=== PATIENT | male | born 1930 | race Caucasian/White ===

== ENCOUNTER → 2016-09-24 | Outpatient (CLI) | payer MEDICARE ==
[2016-09-24 12:54] LABS: Appearance,Urine Clear (Clear); Bilirubin,Urine Negative (Negative); Glucose,Urine (UA) Negative (Negative); Ketones,Urine Negative (Negative); Leukocyte Esterase,Urine Negative (Negative); Nitrite,Urine Negative (Negative); Protein,Urine Negative (Negative); Specific Gravity,Urine 1.006 (1.001-1.035); UA Billing (MACRO vs. MICRO) CHEM; Urobilinogen,Urine <2.0 mg/dL (<2.0)
[2016-09-24 12:59] LABS: Anisocytosis Slight; CH 30.7; CHCM 33.4; HCT 27.8 % (39.0-53.0); HDW 2.72; HGB 9.7 gm/dL (13.0-17.5); MCH 32.3 pg (25.0-35.0); MCV 92.3 fL (80.0-100.0); Mean Platelet Volume 8.4; RBC 3.02 m/uL (4.30-5.90); RDW 16.5 % (11.5-15.5); WBC 6.6 k/uL (3.8-10.6)
[2016-09-24 13:15] LABS: Partial Thromboplastin Time 23.5 sec (22.0-30.0); Prothrombin Time 10.2 sec (9.0-12.0)
[2016-09-24 13:20] LABS: Calcium 9.1 mg/dL (8.4-10.2); Total Bilirubin 0.3 mg/dL (0.2-1.3); Total Protein 6.2 g/dL (6.3-8.2)
== END | disposition home or self-care (01) ==
LOC: LABPAT 11:52
PROVIDERS: ATTEND Orthopaedic Surgery
DX: Z01.812 Encounter for preprocedural laboratory examination (principal)
CPT/HCPCS: 80053; 81003; 85027; 85610; 85730; 87070

== ENCOUNTER 2016-10-11 08:00 | Inpatient (IN) | payer MEDICARE ==
[2016-10-05 12:06] VITALS: BMI 34.7
[~2016-10-11 08:00] MED LIST: ACETAMINOPHEN TAB 500 MG TAB PO ONE; DEXAMETHASONE SOD PHOSPHATE 10 MG/ML 1 ML VIAL IV ONE; HYDROmorphone 1 MG/ML 1 ML SYRINGE IVP PRN; MELOXICAM 7.5 MG TAB PO ONE; MIDAZOLAM 2 MG/2 ML VIAL IV PRN; ONDANSETRON 4 MG/2 ML VIAL IVP ONE; SCOPOLAMINE 1.5MG/72HR PATCH TRANSDERM ONE; TRANEXAMIC ACID 1,000 MG in SODIUM CHLORIDE 0.9% 100 ML IVPB ONE; ceFAZolin 2 GM in SODIUM CHLORIDE 0.9% 100 ML IVPB ONE
[2016-10-11] MEDS: LACTATED RINGERS 1,000 ML IV SCH (09:12)
[2016-10-11] MEDS ORDERED: LIDOCAINE 1% 20 ML VIAL (10MG/ML) FOR IV START INTRADERMA ONE (09:12)
[2016-10-11 09:19] LABS: Glucose,Whole Blood 143 mg/dL (75-99)
[2016-10-11] MEDS: fentaNYL (PF) 50 MCG/ML 2 ML AMP IV ONE ×2 (09:24→09:37)
[2016-10-11] MEDS ORDERED: HYDROmorphone 1 MG/ML 1 ML SYRINGE IVP PRN ×3 (09:38)
[2016-10-11] MEDS ORDERED: hydrOXYzine PAMOATE 25 MG CAP PO PRN (09:38)
[2016-10-11] MEDS ORDERED: HYDROcodone/APAP 7.5-325MG 1 EACH TAB PO PRN (09:38)
[2016-10-11] MEDS ORDERED: MAGNESIUM HYDROXIDE 2,400 MG/10 ML CUP PO PRN (09:38)
[2016-10-11] MEDS ORDERED: ONDANSETRON 4 MG/2 ML VIAL IVP PRN (09:38)
[2016-10-11] MEDS ORDERED: DIAZEPAM 5 MG TAB PO PRN ×2 (09:38)
[2016-10-11] MEDS ORDERED: NALOXONE 0.4 MG/ML 1 ML VIAL IV PRN (09:38)
[2016-10-11] MEDS ORDERED: MIDAZOLAM 2 MG/2 ML VIAL ONE (09:59)
[2016-10-11] MEDS ORDERED: HEPARIN SODIUM,PORCINE 10,000 UNIT/ML 1 ML VIAL ONE (09:59)
[2016-10-11] MEDS ORDERED: fentaNYL (PF) 50 MCG/ML 2 ML AMP ONE (09:59)
[2016-10-11] MEDS ORDERED: TRANEXAMIC ACID 1,000 MG/10 ML VIAL ONE (09:59)
[2016-10-11] MEDS ORDERED: SODIUM CHLORIDE 0.9% IRRIG 1,000 ML BTL IRRIGATION ONE (09:59)
[2016-10-11] MEDS ORDERED: ePHEDrine 50 MG/ML 1 ML AMP ONE (09:59)
[2016-10-11] MEDS ORDERED: SODIUM CHLORIDE 0.9% 100 ML BAG ONE (09:59)
[2016-10-11] MEDS ORDERED: ceFAZolin 3,000 MG in SODIUM CHLORIDE 0.9% IRRIGATIO 3,000 ML IRRIGATION ONE (10:28)
[2016-10-11] MEDS: ROPIVACAINE 246.25 MG, EPINEPHrine 0.5 MG, KETOROLAC 30 MG, cloNIDine HCL/PF 80 MCG, WA... MISCELLANE ONE ×10 (10:29→11:34)
[2016-10-11] MEDS ORDERED: LACTATED RINGERS 1,000 ML IV ONE (11:15)
--- NOTE | 2016-10-11 11:55 | P.OP ---
Date of Procedure: 10/11/16 Preoperative Diagnosis: Severe osteoarthritis right hip Postoperative Diagnosis: Severe osteoarthritis right hip Procedure(s) Performed: Right total hip arthroplasty with a direct anterior approach Implants: Garcia and nephew Polarstem size 3 standard Garcia & Nephew R3, 3 hole acetabular shell, 52 mm Garcia [employer] Nephew reflection 6.5 mm cancellus screw, 25 mm Garcia [employer] Nephew R3, XLPE 20 acetabular liner Garcia & Nephew Oxinium femoral head 36 m, +8 All components were press-fit. The articulation is ceramic on polyethylene. Anesthesia: spinal Surgeon: Negro Eldridge Surplus Property Disposal Agent #1: Marilin Walton Estimated Blood Loss (ml): 250 (63cc returned with cell saver) Pathology: other (Femoral head) Condition: stable Disposition: PACU Indications for Procedure: After failure of conservative treatment we discussed the surgical and nonsurgical treatment options at length. Patient wishes to proceed with a total hip arthroplasty with a direct anterior approach. Complications specific to this procedure were discussed at length, including but not limited to infection, leg length discrepancy, dislocation, and nerve injury. Patient is aware of all these complications and informed consent was obtained Operative Findings: The operative findings are consistent with severe osteoarthritis of the right hip Description of Procedure: Patient was seen and evaluated in the preoperative area, consent was reviewed, and the surgical site was marked with a skin marker. Patient was then brought to the operating room and given prophylactic antibiotics intravenously. 1 g of Tranexamic acid was also given. A spinal anesthetic was administered by the anesthesia department. The patient was then placed on the [place] table with the bony prominences well-padded. The hip area was then prepped and draped in usual sterile fashion. A universal timeout was then performed, which confirmed the patient's name, surgical site, ALLERGIES, and procedure being performed. Next the incision site was located at 1 cm distal and 1 cm lateral to the anterior superior iliac spine. The skin and subcutaneous tissues were sharply incised. Incision was carefully dissected down to the fascia overlying the tensor fascia lucy muscle. This fascia was then incised in line with the incision. Next, using blunt finger dissection, the tensor fascia lucy muscle was dissected off its investing fascia. The muscle was then carefully retracted laterally with a cobra retractor over the lateral neck of the femur. Next, the circumflex vessels were identified and cauterized using the AquaMantis device. The anterior hip capsule was then exposed. The capsule was then opened and an inverted T fashion. Cobra retractors were then placed intracapsularly. The proximal femur was then visualized. The femoral neck was then osteotomized appropriate level above the lesser trochanter. Small amount of traction was placed with the [place] table. A small wedge of bone was then removed from the remaining femoral head. Next, using a corkscrew femoral head was easily removed from the acetabulum. On gross visual inspection, the femoral head had complete loss of articular cartilage in multiple periarticular osteophytes. Attention was then turned to the acetabulum. the acetabulum was exposed and any remaining labrum was excised. Sequential reaming of the acetabulum was performed using fluoroscopic guidance. When the appropriate size was reached, a trial was then placed. The position and fit of the trial was checked with fluoroscopy. The trial was then removed. Then, using fluoroscopic guidance, the final implant was impacted at 20 of anteversion and 40 of abduction, and fully seated in the acetabulum. A screw was then placed in the acetabulum. Again fluoroscopy was used to check position of the screw. Next, the liner was then impacted, with a 20 elevated liner located in the anterior superior quadrant. Component locking was confirmed. Attention was then directed to the femur. With the aid of the [place] table, the femur was externally rotated to approximately 130, extended, and abducted under the opposite leg. A side hook was then placed under the proximal femur, and the side hook elevator was used to elevate the proximal femur. Retractors were then placed. A capsular release was performed, as well as a release of the conjoined tendon, which afforded excellent visualization of the proximal femur. Next, a box osteotome was used to lateralize the proximal femur. A teacher of the handicapped was then used to locate the femoral canal. Sequential broaching was then performed with appropriate size which afforded excellent fixation in the proximal femur. A trial was then placed with appropriate head and neck, and the hip was gently reduced with the aid of the [place] table. Fluoroscopy was then used to check position of the components, as well as to ensure equal leg lengths. The hip was then gently dislocated and the trials were then removed. Final implants were then impacted and the hip was again reduced. Final fluoroscopic x-rays confirmed that the components were in anatomic position, as well as equal leg lengths. The hip was also taken through range of motion, and found to be stable. The hip was then copiously irrigated with antibiotic solution with pulsatile lavage. The hip was then irrigated with Irrisept solution. The soft tissues were then injected with a ropivacaine solution, which consisted of 246.25 mg of ropivacaine, 0.5 mg of epinephrine, 30 mg of Toradol, 80 g of clonidine, and 48.45 mL of sterile water, for a total of 100 mL of fluid injected. A second dose of 1 g of Tranexamic acid was also given. the fascia was then closed with 2-0 strata fix suture. The subcutaneous tissue was closed with 3-0 Vicryl. The subcuticular tissue was closed with 3-0 strata fix suture. The skin was then closed with Dermabond tape. The patient was then transferred to the recovery room in stable condition. The political science research assistant SCARLETT Johnston was required due to the complexity of surgery, and the need for skilled surgical instruments inspector for positioning, draping, exposure, retraction, and closure of the wound.
[2016-10-11 12:24] LABS: Glucose,Whole Blood 194 mg/dL (75-99)
--- NOTE | 2016-10-11 12:47 | XR ---
Limited right hip HISTORY: Anterior hip replacement 2 intraoperative C-arm images document the procedure
--- NOTE | 2016-10-11 12:47 | FL ---
Fluoroscopy HISTORY: Hip replacement 1 minutes fluoroscopy time supplied to the referring clinician. 2 intraoperative C-arm images docum ent the procedure. See dictated report from orthopedic surgery.
--- NOTE | 2016-10-11 13:08 | XR ---
Right hip HISTORY: Status post right hip arthroplasty Single frontal view of the right hip No comparisons Postop change noted at the lumbosacral junction. Patient is status post right hip arthroplasty. Lucen cy present in the soft tissues compatible with postop state. Alignment is maintained. Small ossific d ensities present about the right hip. IMPRESSION: Orthopedic follow-up.
[2016-10-11] MEDS: ceFAZolin 2 GM in SODIUM CHLORIDE 0.9% 100 ML IVPB SCH (15:38)
[2016-10-11 16:12] LABS: Glucose,Whole Blood 298 mg/dL (75-99)
[2016-10-11] MEDS ORDERED: INSULIN LISPRO (humaLOG) 300 UNIT/3 ML VIAL SQ ONE (16:13)
[2016-10-11] MEDS: INSULIN LISPRO (humaLOG) 300 UNIT/3 ML VIAL SQ SCH ×2 (18:07→20:18)
[2016-10-11] MEDS: GABAPENTIN 300 MG CAP PO SCH (18:30)
[2016-10-11] MEDS: ATORVASTATIN 20 MG TAB PO SCH (18:31)
[2016-10-11] MEDS: DONEPEZIL 10 MG TAB PO SCH (18:31)
[2016-10-11] MEDS: TAMSULOSIN 0.4 MG CAP.ER.24H PO SCH (18:31)
[2016-10-11] MEDS: ALLOPURINOL 300 MG TAB PO SCH (18:31)
[2016-10-11] MEDS: TERAZOSIN 5 MG CAP PO SCH (18:31)
--- NOTE | 2016-10-11 18:44 | XR ---
EXAMINATION TYPE: XR chest 1V portable DATE OF EXAM: 10/11/2016 COMPARISON: NONE HISTORY: Rehabilitation placement TECHNIQUE: Single frontal view of the chest is obtained. FINDINGS: There is no heart failure nor confluent pneumonic infiltrate. There is poor respiration. T here are no hilar masses. IMPRESSION: Poor inspiration similar to old exam. No acute lung disease.
[2016-10-11] MEDS: SODIUM CHLORIDE 0.9% 1,000 ML IV SCH (19:44)
[2016-10-11 20:06] LABS: Glucose,Whole Blood 391 mg/dL (75-99)
[2016-10-11] MEDS: SENNOSIDES-DOCUSATE SODIUM 1 EACH TAB PO SCH (20:17)
[2016-10-11] MEDS: metFORMIN 500 MG TAB PO SCH (20:17)
[2016-10-11] MEDS: ASPIRIN 325 MG TAB PO SCH (20:17)
[2016-10-12] MEDS: ceFAZolin 2 GM in SODIUM CHLORIDE 0.9% 100 ML IVPB SCH (00:08)
[2016-10-12] MEDS: SODIUM CHLORIDE 0.9% 1,000 ML IV SCH (05:37)
[2016-10-12 07:05] LABS: Glucose,Whole Blood 196 mg/dL (75-99)
[2016-10-12 07:44] LABS: Calcium 8.5 mg/dL (8.4-10.2)
[2016-10-12 07:51] LABS: Basophils % (A) 0 %; CH 31.3; CHCM 33.3; Eosinophils % (A) 0 %; HCT 24.1 % (39.0-53.0); HDW 2.75; Luc # (Auto) 0.11; Luc % (Auto) 1; Lymphocytes # (A) 0.9 k/uL (1.0-4.8); Lymphocytes % (A) 8 %; MCH 31.1 pg (25.0-35.0); MCV 94.2 fL (80.0-100.0); Mean Platelet Volume 7.9; Monocytes # (A) 0.7 k/uL (0-1.0); Monocytes % (A) 6 %; Neutrophils # (A) 10.1 k/uL (1.3-7.7); Neutrophils % (A) 85 %; RBC 2.56 m/uL (4.30-5.90); RDW 15.9 % (11.5-15.5); WBC 11.8 k/uL (3.8-10.6); WBC (Perox) 12.56
[2016-10-12] MEDS: ISOSORBIDE MONONITRATE ER 60 MG TAB.ER.24H PO SCH (08:54)
[2016-10-12] MEDS: PANTOPRAZOLE 40 MG TABLET PO SCH (08:54)
[2016-10-12] MEDS: ASPIRIN 325 MG TAB PO SCH ×2 (08:54→21:40)
[2016-10-12] MEDS: metFORMIN 500 MG TAB PO SCH (08:54)
[2016-10-12] MEDS: GABAPENTIN 300 MG CAP PO SCH ×2 (08:54→17:33)
[2016-10-12] MEDS: INSULIN LISPRO (humaLOG) 300 UNIT/3 ML VIAL SQ SCH ×4 (08:55→21:40)
[2016-10-12] MEDS ORDERED: MELOXICAM 7.5 MG TAB PO SCH (09:00)
--- NOTE | 2016-10-12 09:52 | CONS ---
REASON FOR CONSULTATION: Renal failure. HISTORY OF PRESENT ILLNESS: This patient is an 86-year-old white male with history of chronic kidney disease, hypertension, diabetes, gastroesophageal reflux disease. Patient was admitted to the hospital for elective right hip arthroplasty which was done on 10/11/2016. Serum creatinine was at 1.7 mg/dl on 10/12/2016. Prior creatinine was 1.7 on 09/24/2016 as well. Patient's baseline appears to be around 1.5-1.7. Etiology of the CKD is nephrosclerosis. Patient does follow up as an outpatient. He was last seen about a month ago at the [place] office. I did note Mobic on his med list which was discontinued. The patient is currently voiding in a urinal and he states he feels okay with no complaints of nausea, vomiting, chest pains or shortness of breath. He is normally maintained on Lasix at home and states that his legs have been more swollen while his diuretics were held. Currently the patient is maintained on IV fluids at 60 mL an hour. PAST MEDICAL HISTORY: CKD stage 3B, hypertension, osteoarthritis, diabetes, gastroesophageal reflux disease, dyslipidemia. PAST SURGICAL HISTORY: Carpal tunnel surgery, back surgery, cardiac catheterization. SOCIAL HISTORY: Negative for smoking, drug abuse or alcohol abuse. MEDICATIONS: Currently include Glucophage, multivitamins, Narcan, Zofran, Imdur , insulin, Protonix, Flomax, Hytrin, Dilaudid, Neurontin, Zyloprim, aspirin, Lipitor, Valium, Aricept. On examination the patient is current comfortable. Awake, alert and oriented x3. Not in any acute distress. Blood pressure is 140/64, heart rate 67 per minute, patient is afebrile. HEART: S1/S2. LUNGS: Bilateral breath sounds are heard. ABDOMEN: Soft, obese, nontender. LOWER EXTREMITIES: Show edema 1+ bilaterally with chronic skin changes. BEHAVIOR INTERVENTIONIST: Grossly intact. LABS: Show sodium 137, potassium 4.0. Hemoglobin 8.0 gm/dl. Serum creatinine 1.7, BUN 56. ASSESSMENT: 1. Chronic kidney disease, NKF stage 3, secondary to nephrosclerosis. Renal function currently fairly stable. 2. Mild volume overload. Will discontinue the IV fluids. Patient is maintained on oral Lasix which we can continue for now. 3. Anemia, postoperatively with previous anemia of chronic disease. Check iron studies and maintain patient on Aranesp. 4. Hypertension, currently stable. 5. Status post right hip arthroplasty. Will discontinue the NSAIDs. We can use Leopold for pain control and IV Dilaudid also ordered which should be okay. PLAN: Discontinue IV fluids, discontinue Mobic, start Aranesp, check iron studies and repeat labs in the a.m. Thank you for this consultation. Will continue to follow the patient with you during his hospitalization. ABDIRIZAK
[2016-10-12 10:15] LABS: % Iron Saturation 12.2 % (20-50)
--- NOTE | 2016-10-12 10:46 | CONS ---
REASON FOR CONSULTATION: diabetes mellitus. Requested by orthopedic surgery. HISTORY OF PRESENT ILLNESS: This 86-year-old gentleman with the past medical history of CAD, history of diabetes, history of GERD, hypertension, hyperlipidemia; was admitted after total right hip arthroplasty. There is no history of any fever or rigors. No history of headache, loss of consciousness or seizures. The patient has been taking insulin previously but insulin has been cut down recently and blood sugars have been 150 in the morning after eating and at night they are around 190. Currently the blood sugars are 143, 194 and 298. PAST MEDICAL HISTORY: Diabetes mellitus, history of CAD, history of GERD, hypertension, hyperlipidemia. MEDICATIONS PRIOR TO ADMISSION: Home medications are: 1. Metformin 500 mg p.o. b.i.d. 2. Hytrin 5 mg. 3. Flomax 0.4. 4. Zocor 40 mg. 5. Protonix 40 mg p.o. 7. Mobic 15 mg. 8. Synthroid 75 mcg. 9. Imdur 120 mg p.o. a day. 10. [place] one tablet q6h p.r.n. 11. Neurontin 300 mg. 13. Lasix 80 q a.m. 14. Folic acid 1 mg. 15. Flonase. 16. Iron 325 mg daily. 17. Procrit 2000 q. monthly. 18. Aricept 10 mg with supper. 19. Aspirin 81 mg with supper. 20. Zyloprim 300 mg with supper. 21. Tylenol #3 one tab q6h p.r.n. ALLERGIES: BACLOFEN, CODEINE, MORPHINE, BACTRIM FAMILY HISTORY: History of cancer. SOCIAL HISTORY: History of occasional alcohol intake. No history of smoking. REVIEW OF SYSTEMS: ENT: No diminished hearing or vision. CARDIOVASCULAR: No angina or palpitation. RESPIRATORY: No cough.. GI: No nausea, no vomiting. : No dysuria. NERVOUS SYSTEM: No numbness or weakness. IMMUNOLOGY/ALLERGY: No asthma, hayfever. MUSCULOSKELETAL: As mentioned earlier. HEMATOLOGY: No history of anemia. ENDOCRINE: Diabetes and hypothyroidism. CONSTITUTIONAL: noted. PSYCHIATRIC: As mentioned earlier. PHYSICAL EXAMINATION: Alert and oriented x3. Pulse is 75, blood pressure 130/ 83, respiratory rate 18, temperature 97.2, pulse ox 98% on 2 liters. HEENT: Conjunctivae normal. Oral mucosa moist. NECK: No jugular venous distention. No thyroid enlargement, no lymph node enlargement. CARDIOVASCULAR: S1/.S2. RESPIRATIONS: Diminished breath sounds at the bases. No rhonchi, no crackles. ABDOMEN: Soft, nontender. No mass palpable. LEGS: Status post right hip arthroplasty. NERVOUS SYSTEM: Higher functions as mentioned earlier. Moves all four limbs. No focal weakness. LYMPHATICS. No lymph node palpable in neck or axillae. SKIN: No rash. LABS: Accu-Cheks 143, 194, 298. Other labs are done previously. Prior to admission hemoglobin is 9.7. Coags are normal. Chemistry showed creatinine 1.74. TSH is 8.460. Free T4 is 0.81. Intact PTH was 61.9. ASSESSMENT: 1. Status post right total hip arthroplasty. 2. Chronic kidney disease, stage 3. 3. Mildly increased intact PTH. 4. Diabetes mellitus type 2. 5. Anemia, normocytic anemia of chronic disease possible. 6. History of coronary artery disease. 7. History of congestive heart failure. 8. Hypertension. 9. Hyperlipidemia. 10. History of hypothyroidism. 11. History of right coronary artery stent. 12. Anxiety and depression. RECOMMENDATION AND DISCUSSION: This 86-year-old gentleman presented with multiple complex medical issues. Will monitor the patient closely, continue with current medication, continue symptomatic treatment. Recommend resuming the home medications and also recommend Accu-Cheks a.c. and h.s. Also, 10 units of insulin can be given. Recommend hemoglobin A1c. Will continue to monitor. The prognosis is guarded because of multiple complex medical issues. Further recommendations to follow. See orders for further details. I would also recommend baseline labs to ensure the normalcy of the creatinine. Otherwise, continue to monitor. Recommend resuming the antiplatelets when okay with orthopedic surgery. Otherwise, as far as the diabetes is concerned, we will control with some extra doses of insulin and hopefully will be able to control with medications. Recommend close follow up with the primary physician in the outpatient setting. ABDIRIZAK
[2016-10-12] MEDS ORDERED: DARBEPOETIN ALFA 25 MCG/0.42 ML SYRINGE SQ SCH (11:00)
[2016-10-12] MEDS: FUROSEMIDE 80 MG TAB PO PRN (11:34)
[2016-10-12 11:43] LABS: Hemoglobin A1C 7.6 % (4.2-6.1)
[2016-10-12 11:44] LABS: Glucose,Whole Blood 250 mg/dL (75-99)
[2016-10-12] MEDS: FLUTICASONE 50MCG/SPRAY NASAL 16GM EA NOSTRIL SCH (11:46)
[2016-10-12] MEDS: FOLIC ACID 1 MG TAB PO SCH (11:51)
[2016-10-12] MEDS: MULTIVITAMINS, THERA 1 EACH TAB PO SCH (11:51)
--- NOTE | 2016-10-12 12:08 | P.PN ---
Subjective Principal diagnosis: Status post right total hip arthroplasty This is a pleasant 86-year-old male who is status post right total hip arthroplasty. This is postoperative day #1. Patient was seen and examined at bedside with Dr. Negro Eldridge today. Patient states he has some dizziness with standing but the patient has been sitting up in chair today and feeling well. Patient states he is to work with physical therapy more today. Patient states his pain has been under control. Patient otherwise has no new complaints today. Objective - Vital Signs Vital signs: Vital Signs Temp 97.6 F 10/12/16 07:00 Pulse 98 10/12/16 07:00 Resp 15 10/12/16 07:00 BP 140/64 10/12/16 07:00 Pulse Ox 96 10/12/16 09:05 Intake & Output 10/11/16 10/12/16 10/12/16 18:59 06:59 18:59 Intake Total 2191 760 Output Total 675 400 400 Balance 1516 360 -400 Weight 88.904 kg Intake: IV 1711 660 Sodium Chloride 0.9% 1, 60 660 000 ml @ 60 mls/hr IV . [id number] ERNST Rx#:[id number] Intake, IV Titration 100 Amount ceFAZolin 2 gm In Sodium 100 Chloride 0.9% 100 ml @ 100 mls/hr IVPB Q8HR ERNST Rx#:[id number] Oral 480 Output: Urine 425 400 400 Estimated Blood Loss 250 Other: Voiding Method Urinal - Exam Vital signs are stable. Patient is in no acute distress and is alert and oriented 3. Calf is soft and nontender. Incision is clean, dry, and intact. Neurovascular status intact. Patient has full foot and ankle motion. - Labs CBC & Chem 7: 10/12/16 07:02 10/12/16 07:02 Labs: Abnormal Lab Results - Last 24 Hours (Table) 10/11/16 10/11/16 10/11/16 Range/Units 12:22 16:09 20:05 WBC (3.8-10.6) k/uL RBC (4.30-5.90) m/uL Hgb (13.0-17.5) gm/dL Hct (39.0-53.0) % RDW (11.5-15.5) % Neutrophils # (1.3-7.7) k/uL Lymphocytes # (1.0-4.8) k/uL BUN (9-20) mg/dL Creatinine (0.66-1.25) mg/dL Glucose (74-99) mg/dL POC Glucose (mg/dL) 194 H 298 H 391 H (75-99) mg/dL Iron (49-181) ug/dL TIBC (261-462) ug/dL % Saturation (20-50) % 10/12/16 10/12/16 10/12/16 Range/Units 07:01 07:01 07:02 WBC 11.8 H (3.8-10.6) k/uL RBC 2.56 L (4.30-5.90) m/uL Hgb 8.0 L D (13.0-17.5) gm/dL Hct 24.1 L (39.0-53.0) % RDW 15.9 H (11.5-15.5) % Neutrophils # 10.1 H (1.3-7.7) k/uL Lymphocytes # 0.9 L (1.0-4.8) k/uL BUN (9-20) mg/dL Creatinine (0.66-1.25) mg/dL Glucose (74-99) mg/dL POC Glucose (mg/dL) 196 H (75-99) mg/dL Iron 23 L (49-181) ug/dL TIBC 188 L (261-462) ug/dL % Saturation 12.2 L (20-50) % 10/12/16 10/12/16 Range/Units 07:02 11:38 WBC (3.8-10.6) k/uL RBC (4.30-5.90) m/uL Hgb (13.0-17.5) gm/dL Hct (39.0-53.0) % RDW (11.5-15.5) % Neutrophils # (1.3-7.7) k/uL Lymphocytes # (1.0-4.8) k/uL BUN 56 H (9-20) mg/dL Creatinine 1.74 H (0.66-1.25) mg/dL Glucose 164 H (74-99) mg/dL POC Glucose (mg/dL) 250 H (75-99) mg/dL Iron (49-181) ug/dL TIBC (261-462) ug/dL % Saturation (20-50) % Assessment and Plan (1) Primary osteoarthritis of right hip Status: Acute (2) S/P total hip arthroplasty Status: Acute Plan: Continue routine postop care. Continue antocoagulation. Weightbearing as tolerated with a walker Daily dressing changes, keep incision clean and dry Anticipate discharge to rehab on
[2016-10-12 16:51] LABS: Glucose,Whole Blood 208 mg/dL (75-99)
[2016-10-12] MEDS: ALLOPURINOL 300 MG TAB PO SCH (17:33)
[2016-10-12] MEDS: TERAZOSIN 5 MG CAP PO SCH (17:33)
[2016-10-12] MEDS: TAMSULOSIN 0.4 MG CAP.ER.24H PO SCH (17:33)
[2016-10-12] MEDS: LEVOTHYROXINE 75 MCG TAB PO SCH (17:33)
[2016-10-12] MEDS: DONEPEZIL 10 MG TAB PO SCH (17:33)
[2016-10-12] MEDS: ATORVASTATIN 20 MG TAB PO SCH (17:33)
[2016-10-12 20:00] LABS: Glucose,Whole Blood 231 mg/dL (75-99)
[2016-10-12] MEDS ORDERED: Acetaminophen-Codeine 300-30mg TAB PO PRN (20:35)
[2016-10-12] MEDS: Acetaminophen-Codeine 300-30mg TAB PO PRN (21:39)
[2016-10-12] MEDS: SENNOSIDES-DOCUSATE SODIUM 1 EACH TAB PO SCH (21:39)
[2016-10-12] MEDS: CALCIUM CARBONATE 500 MG CHEWABLE PO PRN (23:34)
[2016-10-12] MEDS: INSULIN GLARGINE 100 UNIT/ML 10 ML VIAL SQ SCH (23:51)
[2016-10-13] MEDS: Acetaminophen-Codeine 300-30mg TAB PO PRN (02:54)
[2016-10-13 06:57] LABS: Glucose,Whole Blood 110 mg/dL (75-99)
[2016-10-13 07:49] LABS: Calcium 8.5 mg/dL (8.4-10.2)
[2016-10-13] MEDS: HYDROcodone/APAP 7.5-325MG 1 EACH TAB PO PRN ×2 (08:20→15:12)
[2016-10-13] MEDS: GABAPENTIN 300 MG CAP PO SCH ×2 (08:20→17:31)
[2016-10-13] MEDS: INSULIN LISPRO (humaLOG) 300 UNIT/3 ML VIAL SQ SCH ×4 (08:21→21:17)
[2016-10-13] MEDS: ASPIRIN 325 MG TAB PO SCH ×2 (08:21→21:30)
[2016-10-13] MEDS: FLUTICASONE 50MCG/SPRAY NASAL 16GM EA NOSTRIL SCH (08:24)
[2016-10-13] MEDS: PANTOPRAZOLE 40 MG TABLET PO SCH (09:23)
[2016-10-13] MEDS: ISOSORBIDE MONONITRATE ER 60 MG TAB.ER.24H PO SCH (09:23)
[2016-10-13] MEDS: FUROSEMIDE 80 MG TAB PO PRN (09:24)
--- NOTE | 2016-10-13 10:18 | P.PN ---
Subjective Principal diagnosis: Status post right total hip arthroplasty This is a pleasant 86-year-old male who is status post right total hip arthroplasty. This is postoperative day #2. Patient was seen and examined at bedside with Dr. Negro Eldridge today. Patient states the pain in the hip has been under control. Patient still complains of some right knee pain. Patient states he has been up and walking. Patient otherwise has no new complaints today. Objective - Vital Signs Vital signs: Vital Signs Temp 99 F 10/13/16 07:00 Pulse 68 10/13/16 07:00 Resp 15 10/13/16 07:00 BP 136/66 10/13/16 07:00 Pulse Ox 98 10/13/16 07:00 Intake & Output 10/12/16 10/13/16 10/13/16 18:59 06:59 18:59 Intake Total 120 Output Total 700 800 200 Balance -700 -800 -80 Intake: Oral 120 Output: Urine 700 800 200 Other: Voiding Method Urinal Urinal Toilet Urinal - Exam Vital signs are stable. Patient is in no acute distress and is alert and oriented 3. Calf is soft and nontender. Dressing over incision is intact. Neurovascular status intact. Patient has full foot and ankle motion. - Labs CBC & Chem 7: 10/12/16 07:02 10/13/16 07:00 Labs: Abnormal Lab Results - Last 24 Hours (Table) 10/12/16 10/12/16 10/12/16 Range/Units 07:01 07:02 11:38 BUN (9-20) mg/dL Creatinine (0.66-1.25) mg/dL POC Glucose (mg/dL) 250 H (75-99) mg/dL Hemoglobin A1c 7.6 H (4.2-6.1) % Iron 23 L (49-181) ug/dL TIBC 188 L (261-462) ug/dL % Saturation 12.2 L (20-50) % 10/12/16 10/12/16 10/13/16 Range/Units 16:42 19:57 06:54 BUN (9-20) mg/dL Creatinine (0.66-1.25) mg/dL POC Glucose (mg/dL) 208 H 231 H 110 H (75-99) mg/dL Hemoglobin A1c (4.2-6.1) % Iron (49-181) ug/dL TIBC (261-462) ug/dL % Saturation (20-50) % 10/13/16 Range/Units 07:00 BUN 65 H (9-20) mg/dL Creatinine 2.01 H (0.66-1.25) mg/dL POC Glucose (mg/dL) (75-99) mg/dL Hemoglobin A1c (4.2-6.1) % Iron (49-181) ug/dL TIBC (261-462) ug/dL % Saturation (20-50) % Assessment and Plan (1) Primary osteoarthritis of right hip Status: Acute (2) S/P total hip arthroplasty Status: Acute Plan: Continue routine postop care. Continue antocoagulation. Weightbearing as tolerated with a walker Daily dressing changes, keep incision clean and dry Discussed with patient that if he is still have knee pain at 2 week follow up appointment, patient may have a cortisone injection at that time. Anticipate discharge to rehab on
[2016-10-13 11:14] LABS: Glucose,Whole Blood 255 mg/dL (75-99)
--- NOTE | 2016-10-13 11:32 | PN ---
DATE OF SERVICE: 10/12/2016 This is an 86-year-old gentleman who was admitted after right total hip arthroplasty, has improved significantly. No chest pain or palpitation, no fever. On exam, alert and oriented x3. The pulse is 62, blood pressure is 130/52, respirations 16, temperature is 98.2, pulse ox 96% on room air. HEENT: Conjunctivae normal. NECK: No jugular venous distension. RESPIRATORY: Breath sounds diminished at the bases, some scattered rhonchi, no crackles. ABDOMEN: Soft, nontender, no mass palpable. LEGS: Status post surgery. NERVOUS SYSTEM: No focal deficits. LABS: Hemoglobin is 18, creatinine is 1.74. ASSESSMENT: 1. Status post right total knee arthroplasty. 2. Chronic kidney disease stage III. 3. Mildly increased intact PTH. 4. Diabetes mellitus type 2. 5. Normocytic anemia of chronic disease. 6. History of coronary artery disease. 7. History of congestive heart failure. 8. Hypertension. 9. Hyperlipidemia. 10. Hypothyroidism. 11. History of coronary artery disease, stent. 12. Anxiety, depression. RECOMMENDATION: Recommend to continue with the current medication, continue with the symptomatic treatment. Otherwise, will monitor the patient closely. Continue with the hydration, monitor blood sugars closely. Otherwise, recommend to hold the metformin and also initiate small dose of Lantus and continue to monitor. Will initiate incentive spirometry. Further recommendations to follow. MTDD
[2016-10-13] MEDS: FOLIC ACID 1 MG TAB PO SCH (13:04)
[2016-10-13] MEDS: MULTIVITAMINS, THERA 1 EACH TAB PO SCH (13:05)
[2016-10-13] MEDS: CALCIUM CARBONATE 500 MG CHEWABLE PO PRN (16:15)
[2016-10-13 17:28] LABS: Glucose,Whole Blood 201 mg/dL (75-99)
[2016-10-13] MEDS: TERAZOSIN 5 MG CAP PO SCH (17:30)
[2016-10-13] MEDS: ALLOPURINOL 300 MG TAB PO SCH (17:30)
[2016-10-13] MEDS: LEVOTHYROXINE 75 MCG TAB PO SCH (17:31)
[2016-10-13] MEDS: DONEPEZIL 10 MG TAB PO SCH (17:31)
[2016-10-13] MEDS: TAMSULOSIN 0.4 MG CAP.ER.24H PO SCH (17:31)
[2016-10-13] MEDS: ATORVASTATIN 20 MG TAB PO SCH (17:44)
[2016-10-13] MEDS: LACTATED RINGERS 1,000 ML IV SCH ×2 (18:58→18:59)
[2016-10-13 20:33] LABS: Glucose,Whole Blood 216 mg/dL (75-99)
[2016-10-13] MEDS: INSULIN GLARGINE 100 UNIT/ML 10 ML VIAL SQ SCH (21:16)
[2016-10-13] MEDS: SENNOSIDES-DOCUSATE SODIUM 1 EACH TAB PO SCH (21:16)
[2016-10-14] MEDS: Acetaminophen-Codeine 300-30mg TAB PO PRN ×2 (00:22→18:45)
[2016-10-14] MEDS: LACTATED RINGERS 1,000 ML IV SCH (05:24)
[2016-10-14 07:05] LABS: Glucose,Whole Blood 59 mg/dL (75-99)
[2016-10-14 07:20] LABS: Glucose,Whole Blood 86 mg/dL (75-99)
[2016-10-14] MEDS: INSULIN LISPRO (humaLOG) 300 UNIT/3 ML VIAL SQ SCH ×5 (07:38→21:44)
[2016-10-14 07:54] LABS: Basophils % (A) 0 %; CH 31.1; CHCM 32.8; Eosinophils # (A) 0.3 k/uL (0-0.7); Eosinophils % (A) 4 %; HCT 23.5 % (39.0-53.0); HDW 2.58; HGB 7.6 gm/dL (13.0-17.5); Luc # (Auto) 0.13; Luc % (Auto) 2; Lymphocytes # (A) 1.5 k/uL (1.0-4.8); Lymphocytes % (A) 19 %; MCH 30.8 pg (25.0-35.0); MCHC 32.5 g/dL (31.0-37.0); Mean Platelet Volume 8.1; Monocytes # (A) 0.5 k/uL (0-1.0); Monocytes % (A) 6 %; Neutrophils # (A) 5.3 k/uL (1.3-7.7); Neutrophils % (A) 69 %; RBC 2.48 m/uL (4.30-5.90); RDW 15.9 % (11.5-15.5); WBC 7.7 k/uL (3.8-10.6); WBC (Perox) 8.18
--- NOTE | 2016-10-14 08:08 | PN ---
DATE OF SERVICE: 10/13/2017 This 86-year-old gentleman admitted after right total hip arthroplasty also had chronic kidney disease stage III. No chest pain or palpitation. No fever. No shortness of breath. On exam, alert and oriented x3. Pulse is 68. Blood pressure is 136/66, respirations 15, temperature 98 degrees, pulse ox 98% on room air. HEENT: Conjunctivae normal. NECK: No jugular venous distention. CARDIOVASCULAR: S1 and S2 muffled. RESPIRATORY: Breath sounds diminished at the bases. No rhonchi, no crackles. ABDOMEN: Soft, LEGS: Status post surgery. NERVOUS SYSTEM: No focal deficits. Labs are creatinine 2.01. ASSESSMENT: 1. Status post right total hip arthroplasty. 2. Chronic kidney disease stage III. 3. Mild increase intact PTH 4. Diabetes mellitus type 2. 5. Normocytic anemia, chronic disease. 6. History of coronary artery disease. 7. History of congestive heart failure. RECOMMENDATIONS AND DISCUSSION: Recommend to continue current medications. Continue symptomatic treatment. Otherwise closely monitor creatinine, DVT prophylaxis. Further recommendations to follow. MTDD
--- NOTE | 2016-10-14 08:43 | P.DS ---
Providers Date of admission: 10/11/16 08:00 Expected date of discharge: 10/14/16 Attending physician: Negro Eldridge Consults: 10/11/16 09:38 Consult Physician Routine Consulting Provider: Aster Velasco Consult Reason/Comments: medical management Do you want consulting provider notified?: Yes Primary care physician: Mor Lara - Discharge Diagnosis(es) (1) Primary osteoarthritis of right hip Current Visit: Yes Status: Acute (2) S/P total hip arthroplasty Current Visit: Yes Status: Acute Hospital Course: This is a 86-year-old male with known history of degenerative arthritis of the right hip. The patient presents for evaluation. After discussion and consideration patient elects to proceed with total hip arthroplasty. The patient is seen preoperatively by Dr. Eldridge and cleared for surgery. Patient is admitted to [facility] on 10/11/2016 for total hip arthroplasty. The procedures performed without complication or sequelae. The patient is doing well postoperatively. Labs and vital signs are stable on day of discharge. Patient's hemoglobin was 7.6 on day of discharge. Patient will receive one unit of blood today. On day of discharge patient's hip incision is healing well. There is minimal erythema. There is no drainage noted at this time. There is minimal soft tissue swelling to the hip and thigh. Patient has full foot and ankle motion without difficulty or pain. Neurovascular status to the right lower extremity is intact. Patient is discharged to rehab in good condition. Please see med rec for accurate list of home medications. Plan - Discharge Summary New Discharge Prescriptions: New Aspirin 325 mg PO BID #60 tab Sennosides-Docusate Sodium [Senokot-S] 1 tab PO BID #60 tablet Acetaminophen-Codeine 300-30mg [Tylenol #3] 1 - 2 tab PO Q4-6H PRN #90 tablet PRN Reason: Pain No Action Pantoprazole Sodium 40 mg PO DAILY Gabapentin [Neurontin] 300 mg PO QAM Gabapentin 600 mg PO W/SUPPER Terazosin [Hytrin] 5 mg PO W/SUPPER Aspirin 81 mg PO W/SUPPER Tamsulosin [Flomax] 0.4 mg PO W/SUPPER Simvastatin [Zocor] 40 mg PO W/SUPPER Levothyroxine Sodium [Synthroid] 75 mcg PO DAILY@1600 Furosemide [Lasix] 80 - 160 mg PO QAM PRN PRN Reason: Edema Allopurinol [Zyloprim] 300 mg PO W/SUPPER Donepezil [Aricept] 10 mg PO W/SUPPER Ferrous Sulfate [Iron (65 MG Elemental)] 325 mg PO DAILY Isosorbide Mononitrate [Imdur] 120 mg PO DAILY Multivit-Min/FA/Lycopen/Lutein [Centrum Silver Tablet] 1 tab PO DAILY Epoetin Garrett [Procrit] 2,000 unit INJ QMONTH PRN PRN Reason: anemia Acetaminophen-Codeine 300-30mg [Tylenol #3] 1 tab PO Q6H PRN PRN Reason: Pain Fluticasone Nasal [place] [Flonase Nasal [place]] 1 spray EA NOSTRIL DAILY Meloxicam [Mobic] 15 mg PO DAILY metFORMIN HCL [Glucophage] 500 mg PO BID Folic Acid(Dose Unknown) 1 tab PO DAILY Hydrocodone/Acetaminophen [[place] 5-325] 1 tab PO Q6HR PRN PRN Reason: Pain Discharge Medication List Aspirin 81 mg PO W/SUPPER 08/31/13 [History] Gabapentin 600 mg PO W/SUPPER 08/31/13 [History] Gabapentin [Neurontin] 300 mg PO QAM 08/31/13 [History] Pantoprazole Sodium 40 mg PO DAILY 08/31/13 [History] Simvastatin [Zocor] 40 mg PO W/SUPPER 08/31/13 [History] Tamsulosin [Flomax] 0.4 mg PO W/SUPPER 08/31/13 [History] Terazosin [Hytrin] 5 mg PO W/SUPPER 08/31/13 [History] Furosemide [Lasix] 80 - 160 mg PO QAM PRN 12/17/13 [History] Levothyroxine Sodium [Synthroid] 75 mcg PO DAILY@1600 12/17/13 [History] Allopurinol [Zyloprim] 300 mg PO W/SUPPER 03/10/14 [History] Donepezil [Aricept] 10 mg PO W/SUPPER 11/13/15 [History] Epoetin Garrett [Procrit] 2,000 unit INJ QMONTH PRN 11/13/15 [History] Ferrous Sulfate [Iron (65 MG Elemental)] 325 mg PO DAILY 11/13/15 [History] Isosorbide Mononitrate [Imdur] 120 mg PO DAILY 11/13/15 [History] Multivit-Min/FA/Lycopen/Lutein [Centrum Silver Tablet] 1 tab PO DAILY 11/13/15 [ History] Acetaminophen-Codeine 300-30mg [Tylenol #3] 1 tab PO Q6H PRN 10/05/16 [History] Fluticasone Nasal [place] [Flonase Nasal [place]] 1 spray EA NOSTRIL DAILY 10/05/16 [History] Folic Acid(Dose Unknown) 1 tab PO DAILY 10/05/16 [History] Meloxicam [Mobic] 15 mg PO DAILY 10/05/16 [History] metFORMIN HCL [Glucophage] 500 mg PO BID 10/05/16 [History] Hydrocodone/Acetaminophen [[place] 5-325] 1 tab PO Q6HR PRN 10/11/16 [History] Acetaminophen-Codeine 300-30mg [Tylenol #3] 1 - 2 tab PO Q4-6H PRN #90 tablet [Rx] Aspirin 325 mg PO BID #60 tab 10/14/16 [Rx] Sennosides-Docusate Sodium [Senokot-S] 1 tab PO BID #60 tablet 10/14/16 [Rx] Follow up Appointment(s)/Referral(s): Negro Eldridge DO [Doctor of Osteopathic Medicine] - 2 Weeks Activity/Diet/Wound Care/Special Instructions: Weightbearing as tolerated with walker May shower after 2 days if no drainage from the incision Follow-up with [facility] in 2 weeks with any questions or concerns, [phone] Discharge Disposition: TRANSFER TO SNF/F
[2016-10-14] MEDS: ASPIRIN 325 MG TAB PO SCH ×2 (09:09→21:43)
[2016-10-14] MEDS: GABAPENTIN 300 MG CAP PO SCH ×2 (09:10→17:29)
[2016-10-14] MEDS: FOLIC ACID 1 MG TAB PO SCH (09:10)
[2016-10-14] MEDS: FLUTICASONE 50MCG/SPRAY NASAL 16GM EA NOSTRIL SCH (09:10)
[2016-10-14] MEDS: MULTIVITAMINS, THERA 1 EACH TAB PO SCH (09:10)
[2016-10-14] MEDS: PANTOPRAZOLE 40 MG TABLET PO SCH (09:10)
[2016-10-14] MEDS: ISOSORBIDE MONONITRATE ER 60 MG TAB.ER.24H PO SCH (09:10)
[2016-10-14] MEDS: HYDROcodone/APAP 7.5-325MG 1 EACH TAB PO PRN (09:13)
[2016-10-14 09:34] LABS: Calcium 8.5 mg/dL (8.4-10.2); Potassium 3.6 mmol/L (3.5-5.1)
[2016-10-14 10:37] LABS: Appearance,Urine Clear (Clear); Bilirubin,Urine Negative (Negative); Glucose,Urine (UA) Negative (Negative); Ketones,Urine Negative (Negative); Leukocyte Esterase,Urine Negative (Negative); Nitrite,Urine Negative (Negative); PH, Urine 5.5 (5.0-8.0); Protein,Urine Trace (Negative); UA Billing (MACRO vs. MICRO) CHEM; Urobilinogen,Urine <2.0 mg/dL (<2.0)
[2016-10-14 11:39] LABS: Glucose,Whole Blood 215 mg/dL (75-99)
--- NOTE | 2016-10-14 12:03 | PN ---
The patient is seen for followup for chronic kidney disease. He is status post right hip arthroplasty. Patient did receive a couple of doses of nonsteroidal anti-inflammatory agents. His serum creatinine was at 1.7. It went up to 2.0 and now it is back at 1.8. His baseline creatinine has been lately around 1.5 to 1.7 mg/dL. Patient's hemoglobin was noted to be low at 7.6 and he is being transfused 1 unit of packed RBCs. On examination today, the patient is comfortable. Blood pressure 153/65, heart rate 99 per minute. He is afebrile. EXAMINATION OF THE HEART: S1 and S2. EXAMINATION OF THE LUNGS: Decreased breath sounds at the bases. Abdomen is soft, nontender. Examination of the lower extremities shows edema, trace bilaterally. HEAD OF INSIGHT exam is grossly intact. Labs show a hemoglobin of 7.6 from today. Serum creatinine 1.8. BUN 70. Sodium 139, potassium 3.6. ASSESSMENT: 1. 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 2. Anemia, postoperatively being transfused 1 unit packed RBCs. Patient does have underlying anemia of chronic disease and is maintained on Aranesp. 3. Mild volume overload. Continue with current dose of oral Lasix. 4. Status post right hip arthroplasty. PLAN: Okay for discharge from nephrology standpoint. Repeat CBC and BMP as outpatient in about one week's time and we will follow up on the need for Procrit as outpatient. [facility]
[2016-10-14] MEDS: FUROSEMIDE 80 MG TAB PO PRN (13:30)
[2016-10-14 17:02] LABS: Glucose,Whole Blood 132 mg/dL (75-99)
[2016-10-14] MEDS: TAMSULOSIN 0.4 MG CAP.ER.24H PO SCH (17:28)
[2016-10-14] MEDS: TERAZOSIN 5 MG CAP PO SCH (17:28)
[2016-10-14] MEDS: ALLOPURINOL 300 MG TAB PO SCH (17:28)
[2016-10-14] MEDS: LEVOTHYROXINE 75 MCG TAB PO SCH (17:48)
[2016-10-14] MEDS: ATORVASTATIN 20 MG TAB PO SCH (17:48)
[2016-10-14] MEDS: DONEPEZIL 10 MG TAB PO SCH (18:39)
[2016-10-14 20:57] LABS: Glucose,Whole Blood 234 mg/dL (75-99)
[2016-10-14] MEDS: SENNOSIDES-DOCUSATE SODIUM 1 EACH TAB PO SCH (21:43)
[2016-10-15 00:50] LABS: Glucose,Whole Blood 210 mg/dL (75-99)
[2016-10-15] MEDS: Acetaminophen-Codeine 300-30mg TAB PO PRN ×2 (04:07→08:59)
[2016-10-15 07:05] LABS: Glucose,Whole Blood 181 mg/dL (75-99)
[2016-10-15 07:58] LABS: Basophils % (A) 0 %; CH 31.4; CHCM 33.9; Eosinophils # (A) 0.4 k/uL (0-0.7); Eosinophils % (A) 6 %; HCT 25.2 % (39.0-53.0); HGB 8.5 gm/dL (13.0-17.5); Luc # (Auto) 0.12; Luc % (Auto) 2; Lymphocytes # (A) 0.9 k/uL (1.0-4.8); Lymphocytes % (A) 13 %; MCH 31.3 pg (25.0-35.0); MCHC 33.6 g/dL (31.0-37.0); MCV 93.1 fL (80.0-100.0); Mean Platelet Volume 8.6; Monocytes # (A) 0.4 k/uL (0-1.0); Monocytes % (A) 5 %; Neutrophils # (A) 5.4 k/uL (1.3-7.7); Neutrophils % (A) 75 %; WBC 7.3 k/uL (3.8-10.6); WBC (Perox) 7.96
[2016-10-15 08:05] LABS: Calcium 8.2 mg/dL (8.4-10.2); Potassium 3.8 mmol/L (3.5-5.1)
--- NOTE | 2016-10-15 08:37 | P.PN ---
Progress Note - Text This is an 86-year-old male status post total hip arthroplasty. His discharge was held yesterday due to postoperative anemia. His hemoglobin is 8.5 today. He is stable from an orthopedic standpoint for transfer to inpatient rehab. Patient may be discharged today. Please see previous discharge summary and med rec.
[2016-10-15] MEDS: GABAPENTIN 300 MG CAP PO SCH (08:56)
[2016-10-15] MEDS: ASPIRIN 325 MG TAB PO SCH (08:56)
[2016-10-15] MEDS: PANTOPRAZOLE 40 MG TABLET PO SCH (08:56)
[2016-10-15] MEDS: FLUTICASONE 50MCG/SPRAY NASAL 16GM EA NOSTRIL SCH (08:56)
[2016-10-15] MEDS: ISOSORBIDE MONONITRATE ER 60 MG TAB.ER.24H PO SCH (08:57)
[2016-10-15] MEDS: FUROSEMIDE 80 MG TAB PO PRN (08:57)
[2016-10-15] MEDS: INSULIN LISPRO (humaLOG) 300 UNIT/3 ML VIAL SQ SCH ×4 (09:00→13:15)
[2016-10-15] MEDS: LACTATED RINGERS 1,000 ML IV SCH (09:03)
--- NOTE | 2016-10-15 09:32 | PN ---
DATE OF SERVICE: 10/14/2016 This 86-year-old gentleman was admitted after right total hip joint arthroplasty , also has chronic kidney disease stage III. The patient is being closely monitored. The patient also had hypoglycemia today and multiple consultants are following the patient closely. The hemoglobin is also found to be 7.6 today. The glucose was 45. The patient also had elevated creatinine. The patient is apparently taking metformin at home. Patient also had some hypoglycemia at home. PAST MEDICAL HISTORY: Reviewed. REVIEW OF SYSTEMS: CARDIOVASCULAR: No angina. RESPIRATORY: As mentioned earlier. GI: As mentioned. : No dysuria. NERVOUS SYSTEM: No numbness or weakness. CURRENT MEDICATIONS: 1. Tylenol #3 2. [place] 7.5 3. Zyloprim 300 mg 4. Lipitor. 5. TUMs. 7. Valium 8. Aricept 9. Lasix. 10. Dilaudid. 11. Vistaril 12. Humalog 13. Imdur 14. Lactated Ringers 15. Synthroid 16. Milk of Magnesium 17. Narcan 18. Zofran 19. Flomax 20. Hytrin Doses reviewed. PHYSICAL EXAMINATION: The patient is alert and oriented x3. Pulse is 69, blood pressure 140/66, respirations 16, temperature 98.1, pulse ox 97% on room air. HEENT: Conjunctivae normal. NECK: No jugular venous distention. CARDIOVASCULAR: S1, S2. RESPIRATORY: Breath sounds diminished at the bases. A few scattered rhonchi and crackles. ABDOMEN: Soft, nontender, no mass palpable. LEGS: No edema, no swelling. NERVOUS SYSTEM: No focal deficits. LABS: WBC 7.7, hemoglobin 7.6, INR 1.8. ASSESSMENT: 1. Status post right hip joint arthroplasty 2. Anemia. 3. Chronic kidney disease, stage III. 4. Mild increase in intact PTH. 5. Hypoglycemia. 6. Diabetes mellitus type 2 uncontrolled. 7. Normocytic anemia of chronic disease. 8. History of coronary artery disease. 9. History of chronic heart failure. RECOMMENDATIONS AND DISCUSSION: In this 86-year-old who presented with multiple complex medical issues, will monitor at the patient closely. Continue the current medications, continue symptomatic treatment. At this time I recommend to stop the insulin and monitor sugars closely. NovoLog scale, 2 units with meals, which is to be held with Accu-Cheks less than 150 plus the scale. Metformin may also be stopped. Repeat labs in the morning. Closely monitor. Further recommendations to follow. One unit of transfusion has been given. See orders for details. Discussed with the patient and discussed with staff. See orders for further details. MTDD
[2016-10-15 09:34] VITALS: BP 132/54; PULSE 84; RESP 14; TEMP 98.9
[2016-10-15 11:50] LABS: Glucose,Whole Blood 172 mg/dL (75-99)
[2016-10-15] MEDS: MULTIVITAMINS, THERA 1 EACH TAB PO SCH (13:15)
[2016-10-15] MEDS: FOLIC ACID 1 MG TAB PO SCH (13:15)
--- NOTE | 2016-10-15 13:23 | PN ---
The patient is seen for follow-up for chronic kidney disease. He did have mild acute kidney injury with improvement in his renal function. Creatinine did not go up which was most likely related to the anemia. Hemoglobin dropped to 7.6. The patient was transfused yesterday. Hemoglobin is at 8.5 now. Serum creatinine down to 1.68. The patient is currently maintained on Lasix which we will continue. He does have underlying CKD stage IIIB secondary to nephrosclerosis. On examination, blood pressure is 132/54. Heart rate is 68 per minute. He is afebrile. Examination of the heart, S1, S2. Examination of the lungs bilateral breath sounds are heard. Abdomen is soft, nontender. Examination of the lower extremities shows edema 1+ bilaterally. Labs shows sodium 137, potassium 3.8, serum creatinine 1.68. Hemoglobin 8.5. ASSESSMENT: 1. Acute kidney injury, mainly prerenal associated with anemia, currently improved. 2. Chronic kidney disease, NKF Stage IIIB secondary to nephrosclerosis. The patient will follow-up as an outpatient at the [place] office. 3. Status post right hip arthroplasty. 4. Anemia, postoperatively, status post one unit packed RBC transfusion. Continue Aranesp. The patient is maintained on Procrit as an outpatient which we will continue. PLAN: The patient is stable for discharge from nephrology standpoint. He will follow-up as an outpatient for CKD at the [place] office. ABDIRIZAK
--- NOTE | 2016-10-15 21:49 | P.PN ---
Subjective This 86-year-old gentleman was admitted after right hip arthroplasty being closely monitored. The patient and chronic kidney disease stage III. No chest pain palpitation or shortness of breath. Objective - Vital Signs Vital signs: Vital Signs Temp 98.9 F 10/15/16 07:00 Pulse 84 10/15/16 08:00 Resp 14 10/15/16 07:00 BP 132/54 10/15/16 07:00 Pulse Ox 97 10/15/16 07:00 Intake & Output 10/15/16 10/15/16 10/16/16 06:59 18:59 06:59 Intake Total 780 120 Output Total 250 500 Balance 530 -380 Intake: Oral 780 120 Output: Urine 500 Urine/Stool Mix 250 Other: # Voids 350 4 - Exam On exam, alert and oriented x3. HEENT: Conjunctivae normal. eyes normal. NECK: No JVD. No thyroid enlargement. No LNs CARDIOVASCULAR: S1, S2 muffled. No murmur RESPIRATION: Breath sounds diminished in the bases. No rhonchi or crackles. No bronchial breathing. ABDOMEN: Soft, nontender . No guarding. no masses palpable. No ascites, No hepatosplenomegaly.Bowel sounds heard. LEGS: Status post surgery NERVOUS SYSTEM: Cranial N 2-12 grossly normal. Moves all 4 limbs. No focal deficits. No sensory deficit. No signs of cerebellar dysfucntion. Skin: no ulcer no rash Joints: No active swelling. No inflammation. Lymphatic system. No LN neck axilla or groin. - Labs CBC & Chem 7: 10/15/16 07:26 10/15/16 07:26 Labs: Abnormal Lab Results - Last 24 Hours (Table) 10/15/16 10/15/16 10/15/16 Range/Units 00:48 07:02 07:26 RBC 2.70 L (4.30-5.90) m/uL Hgb 8.5 L (13.0-17.5) gm/dL Hct 25.2 L (39.0-53.0) % RDW 16.0 H (11.5-15.5) % Lymphocytes # 0.9 L (1.0-4.8) k/uL BUN (9-20) mg/dL Creatinine (0.66-1.25) mg/dL Glucose (74-99) mg/dL POC Glucose (mg/dL) 210 H 181 H (75-99) mg/dL Calcium (8.4-10.2) mg/dL 10/15/16 10/15/16 Range/Units 07:26 11:48 RBC (4.30-5.90) m/uL Hgb (13.0-17.5) gm/dL Hct (39.0-53.0) % RDW (11.5-15.5) % Lymphocytes # (1.0-4.8) k/uL BUN 60 H (9-20) mg/dL Creatinine 1.68 H (0.66-1.25) mg/dL Glucose 153 H (74-99) mg/dL POC Glucose (mg/dL) 172 H (75-99) mg/dL Calcium 8.2 L (8.4-10.2) mg/dL Assessment and Plan Plan: Assessment 1. Status post right total joint arthroplasty 2. Anemia 3. Chronic kidney disease stage III 4. Diabetes type 2 uncontrolled and hypoglycemia Plan In this 86-year-old gentleman who was admitted after surgery I would recommend to continue the current medications. Recommend to hold metformin at this time. Monitor Accu-Cheks closely. Follow-up with the primary physician. Monitor creatinine. Rest of the recommendations per orthopedic surgery.
== END 2016-10-15 16:09 | DRG 470 ==
LOC: 2ORMAIN 08:00 → 3SUR 12:14
PROVIDERS: ADMIT Orthopaedic Surgery; ATTEND Orthopaedic Surgery
PROC: 0SR904A Replacement of Right Hip Joint with Ceramic on Polyethylene Synthetic Substitute, Uncemented, Open Approach (ICD-10-PCS; principal; 2016-10-11 09:30)
DX: M16.11 Unilateral primary osteoarthritis, right hip (principal); E11.22 Type 2 diabetes mellitus with diabetic chronic kidney disease; N17.9 Acute kidney failure, unspecified; N18.4 Chronic kidney disease, stage 4 (severe); I13.0 Hypertensive heart and chronic kidney disease with heart failure and stage 1 through stage 4 chronic kidney disease, or unspecified chronic kidney disease; E11.649 Type 2 diabetes mellitus with hypoglycemia without coma; I50.9 Heart failure, unspecified; D63.8 Anemia in other chronic diseases classified elsewhere; E03.9 Hypothyroidism, unspecified; E78.5 Hyperlipidemia, unspecified; F32.9 Major depressive disorder, single episode, unspecified; F41.9 Anxiety disorder, unspecified; I25.10 Atherosclerotic heart disease of native coronary artery without angina pectoris; K21.9 Gastro-esophageal reflux disease without esophagitis; Z79.82 Long term (current) use of aspirin; Z88.2 Allergy status to sulfonamides; Z79.84 Long term (current) use of oral hypoglycemic drugs; Z88.5 Allergy status to narcotic agent; Z95.5 Presence of coronary angioplasty implant and graft; Z79.899 Other long term (current) drug therapy
CPT/HCPCS: 71010; 73501; 80048; 81003; 83036; 83540; 83550; 85025; 86850; 86900; 86901; 86920; 88300; 94760

== ENCOUNTER → 2016-12-22 | Outpatient (CLI) | payer MEDICARE ==
--- NOTE | 2016-12-22 12:36 | FL ---
EXAMINATION: Cervical and Thoracic Esophagram DATE OF EXAM: 12/22/2016 CLINICAL INDICATION: 86-year-old male with dysphagia, patient complains of long-standing reflux, wors ening over the last 6 weeks. COMPARISON: None Total Fluoroscopy Time: 1.6 minutes. Total images: 28 FINDINGS: Swallowing shows some superficial penetration. No aspiration. Otherwise, hypopharyngeal anatomy is pr eserved. The cervical and thoracic portions have a normal course and caliber. Very mild tertiary peristaltic c ontractions are noted. No persistent filling defect or fixed narrowing is encountered in the esophagus. There is a small hiatal hernia. Valsalva maneuver elicits severe gastroesophageal reflux to the level of the thoracic inlet. Patient complains of feeling the barium in the back of his throat. Incidentally, there is diffuse gastric fold thickening with suggestion of multiple hyperplastic polyp s in the stomach. IMPRESSION: 1. Small hiatal hernia but with severe gastroesophageal reflux at least to the thoracic inlet. Patien t reports feeling the barium in the back of his throat when the reflux is visualized. 2. 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
== END | disposition home or self-care (01) ==
LOC: RADFLWHC 10:28
PROVIDERS: ATTEND Surgery Plastic and Reconstructive Surgery
DX: K44.9 Diaphragmatic hernia without obstruction or gangrene (principal); K21.9 Gastro-esophageal reflux disease without esophagitis
CPT/HCPCS: 74220

== ENCOUNTER 2017-01-19 06:56 | Day surgery (SDC) | payer MEDICARE ==
[2017-01-18 09:16] VITALS: BMI 34.5
[~2017-01-19 06:56] MED LIST changes: -ACETAMINOPHEN TAB 500 MG TAB PO ONE; -DEXAMETHASONE SOD PHOSPHATE 10 MG/ML 1 ML VIAL IV ONE; -HYDROmorphone 1 MG/ML 1 ML SYRINGE IVP PRN; +LACTATED RINGERS 1,000 ML IV SCH; -MELOXICAM 7.5 MG TAB PO ONE; -MIDAZOLAM 2 MG/2 ML VIAL IV PRN; -ONDANSETRON 4 MG/2 ML VIAL IVP ONE; -SCOPOLAMINE 1.5MG/72HR PATCH TRANSDERM ONE; -TRANEXAMIC ACID 1,000 MG in SODIUM CHLORIDE 0.9% 100 ML IVPB ONE; -ceFAZolin 2 GM in SODIUM CHLORIDE 0.9% 100 ML IVPB ONE
[2017-01-19 07:14] VITALS: RESP 18; TEMP 96.1
[2017-01-19] MEDS ORDERED: LACTATED RINGERS 1,000 ML IV ONE (07:19)
[2017-01-19 07:23] LABS: Glucose,Whole Blood 132 mg/dL (75-99)
[2017-01-19] MEDS ORDERED: PROPOFOL 10 MG/ML 20 ML VIAL IV ONE (07:38)
[2017-01-19] MEDS ORDERED: LIDOCAINE 1% INJ 10MG/ML (20 ML MDV) ONE (07:38)
--- NOTE | 2017-01-19 07:42 | P.GSHP ---
History of Present Illness H&P Date: 01/19/17 CHIEF COMPLAINT: GERD HISTORY OF PRESENT ILLNESS: The patient is a 86-year-old male who presents reports gastroesophageal reflux disease. Upper endoscopy was offered for further evaluation and management. PAST MEDICAL HISTORY: Please see list. PAST SURGICAL HISTORY: Please see list. MEDICATIONS: Please see list. ALLERGIES: Please see list. SOCIAL HISTORY: No illicit drug use FAMILY HISTORY: No reports of Crohn disease or ulcerative colitis. REVIEW OF ORGAN SYSTEMS: CONSTITUTIONAL: No reports of fevers or chills. GI: Denies any blood in stools or constipation. PHYSICAL EXAM: VITAL SIGNS: Stable GENERAL: Well-developed and pleasant in no acute distress. HEENT: No scleral icterus. Extraocular movements grossly intact. Moist buccal mucosa. NECK: Supple without lymphadenopathy. CHEST: Unlabored respirations. Equal bilateral excursions. CARDIOVASCULAR: Regular rate and rhythm. Distal 2+ pulses. ABDOMEN: Soft, nondistended. MUSCULOSKELETAL: No clubbing, cyanosis, or edema. ASSESSMENT: 1. Gastroesophageal reflux disease PLAN: 1. Recommend proceeding with an upper endoscopy Past Medical History Past Medical History: Coronary Artery Disease (CAD), Heart Failure, Diabetes Mellitus, GERD/Reflux, Hearing Disorder / Deafness, Hyperlipidemia, Hypertension , Musculoskeletal Disorder, Osteoarthritis (OA), Prostate Disorder, Renal Disease, Thyroid Disorder Additional Past Medical History / Comment(s): ANEMIA, SWELLING IN LOWER EXTREMITIES, ENLARGED PROSTATE. HEARING AIDS PETE., GOUT History of Any Multi-Drug Resistant Organisms: None Reported Past Surgical History: Back Surgery, Heart Catheterization With Stent, Hernia Repair, Joint Replacement, Orthopedic Surgery Additional Past Surgical History / Comment(s): CARPAL TUNNEL, ROTATOR CUFF REPAIR, PETE KNEE REPLACEMENT,rt hip replacement Past Anesthesia/Blood Transfusion Reactions: No Reported Reaction Date of Last Stent Placement:: 2006 Smoking Status: Never smoker - Past Family History Sister(s) Family Medical History: Cancer Brother(s) Family Medical History: Cancer Father Family Medical History: Cancer Additional Family Medical History / Comment(s): . Mother Family Medical History: Congestive Heart Failure (CHF) Medications and Allergies Home Medications Medication Instructions Recorded Confirmed Type Aspirin 81 mg PO W/SUPPER 08/31/13 01/18/17 History Gabapentin 600 mg PO HS 08/31/13 01/18/17 History Gabapentin [Neurontin] 300 mg PO QAM 08/31/13 01/18/17 History Pantoprazole Sodium 40 mg PO DAILY 08/31/13 01/18/17 History Simvastatin [Zocor] 40 mg PO W/SUPPER 08/31/13 01/18/17 History Tamsulosin [Flomax] 0.4 mg PO W/SUPPER 08/31/13 01/18/17 History Furosemide [Lasix] 80 mg PO BID 12/17/13 01/18/17 History Levothyroxine Sodium [Synthroid] 75 mcg PO DAILY@1600 12/17/13 01/18/17 History Allopurinol [Zyloprim] 300 mg PO W/SUPPER 03/10/14 01/18/17 History Donepezil [Aricept] 10 mg PO W/SUPPER 11/13/15 01/18/17 History Epoetin [place] [Procrit] 2,000 unit INJ FR 11/13/15 01/18/17 History Ferrous Sulfate [Iron (65 MG 325 mg PO DAILY 11/13/15 01/18/17 History Elemental)] Isosorbide Mononitrate [Imdur] 120 mg PO QAM 11/13/15 01/18/17 History Multivit-Min/FA/Lycopen/Lutein 1 tab PO DAILY 11/13/15 01/18/17 History [Centrum Silver Tablet] metFORMIN HCL [Glucophage] 850 mg PO BID 10/05/16 01/18/17 History Folic Acid 1 mg PO DAILY 01/18/17 01/18/17 History Methylphenidate HCl [Ritalin] 5 mg PO TID 01/18/17 01/18/17 History Allergies Allergy/AdvReac Type Severity Reaction Status Date / Time baclofen Allergy Severe Unknown Verified 01/18/17 08:26 morphine Allergy Nausea & Verified 01/18/17 08:26 Vomiting sulfamethoxazole Allergy Rash/Hives Verified 01/18/17 08:26 [From Bactrim] trimethoprim [From Bactrim] Allergy Rash/Hives Verified 01/18/17 08:26 cow hair Allergy Unknown Uncoded 01/18/17 08:26 Surgical - Exam Vital Signs Temp Pulse Resp BP Pulse Ox 96.1 F L 77 18 142/74 98 01/19/17 07:10 01/19/17 07:10 01/19/17 07:10 01/19/17 07:10 01/19/17 07:10 Results - Labs Abnormal Lab Results - Last 24 Hours (Table) 01/19/17 Range/Units 07:18 POC Glucose (mg/dL) 132 H (75-99) mg/dL
--- NOTE | 2017-01-19 07:59 | P.PCN ---
Date of Procedure: 01/19/17 Description of Procedure: PREOPERATIVE DIAGNOSIS: Gastroesophageal reflux disease. POSTOPERATIVE DIAGNOSIS: Gastroesophageal reflux disease. Diaphragmatic hiatal hernia without obstruction, type I. Gastric polyps. Duodenitis without bleeding. Erosive esophagitis. OPERATION: Esophagogastroduodenoscopy with removal of tumor by hot snare. Esophagogastroduodenoscopy with biopsies along antrum and distal esophagus. SURGEON: Bere Xie MD ANESTHESIA: MAC. INDICATIONS: The patient is a 86-year-old male who presents with a history of reflux disease. Benefits and risks of the procedure were described. Informed consent was obtained. DESCRIPTION: The patient was brought into the endoscopy suite and laid in the left lateral decubitus position. An Olympus gastroscope was passed along the posterior oropharynx down to the distal esophagus where the squamocolumnar junction was encountered at 33 cm from the incisors. The stomach was entered and no bile reflux was found. Additional findings are listed below. Biopsies with cold forceps were obtained of the antrum. The first through third portion of the duodenum was examined and remarkable for punctate hemorrhage consistent with duodenitis. Retroflexion of the scope confirmed Hill grade 4 lower esophageal valve. The squamocolumnar junction demostrated LA grade C erosive esophagitis. The stomach was desufflated. The patient tolerated the procedure well. FINDINGS: Squamocolumnar junction 33 cm from the incisors. Diaphragmatic hiatus at 38 cm. Hiatal hernia 5 cm, sliding type. Hill grade 4 lower esophageal valve. LA grade C erosive esophagitis, cold biopsies obtained. Active duodenitis. 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 RECOMMENDATIONS: Further recommendations pending results of pathology report. Upper endoscopy as needed. Will benefit from antireflux surgical procedure. Plan - Discharge Summary New Discharge Prescriptions: No Action Pantoprazole Sodium 40 mg PO DAILY Gabapentin [Neurontin] 300 mg PO QAM Gabapentin 600 mg PO HS Aspirin 81 mg PO W/SUPPER Tamsulosin [Flomax] 0.4 mg PO W/SUPPER Simvastatin [Zocor] 40 mg PO W/SUPPER Levothyroxine Sodium [Synthroid] 75 mcg PO DAILY@1600 Furosemide [Lasix] 80 mg PO BID Allopurinol [Zyloprim] 300 mg PO W/SUPPER Donepezil [Aricept] 10 mg PO W/SUPPER Ferrous Sulfate [Iron (65 MG Elemental)] 325 mg PO DAILY Isosorbide Mononitrate [Imdur] 120 mg PO QAM Multivit-Min/FA/Lycopen/Lutein [[place] Silver Tablet] 1 tab PO DAILY Epoetin Garrett [Procrit] 2,000 unit INJ FR metFORMIN HCL [Glucophage] 850 mg PO BID Methylphenidate HCl [Ritalin] 5 mg PO TID Folic Acid 1 mg PO DAILY Discharge Medication List Aspirin 81 mg PO W/SUPPER 08/31/13 [History] Gabapentin 600 mg PO HS 08/31/13 [History] Gabapentin [Neurontin] 300 mg PO QAM 08/31/13 [History] Pantoprazole Sodium 40 mg PO DAILY 08/31/13 [History] Simvastatin [Zocor] 40 mg PO W/SUPPER 08/31/13 [History] Tamsulosin [Flomax] 0.4 mg PO W/SUPPER 08/31/13 [History] Furosemide [Lasix] 80 mg PO BID 12/17/13 [History] Levothyroxine Sodium [Synthroid] 75 mcg PO DAILY@1600 12/17/13 [History] Allopurinol [Zyloprim] 300 mg PO W/SUPPER 03/10/14 [History] Donepezil [Aricept] 10 mg PO W/SUPPER 11/13/15 [History] Epoetin [place] [Procrit] 2,000 unit INJ FR 11/13/15 [History] Ferrous Sulfate [Iron (65 MG Elemental)] 325 mg PO DAILY 11/13/15 [History] Isosorbide Mononitrate [Imdur] 120 mg PO QAM 11/13/15 [History] Multivit-Min/FA/Lycopen/Lutein [[place] Silver Tablet] 1 tab PO DAILY 11/13/15 [ History] metFORMIN HCL [Glucophage] 850 mg PO BID 10/05/16 [History] Folic Acid 1 mg PO DAILY 01/18/17 [History] Methylphenidate HCl [Ritalin] 5 mg PO TID 01/18/17 [History]
[2017-01-19 08:33] VITALS: BP 151/72; PULSE 61
== END 2017-01-19 09:01 | disposition home or self-care (01) ==
LOC: ORWHC2ENDO 06:56
PROVIDERS: ATTEND Surgery Plastic and Reconstructive Surgery
DX: K31.7 Polyp of stomach and duodenum (principal); K21.0 Gastro-esophageal reflux disease with esophagitis; K29.50 Unspecified chronic gastritis without bleeding; K44.9 Diaphragmatic hernia without obstruction or gangrene; K29.80 Duodenitis without bleeding; I25.10 Atherosclerotic heart disease of native coronary artery without angina pectoris; E11.9 Type 2 diabetes mellitus without complications; E78.5 Hyperlipidemia, unspecified; I10 Essential (primary) hypertension; E07.9 Disorder of thyroid, unspecified; M10.9 Gout, unspecified; N40.0 Benign prostatic hyperplasia without lower urinary tract symptoms; D64.9 Anemia, unspecified; Z95.5 Presence of coronary angioplasty implant and graft; Z79.84 Long term (current) use of oral hypoglycemic drugs; Z79.82 Long term (current) use of aspirin; Z79.899 Other long term (current) drug therapy; Z88.5 Allergy status to narcotic agent; Z88.2 Allergy status to sulfonamides; Z88.8 Allergy status to other drugs, medicaments and biological substances
CPT/HCPCS: 43239; 43251; 88305; 88342; J2001; J2704

== ENCOUNTER 2017-05-30 06:31 | Day surgery (SDC) | payer MEDICARE ==
[2017-05-23 12:46] VITALS: BMI 32.9
--- NOTE | 2017-05-29 12:31 | P.GSHP ---
History of Present Illness H&P Date: 05/30/17 CHIEF COMPLAINT: Cholecystitis HISTORY OF PRESENT ILLNESS: The patient is a 86-year-old male who presents with history of epigastric including right upper quadrant abdominal pain. He underwent diagnostic studies for the gallbladder. Separately his clinical picture was consistent with cholecystitis. Now he presents for surgical intervention. PAST MEDICAL HISTORY: Please see list PAST SURGICAL HISTORY: Please see list MEDICATIONS: Please see list ALLERGIES: Denies. SOCIAL HISTORY: No illicit drug use or recent tobacco use FAMILY HISTORY: Pertinent for gallbladder disease REVIEW OF ORGAN SYSTEMS: CONSTITUTIONAL: No reports of fevers or chills. HEENT: Denies any troubles with the vision or hearing. ENDOCRINE: No reports of hypothyroidism. No diabetes. RESPIRATORY: No recent pneumonias. CARDIOVASCULAR: Denies chest pain or palpitations GI: No blood in stools or constipation. MUSCULOSKELETAL: Has occasional joint pain including back pain. NEURO: No seizure disorders or headaches. No recent stroke. PSYCH: No depression or suicidal ideation. HEMATOLOGIC: No personal or family history of DVTs or pulmonary emboli. PHYSICAL EXAM: VITAL SIGNS: Afebrile vital signs stable GENERAL: Well-developed pleasant male in no acute distress. HEENT: No scleral icterus. Extraocular movements grossly intact. Moist buccal mucosa. NECK: Supple without lymphadenopathy. CHEST: Unlabored respirations. Equal bilateral excursions. CARDIOVASCULAR: Irregular rate and rhythm. Distal 2+ pulses. ABDOMEN: Soft, nondistended. Tender along the epigastrium and right upper quadrant. MUSCULOSKELETAL: No clubbing, cyanosis, or edema. NEURO : No focal or lateralizing signs. Cranial nerves II-12 within normal limits. PSYCH: Alert and oriented to person, place and time. ASSESSMENT: 1. Epigastric and right upper quadrant abdominal pain 2. Chronic cholecystitis PLAN: 1. Will need a robotic cholecystectomy possible open. Benefits and risks were described. 2. Heparin for DVT prophylaxis 5000 units. 3. Antibiotic prophylaxis. Past Medical History Past Medical History: Coronary Artery Disease (CAD), Heart Failure, Diabetes Mellitus, GERD/Reflux, Hearing Disorder / Deafness, Hyperlipidemia, Hypertension , Musculoskeletal Disorder, Osteoarthritis (OA), Prostate Disorder, Renal Disease, Thyroid Disorder Additional Past Medical History / Comment(s): ANEMIA; SHORTNESS OF BREATH W/ ACTIVITY. SWELLING IN LOWER EXTREMITIES, VARICOSE VEINS. ENLARGED PROSTATE. GOUT. MULT LGE MOLES, TOM BACK. History of Any Multi-Drug Resistant Organisms: None Reported Past Surgical History: Back Surgery, Heart Catheterization With Stent, Hernia Repair, Joint Replacement, Orthopedic Surgery Additional Past Surgical History / Comment(s): CARPAL TUNNEL, ROTATOR CUFF REPAIR, PETE KNEE REPLACEMENT, has Rods/ CAGE in his back. Right Hip replacement. LAP REDUCTION/REPAIR HIATAL HERNIA 02/25/17. Past Anesthesia/Blood Transfusion Reactions: No Reported Reaction Date of Last Stent Placement:: 2006 Smoking Status: Never smoker - Past Family History Sister(s) Family Medical History: Cancer Brother(s) Family Medical History: Cancer Father Family Medical History: Cancer Additional Family Medical History / Comment(s): . Mother Family Medical History: Congestive Heart Failure (CHF) Medications and Allergies Home Medications Medication Instructions Recorded Confirmed Type Aspirin 81 mg PO W/SUPPER 08/31/13 05/23/17 History Gabapentin 600 mg PO HS 08/31/13 05/23/17 History Gabapentin [Neurontin] 300 mg PO QAM 08/31/13 05/23/17 History Simvastatin [Zocor] 40 mg PO W/SUPPER 08/31/13 05/23/17 History Tamsulosin [Flomax] 0.4 mg PO DAILY 08/31/13 05/23/17 History Furosemide [Lasix] 160 mg PO DAILY 12/17/13 05/23/17 History Levothyroxine Sodium [Synthroid] 75 mcg PO DAILY@1200 12/17/13 05/23/17 History Allopurinol [Zyloprim] 300 mg PO W/SUPPER 03/10/14 05/23/17 History Donepezil [Aricept] 10 mg PO W/SUPPER 11/13/15 05/23/17 History Epoetin Garrett [Procrit] 2,000 unit INJ FR 11/13/15 05/23/17 History Ferrous Sulfate [Iron (65 MG 325 mg PO DAILY 11/13/15 05/23/17 History Elemental)] Isosorbide Mononitrate [Imdur] 120 mg PO QAM 11/13/15 05/23/17 History Multivit-Min/FA/Lycopen/Lutein 1 tab PO DAILY 11/13/15 05/23/17 History [Centrum Silver Tablet] metFORMIN HCL [Glucophage] 850 mg PO BID 10/05/16 05/23/17 History Folic Acid 1 mg PO DAILY 01/18/17 05/23/17 History Acetaminophen [Tylenol Extra 500 mg PO Q4-6H PRN 05/23/17 05/23/17 History Strength] Mag/Aluminum/Sod Bicarb/Alginc 1 each PO BID PRN 05/23/17 05/23/17 History [Gaviscon 80-14.2 mg Tab Chew] Magnesium Oxide [Mag-Ox] 400 mg PO BID 05/23/17 05/23/17 History Terazosin [Hytrin] 5 mg PO PC-SUPPER 05/23/17 05/23/17 History Allergies Allergy/AdvReac Type Severity Reaction Status Date / Time baclofen Allergy Severe Unknown Verified 05/23/17 11:53 morphine Allergy Nausea & Verified 05/23/17 11:53 Vomiting sulfamethoxazole Allergy Rash/Hives Verified 05/23/17 11:53 [From Bactrim] trimethoprim [From Bactrim] Allergy Rash/Hives Verified 05/23/17 11:53 cow hair Allergy Anaphylaxis Uncoded 05/23/17 11:53
[~2017-05-30 06:31] MED LIST changes: +ACETAMINOPHEN IV (For NPO) 1,000 MG in EMPTY BAG 1 BAG IVPB ONE; +DEXAMETHASONE SOD PHOSPHATE 10 MG/ML 1 ML VIAL IV ONE; +HEPARIN SODIUM,PORCINE 5,000 UNIT/ML 1 ML VIAL SQ ONE; +INDOCYANINE GREEN 25 MG VIAL IV STA; -LACTATED RINGERS 1,000 ML IV SCH; +MIDAZOLAM 2 MG/2 ML VIAL IV PRN; +ONDANSETRON 4 MG/2 ML VIAL IVP ONE; +ceFAZolin IN SWFI 2 GM/20 ML SYRINGE IVP ONE; +fentaNYL (PF) 50 MCG/ML 2 ML AMP IV PRN
--- NOTE | 2017-05-30 07:23 | P.HPADDEND ---
H&P Addendum H&P Addendum Date: 05/30/17 No new concerns. Patient reports right upper quadrant epigastric discomfort. Will proceed with cholecystectomy.
[2017-05-30] MEDS ORDERED: LIDOCAINE 1% 20 ML VIAL (10MG/ML) FOR IV START INTRADERMA ONE (07:24)
[2017-05-30] MEDS: LACTATED RINGERS 1,000 ML IV SCH ×2 (07:25→07:53)
[2017-05-30 07:36] LABS: Glucose,Whole Blood 131 mg/dL (75-99)
[2017-05-30 07:44] LABS: Anisocytosis Slight; Basophils % (A) 0 %; Eosinophils # (A) 0.3 k/uL (0-0.7); Eosinophils % (A) 5 %; HCT 34.1 % (39.0-53.0); HGB 10.9 gm/dL (13.0-17.5); Lymphocytes # (A) 1.2 k/uL (1.0-4.8); Lymphocytes % (A) 21 %; MCH 29.2 pg (25.0-35.0); MCHC 31.9 g/dL (31.0-37.0); MCV 91.6 fL (80.0-100.0); Mean Platelet Volume 8.7; Monocytes # (A) 0.4 k/uL (0-1.0); Monocytes % (A) 7 %; Neutrophils # (A) 3.9 k/uL (1.3-7.7); Neutrophils % (A) 66 %; Platelet Count 209 k/uL (150-450); RBC 3.72 m/uL (4.30-5.90); RDW 17.5 % (11.5-15.5); WBC 5.9 k/uL (3.8-10.6)
[2017-05-30 07:53] LABS: Albumin 3.7 g/dL (3.5-5.0); Calcium 9.2 mg/dL (8.4-10.2); Potassium 4.2 mmol/L (3.5-5.1); Total Bilirubin 0.6 mg/dL (0.2-1.3); Total Protein 6.2 g/dL (6.3-8.2)
[2017-05-30] MEDS ORDERED: LIDOCAINE 1% INJ 10MG/ML (20 ML MDV) ONE (07:53)
[2017-05-30] MEDS ORDERED: NEOSTIGMINE 1 MG/ML 10 ML VIAL ONE (07:53)
[2017-05-30] MEDS ORDERED: ACETAMINOPHEN IV (For NPO) 1,000 MG/100 ML VIAL ONE (07:53)
[2017-05-30] MEDS ORDERED: SUCCINYLCHOLINE CHLORIDE 100 MG/5 ML SYR IV ONE (07:53)
[2017-05-30] MEDS ORDERED: INDOCYANINE GREEN 25 MG VIAL IV ONE (07:53)
[2017-05-30] MEDS ORDERED: GLYCOPYRROLATE 0.2 MG/ML 2 ML VIAL ONE (07:53)
[2017-05-30] MEDS ORDERED: PROPOFOL 10 MG/ML 20 ML VIAL IV ONE (07:53)
[2017-05-30] MEDS ORDERED: ROCURONIUM BROMIDE 10 MG/ML 10 ML VIAL IV ONE (07:53)
[2017-05-30] MEDS ORDERED: BUPIVACAINE (PF) 0.25% 30 ML VIAL SQ ONE (08:15)
--- NOTE | 2017-05-30 09:13 | P.OP ---
Date of Procedure: 05/30/17 Description of Procedure: SURGEON: DUANE BOWLING MD MANAGER WEALTH MANAGEMENT: DENNIS CROWLEY PREOPERATIVE DIAGNOSES: 1. Chronic cholecystitis. 2. Family history of gallbladder disease. 3. Hypertensive cardiomyopathy 4. Chronic renal insufficiency due to hypertension, stage III 5. Right upper quadrant abdominal pain. 6. Gastroesophageal reflux disease. 7. Biliary dyskinesia POSTOPERATIVE DIAGNOSES: 1. Chronic cholecystitis. 2. Family history of gallbladder disease. 3. Hypertensive cardiomyopathy 4. Chronic renal insufficiency due to hypertension, stage III 5. Right upper quadrant abdominal pain. 6. Gastroesophageal reflux disease. 7. Biliary dyskinesia 8. Fatty liver disease OPERATION: Robotic-assisted da Devonte Xi laparoscopic cholecystectomy, multiport with FIREFLY ESTIMATED BLOOD LOSS: 5 mL. SPECIMENS REMOVED: Gallbladder. COMPLICATIONS: None. OPERATIVE FINDINGS: 1. Chronic cholecystitis 2. Fatty liver disease without hepatomegaly. 3. 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 4. Gallbladder resected at infundibulum INDICATIONS: The patient is a 86-year-old female who presents with chronic cholelcystitis and biliary dyskinesia. Surgical intervention with a laparoscopic cholecystectomy was described at length including injury to the biliary tree, bleeding, infection, need for further surgery. Informed consent was obtained. Robotic assisted laparoscopic approach was described. Benefits and risks of the procedure including but not limited to bleeding, infection, injury to the biliary tree was described. Informed consent was obtained. DESCRIPTION OF PROCEDURE: Patient was brought to the operating room, placed in supine position. After general induction, the abdomen had been prepped and draped in standard sterile fashion. The robotic da Devonte XI system was primed. After a timeout protocol was performed, the patient had been prepped and draped in standard sterile fashion. The patient was injected with indocyanine green. The robot was docked along the left lateral abdomen. The patient was repositioned in reverse Trendelenburg position. Please note prior to docking of the robot; however, a 5 mm 0 degrees laparoscopic trocar entry was performed along the left upper quadrant. Next, two 8 mm robotic ports were placed along the right upper abdomen. The camera 8-mm port was maintained along the epigastrium. Another 8 mm port was placed along the left upper abdominal wall after exchanging the 5 mm port. Please note that the ports were placed at least 10 to 15 cm away from the target anatomy of the gallbladder. Using a grasper for arm 3, a grasper for arm 2, including hook cautery for arm 1 , the robotic system was docked and primed as described. Instruments were interchanged by the mortgage assistant including hook cautery, Bovie cautery scissors and clip appliers. I had sat at the console. Adhesions were identified along the infundibulum of the gallbladder and addressed using hook cautery. The gallbladder fundus was retracted over the dome of the liver. Initial attention was brought to the infundibulum which was gently retracted in the inferior lateral approach. Anomaly along right hepatic duct with spiral cystic duct was found. Using a grasper, the cystic duct including the cystic artery was carefully skeletonized. FIREFLY was used to identify the cystic artery and cystic structures. Using a clip salesperson hosiery 2 large PLASTIC clips were placed proximally, and 1 clip was placed distally along the cystic duct and then cauterized with the cautery. Gallbladder resected at cystic duct/infundibulum. Again care was taken to avoid any injury to the biliary tree as the common bile duct was clearly visualized during this portion of dissection. Next, the cystic artery was cauterized. Electro-Bovie cautery was used to remove the gallbladder from the hepatic fossa. Hemostasis was checked and found to be adequate. The robot was undocked. I re-scrubbed into the case. Using a 10 mm Endo Catch bag via the left upper quadrant incision, the specimen was removed from the abdominal cavity. All pneumoperitoneum instruments were evacuated from the abdominal cavity. The incisions were reapproximated using 4-0 Monocryl in an interrupted subcuticular fashion. Fascial defect was less than 8 mm in size. Please note along the trocar sites, local anesthetic was placed as a field block prior to insertion of all instruments. Dermabond was applied to the skin. At the end of the procedure needle, sponge, and instrument count had been verified correct by the rn surgical. The patient was transferred to postanesthesia care unit in stable condition. Intraoperative films were shared with the patient's family who were very pleased with the level of care. Console time 26 minutes Plan - Discharge Summary New Discharge Prescriptions: No Action Gabapentin [Neurontin] 300 mg PO QAM Gabapentin 600 mg PO HS Aspirin 81 mg PO W/SUPPER Tamsulosin [Flomax] 0.4 mg PO DAILY Simvastatin [Zocor] 40 mg PO W/SUPPER Levothyroxine Sodium [Synthroid] 75 mcg PO DAILY@1200 Furosemide [Lasix] 160 mg PO DAILY Allopurinol [Zyloprim] 300 mg PO W/SUPPER Donepezil [Aricept] 10 mg PO W/SUPPER Ferrous Sulfate [Iron (65 MG Elemental)] 325 mg PO DAILY Isosorbide Mononitrate [Imdur] 120 mg PO QAM Multivit-Min/FA/Lycopen/Lutein [Centrum Silver Tablet] 1 tab PO DAILY Epoetin Garrett [Procrit] 2,000 unit INJ FR metFORMIN HCL [Glucophage] 850 mg PO BID Folic Acid 1 mg PO DAILY Acetaminophen [Tylenol Extra Strength] 500 mg PO Q4-6H PRN PRN Reason: Pain Terazosin [Hytrin] 5 mg PO PC-SUPPER Magnesium Oxide [Mag-Ox] 400 mg PO BID Mag/Aluminum/Sod Bicarb/Alginc [Gaviscon 80-14.2 mg Tab Chew] 1 each PO BID PRN PRN Reason: GERD Discharge Medication List Aspirin 81 mg PO W/SUPPER 08/31/13 [History] Gabapentin 600 mg PO HS 08/31/13 [History] Gabapentin [Neurontin] 300 mg PO QAM 08/31/13 [History] Simvastatin [Zocor] 40 mg PO W/SUPPER 08/31/13 [History] Tamsulosin [Flomax] 0.4 mg PO DAILY 08/31/13 [History] Furosemide [Lasix] 160 mg PO DAILY 12/17/13 [History] Levothyroxine Sodium [Synthroid] 75 mcg PO DAILY@1200 12/17/13 [History] Allopurinol [Zyloprim] 300 mg PO W/SUPPER 03/10/14 [History] Donepezil [Aricept] 10 mg PO W/SUPPER 11/13/15 [History] Epoetin Garrett [Procrit] 2,000 unit INJ FR 11/13/15 [History] Ferrous Sulfate [Iron (65 MG Elemental)] 325 mg PO DAILY 11/13/15 [History] Isosorbide Mononitrate [Imdur] 120 mg PO QAM 11/13/15 [History] Multivit-Min/FA/Lycopen/Lutein [Centrum Silver Tablet] 1 tab PO DAILY 11/13/15 [ History] metFORMIN HCL [Glucophage] 850 mg PO BID 10/05/16 [History] Folic Acid 1 mg PO DAILY 01/18/17 [History] Acetaminophen [Tylenol Extra Strength] 500 mg PO Q4-6H PRN 05/23/17 [History] Mag/Aluminum/Sod Bicarb/Alginc [Gaviscon 80-14.2 mg Tab Chew] 1 each PO BID PRN 05/23/17 [History] Magnesium Oxide [Mag-Ox] 400 mg PO BID 05/23/17 [History] Terazosin [Hytrin] 5 mg PO PC-SUPPER 05/23/17 [History]
[2017-05-30 09:22] VITALS: TEMP 97
[2017-05-30 09:46] VITALS: RESP 18
[2017-05-30 12:11] VITALS: BP 149/73; PULSE 68
== END 2017-05-30 12:36 | disposition home or self-care (01) ==
LOC: OR 06:31
PROVIDERS: ATTEND Surgery Plastic and Reconstructive Surgery
DX: K81.1 Chronic cholecystitis (principal); Z83.79 Family history of other diseases of the digestive system; E11.22 Type 2 diabetes mellitus with diabetic chronic kidney disease; I13.0 Hypertensive heart and chronic kidney disease with heart failure and stage 1 through stage 4 chronic kidney disease, or unspecified chronic kidney disease; N18.3 Chronic kidney disease, stage 3 (moderate); I50.9 Heart failure, unspecified; I42.9 Cardiomyopathy, unspecified; K82.8 Other specified diseases of gallbladder; K76.0 Fatty (change of) liver, not elsewhere classified; Q44.5 Other congenital malformations of bile ducts; K66.0 Peritoneal adhesions (postprocedural) (postinfection); I25.10 Atherosclerotic heart disease of native coronary artery without angina pectoris; K21.9 Gastro-esophageal reflux disease without esophagitis; H91.90 Unspecified hearing loss, unspecified ear; E78.5 Hyperlipidemia, unspecified; M19.90 Unspecified osteoarthritis, unspecified site; E07.9 Disorder of thyroid, unspecified; D64.9 Anemia, unspecified; N40.0 Benign prostatic hyperplasia without lower urinary tract symptoms; M10.9 Gout, unspecified; Z95.5 Presence of coronary angioplasty implant and graft; Z79.84 Long term (current) use of oral hypoglycemic drugs; Z79.82 Long term (current) use of aspirin; Z79.890 Hormone replacement therapy; Z79.899 Other long term (current) drug therapy; Z88.1 Allergy status to other antibiotic agents; Z88.5 Allergy status to narcotic agent; Z88.2 Allergy status to sulfonamides; Z88.8 Allergy status to other drugs, medicaments and biological substances
CPT/HCPCS: 88304; 80053; 85025; 47562; J1644; J1100; J2710; J2405; J2001; J0131; J0330; J2704; J0690

== ENCOUNTER 2018-04-30 16:07 | Inpatient (IN) | payer MEDICARE ==
[2018-04-30] MEDS ORDERED: SODIUM CHLORIDE 0.9% 500 ML 500 ML IV STA (16:31)
[2018-04-30] MEDS ORDERED: HEPARIN SODIUM,PORCINE 5,000 UNIT/ML 1 ML VIAL IV ONE (16:32)
[2018-04-30] MEDS ORDERED: HEPARIN SODIUM,PORCINE 5,000 UNIT/ML 1 ML VIAL IV PRN (16:32)
--- NOTE | 2018-04-30 16:35 | ED ---
General Adult HPI - General Chief complaint: Shortness of Breath Stated complaint: RU Time Seen by Provider: 04/30/18 16:19 Source: patient Mode of arrival: wheelchair Limitations: no limitations - History of Present Illness Initial comments: Dictation was produced using [employer] dictation software. please excuse any grammatical, word or spelling errors. Chief Complaint: 87-year-old male past medical history coronary artery disease, diabetes, congestive heart failure presents with dyspnea. History of Present Illness: Patient is 87-year-old male presents with chief complaint of dyspnea. Patient states that symptoms have slowly progressed to her they are. He states his symptoms THAT began approximately 3-4 days ago. Patient has history of congestive heart failure, coronary artery disease. Patient also has feels some mild chest tightness that is constant. Denies any exacerbating or remitting factors. No radiation of pain. Patient denies any numbness and paresthesias to the arms or legs. He is accompanied by his daughter who has been monitoring his heart rate she states that he go fast and slow in repetitive episodic fashion. Patient does not have any history of H fibrillation he does not take any anticoagulating medications. Denies any lower extremity pain. The ROS documented in this emergency department record has been reviewed and confirmed by me. Those systems with pertinent positive or negative responses have been documented in the HPI. All other systems are other negative and/or noncontributory. PHYSICAL EXAM: General Impression: Alert and oriented x3, not in acute distress HEENT: Normocephalic atraumatic, extra-ocular movements intact, pupils equal and reactive to light bilaterally, mucous membranes moist. Cardiovascular: Heart regular rate and rhythm, S1&S2 audible, no murmurs, rubs or gallops Chest: Mild wheezing Abdomen: Bowel sounds present, abdomen soft, non-tender, non-distended, no organomegaly Musculoskeletal: Pulses present and equal in all extremities, 2+ pitting edema bilaterally Motor: Power 5/5 bilaterally, no focal deficits noted Neurological: CN II-XII grossly intact, no focal motor or sensory deficits noted Skin: Intact with no visualized rashes Psych: Normal affect and mood ED course: 87-year-old male with chief complaint of dyspnea and chest pressure vital signs upon arrival shows heart rate of 129, worse vital signs within acceptable limits. EKG shows atrial fibrillation with rapid right bundle branch block Laboratory evaluation obtained. CBC unremarkable. Hemoglobin stable. Coag panel unremarkable. Metabolic panel shows elevation in renal markers. He has a troponin elevation of 0.112. BNP of 8000. Urinalysis unremarkable. Patient' s clinical presentation is consistent with new onset atrial fibrillation. At this point there is no clear source of recent onset atrial fibrillation however dehydration is likely the patient given gentle hydration. She given aspirin for elevated troponin which is likely secondary to troponin leak. Patient be admitted he started on heparin. Patient is currently rate controlled no indication for aggressive rate control management at this time. He is given 1 dose of po beta blockers. EKG interpretation: Ventricular rate 117, atrial fibrillation with RVR, QRS 132 , QTc 535. No [place] prolongation, no QTC prolongation, no ST or T-wave changes noted. - Related Data Home Medications Medication Instructions Recorded Confirmed Aspirin 81 mg PO DAILY@1200 08/31/13 04/30/18 Gabapentin [Neurontin] 300 mg PO QA 08/31/13 04/30/18 Simvastatin [Zocor] 40 mg PO HS 08/31/13 04/30/18 Tamsulosin [Flomax] 0.4 mg PO DAILY@1200 08/31/13 04/30/18 Furosemide [Lasix] 40 mg PO BID 12/17/13 04/30/18 Levothyroxine Sodium [Synthroid] 75 mcg PO DAILY@1200 12/17/13 04/30/18 Allopurinol [Zyloprim] 300 mg PO HS 03/10/14 04/30/18 Donepezil [Aricept] 10 mg PO HS 11/13/15 04/30/18 Ferrous Sulfate [Iron (65 MG 325 mg PO BID 11/13/15 04/30/18 Elemental)] Isosorbide Mononitrate [Imdur] 120 mg PO QA 11/13/15 04/30/18 Multivit-Min/FA/Lycopen/Lutein 1 tab PO DAILY@1200 11/13/15 04/30/18 [Centrum Silver Tablet] Folic Acid 1 mg PO HS 01/18/17 04/30/18 Magnesium Oxide [Mag-Ox] 400 mg PO BID 05/23/17 04/30/18 Terazosin [Hytrin] 5 mg PO HS 05/23/17 04/30/18 Epoetin [place] [Procrit] 10,000 unit INJ Q7D PRN 04/30/18 04/30/18 Fluticasone Nasal [place] [Flonase 2 spray EA NOSTRIL DAILY PRN 04/30/18 04/30/18 Nasal [place]] Gabapentin [Neurontin] 600 mg PO HS 04/30/18 04/30/18 Insulin Aspart Protam & Aspart See Protocol SQ AC-BID 04/30/18 04/30/18 [NovoLOG MIX 70-30 Flexpen] Omeprazole [PriLOSEC] 10 mg PO DAILY@1200 04/30/18 04/30/18 Ondansetron [Zofran] 4 mg PO Q8HR PRN 04/30/18 04/30/18 metFORMIN HCL 1,000 mg PO BID 04/30/18 04/30/18 Allergies Allergy/AdvReac Type Severity Reaction Status Date / Time baclofen Allergy Severe Unknown Verified 04/30/18 17:16 morphine Allergy Nausea & Verified 04/30/18 17:16 Vomiting sulfamethoxazole Allergy Rash/Hives Verified 04/30/18 17:16 [From Bactrim] trimethoprim [From Bactrim] Allergy Rash/Hives Verified 04/30/18 17:16 cow hair Allergy Anaphylaxis Uncoded 04/30/18 16:15 Review of Systems ROS Statement: Those systems with pertinent positive or pertinent negative responses have been documented in the HPI. ROS Other: All systems not noted in ROS Statement are negative. Past Medical History Past Medical History: Coronary Artery Disease (CAD), Heart Failure, Diabetes Mellitus, GERD/Reflux, Hearing Disorder / Deafness, Hyperlipidemia, Hypertension , Musculoskeletal Disorder, Osteoarthritis (OA), Prostate Disorder, Renal Disease, Thyroid Disorder Additional Past Medical History / Comment(s): ANEMIA; SHORTNESS OF BREATH W/ ACTIVITY. SWELLING IN LOWER EXTREMITIES, VARICOSE VEINS. ENLARGED PROSTATE. GOUT. MULT LGE MOLES, TOM BACK. History of Any Multi-Drug Resistant Organisms: None Reported Past Surgical History: Back Surgery, Heart Catheterization With Stent, Hernia Repair, Joint Replacement, Orthopedic Surgery Additional Past Surgical History / Comment(s): CARPAL TUNNEL, ROTATOR CUFF REPAIR, PETE KNEE REPLACEMENT, has Rods/ CAGE in his back. Right Hip replacement. LAP REDUCTION/REPAIR HIATAL HERNIA 02/25/17. Past Anesthesia/Blood Transfusion Reactions: No Reported Reaction Date of Last Stent Placement:: 2006 Past Psychological History: Anxiety, Depression Smoking Status: Never smoker - Past Family History Sister(s) Family Medical History: Cancer Brother(s) Family Medical History: Cancer Father Family Medical History: Cancer Additional Family Medical History / Comment(s): . Mother Family Medical History: Congestive Heart Failure (CHF) General Exam Limitations: no limitations Course Vital Signs 04/30/18 04/30/18 04/30/18 16:12 16:27 16:32 Temperature 98.2 F Pulse Rate 129 H 118 H Respiratory 22 141 H Rate Blood Pressure 135/88 O2 Sat by Pulse 98 Oximetry 04/30/18 04/30/18 04/30/18 17:00 17:30 18:00 Temperature Pulse Rate 124 H 124 H 99 Respiratory Rate Blood Pressure 110/88 111/96 125/79 O2 Sat by Pulse 99 100 Oximetry 04/30/18 04/30/18 18:26 18:27 Temperature Pulse Rate 99 Respiratory 18 18 Rate Blood Pressure 125/79 O2 Sat by Pulse 100 Oximetry Medical Decision Making - Lab Data Result diagrams: 04/30/18 17:01 04/30/18 17:01 Lab Results 04/30/18 04/30/18 04/30/18 Range/Units 17:01 17:01 17:01 WBC 7.5 (3.8-10.6) k/uL RBC 3.17 L (4.30-5.90) m/uL Hgb 9.8 L (13.0-17.5) gm/dL Hct 30.2 L (39.0-53.0) % MCV 95.2 (80.0-100.0) fL MCH 30.7 (25.0-35.0) pg MCHC 32.3 (31.0-37.0) g/dL RDW 18.4 H (11.5-15.5) % Plt Count 213 (150-450) k/uL Neutrophils % 77 % Lymphocytes % 14 % Monocytes % 5 % Eosinophils % 2 % Basophils % 0 % Neutrophils # 5.8 (1.3-7.7) k/uL Lymphocytes # 1.1 (1.0-4.8) k/uL Monocytes # 0.4 (0-1.0) k/uL Eosinophils # 0.2 (0-0.7) k/uL Basophils # 0.0 (0-0.2) k/uL Anisocytosis Slight Macrocytosis Slight PT (9.0-12.0) sec INR (<1.2) APTT (22.0-30.0) sec Sodium 137 (137-145) mmol/L Potassium 4.7 (3.5-5.1) mmol/L Chloride 104 (98-107) mmol/L Carbon Dioxide 25 (22-30) mmol/L Anion Gap 8 mmol/L BUN 50 H (9-20) mg/dL Creatinine 1.70 H (0.66-1.25) mg/dL Est GFR (CKD-EPI)AfAm 41 (>60 ml/min/1.73 sqM) Est GFR (CKD-EPI)NonAf 35 (>60 ml/min/1.73 sqM) Glucose 188 H (74-99) mg/dL POC Glucose (mg/dL) (75-99) mg/dL POC Glu Computer Technologist ID Calcium 9.1 (8.4-10.2) mg/dL Magnesium 2.2 (1.6-2.3) mg/dL Total Bilirubin 0.5 (0.2-1.3) mg/dL AST 29 (17-59) U/L ALT 33 (21-72) U/L Alkaline Phosphatase 83 (38-126) U/L Total Creatine Kinase 42 L (55-170) U/L CK-MB (CK-2) 1.8 (0.0-2.4) ng/mL CK-MB (CK-2) Rel Index 4.3 Troponin I 0.112 H* (0.000-0.034) ng/mL NT-Pro-B Natriuret Pep pg/mL Total Protein 5.5 L (6.3-8.2) g/dL Albumin 3.1 L (3.5-5.0) g/dL TSH 1.600 (0.465-4.680) mIU/L Urine Color Urine Appearance (Clear) Urine pH (5.0-8.0) Ur Specific [place] (1.001-1.035) Urine Protein (Negative) Urine Glucose (UA) (Negative) Urine Ketones (Negative) Urine Blood (Negative) Urine Nitrite (Negative) Urine Bilirubin (Negative) Urine Urobilinogen (<2.0) mg/dL Ur Leukocyte Esterase (Negative) 04/30/18 04/30/18 04/30/18 Range/Units 17:01 17:01 17:47 WBC (3.8-10.6) k/uL RBC (4.30-5.90) m/uL Hgb (13.0-17.5) gm/dL Hct (39.0-53.0) % MCV (80.0-100.0) fL MCH (25.0-35.0) pg MCHC (31.0-37.0) g/dL RDW (11.5-15.5) % Plt Count (150-450) k/uL Neutrophils % % Lymphocytes % % Monocytes % % Eosinophils % % Basophils % % Neutrophils # (1.3-7.7) k/uL Lymphocytes # (1.0-4.8) k/uL Monocytes # (0-1.0) k/uL Eosinophils # (0-0.7) k/uL Basophils # (0-0.2) k/uL Anisocytosis Macrocytosis PT 10.3 (9.0-12.0) sec INR 1.0 (<1.2) APTT 23.2 (22.0-30.0) sec Sodium (137-145) mmol/L Potassium (3.5-5.1) mmol/L Chloride (98-107) mmol/L Carbon Dioxide (22-30) mmol/L Anion Gap mmol/L BUN (9-20) mg/dL Creatinine (0.66-1.25) mg/dL Est GFR (CKD-EPI)AfAm (>60 ml/min/1.73 sqM) Est GFR (CKD-EPI)NonAf (>60 ml/min/1.73 sqM) Glucose (74-99) mg/dL POC Glucose (mg/dL) 193 H (75-99) mg/dL POC Glu Computer Technologist ID Kegler, Carmelina Calcium (8.4-10.2) mg/dL Magnesium (1.6-2.3) mg/dL Total Bilirubin (0.2-1.3) mg/dL AST (17-59) U/L ALT (21-72) U/L Alkaline Phosphatase (38-126) U/L Total Creatine Kinase (55-170) U/L CK-MB (CK-2) (0.0-2.4) ng/mL CK-MB (CK-2) Rel Index Troponin I (0.000-0.034) ng/mL NT-Pro-B Natriuret Pep 8160 pg/mL Total Protein (6.3-8.2) g/dL Albumin (3.5-5.0) g/dL TSH (0.465-4.680) mIU/L Urine Color Urine Appearance (Clear) Urine pH (5.0-8.0) Ur Specific [place] (1.001-1.035) Urine Protein (Negative) Urine Glucose (UA) (Negative) Urine Ketones (Negative) Urine Blood (Negative) Urine Nitrite (Negative) Urine Bilirubin (Negative) Urine Urobilinogen (<2.0) mg/dL Ur Leukocyte Esterase (Negative) 04/30/18 Range/Units 19:03 WBC (3.8-10.6) k/uL RBC (4.30-5.90) m/uL Hgb (13.0-17.5) gm/dL Hct (39.0-53.0) % MCV (80.0-100.0) fL MCH (25.0-35.0) pg MCHC (31.0-37.0) g/dL RDW (11.5-15.5) % Plt Count (150-450) k/uL Neutrophils % % Lymphocytes % % Monocytes % % Eosinophils % % Basophils % % Neutrophils # (1.3-7.7) k/uL Lymphocytes # (1.0-4.8) k/uL Monocytes # (0-1.0) k/uL Eosinophils # (0-0.7) k/uL Basophils # (0-0.2) k/uL Anisocytosis Macrocytosis PT (9.0-12.0) sec INR (<1.2) APTT (22.0-30.0) sec Sodium (137-145) mmol/L Potassium (3.5-5.1) mmol/L Chloride (98-107) mmol/L Carbon Dioxide (22-30) mmol/L Anion Gap mmol/L BUN (9-20) mg/dL Creatinine (0.66-1.25) mg/dL Est GFR (CKD-EPI)AfAm (>60 ml/min/1.73 sqM) Est GFR (CKD-EPI)NonAf (>60 ml/min/1.73 sqM) Glucose (74-99) mg/dL POC Glucose (mg/dL) (75-99) mg/dL POC Glu Computer Technologist ID Calcium (8.4-10.2) mg/dL Magnesium (1.6-2.3) mg/dL Total Bilirubin (0.2-1.3) mg/dL AST (17-59) U/L ALT (21-72) U/L Alkaline Phosphatase (38-126) U/L Total Creatine Kinase (55-170) U/L CK-MB (CK-2) (0.0-2.4) ng/mL CK-MB (CK-2) Rel Index Troponin I (0.000-0.034) ng/mL NT-Pro-B Natriuret Pep pg/mL Total Protein (6.3-8.2) g/dL Albumin (3.5-5.0) g/dL TSH (0.465-4.680) mIU/L Urine Color Yellow Urine Appearance Clear (Clear) Urine pH 6.5 (5.0-8.0) Ur Specific [place] 1.010 (1.001-1.035) Urine Protein Trace H (Negative) Urine Glucose (UA) Negative (Negative) Urine Ketones Negative (Negative) Urine Blood Negative (Negative) Urine Nitrite Negative (Negative) Urine Bilirubin Negative (Negative) Urine Urobilinogen <2.0 (<2.0) mg/dL Ur Leukocyte Esterase Negative (Negative) Disposition Clinical Impression: New onset atrial fibrillation, Congestive heart failure Disposition: ADMITTED IP TO THIS [facility] Condition: Fair Referrals: Mor Lara MD [Primary Care Provider] - 1-2 days Decision Time: 19:53
[2018-04-30] MEDS ORDERED: HEPARIN SOD,PORK IN 0.45% NACL 25,000 UNIT in 0.45% NACL 1 250ML.BAG IV SCH (16:45)
[2018-04-30 17:21] LABS: Anisocytosis Slight; Basophils % (A) 0 %; Eosinophils # (A) 0.2 k/uL (0-0.7); Eosinophils % (A) 2 %; HCT 30.2 % (39.0-53.0); HGB 9.8 gm/dL (13.0-17.5); Lymphocytes # (A) 1.1 k/uL (1.0-4.8); Lymphocytes % (A) 14 %; MCH 30.7 pg (25.0-35.0); MCHC 32.3 g/dL (31.0-37.0); MCV 95.2 fL (80.0-100.0); Macrocytosis Slight; Mean Platelet Volume 8.7; Monocytes # (A) 0.4 k/uL (0-1.0); Monocytes % (A) 5 %; Neutrophils # (A) 5.8 k/uL (1.3-7.7); Neutrophils % (A) 77 %; Platelet Count 213 k/uL (150-450); RBC 3.17 m/uL (4.30-5.90); RDW 18.4 % (11.5-15.5); WBC 7.5 k/uL (3.8-10.6)
[2018-04-30 17:35] LABS: Partial Thromboplastin Time 23.2 sec (22.0-30.0); Prothrombin Time 10.3 sec (9.0-12.0)
[2018-04-30 17:37] LABS: Albumin 3.1 g/dL (3.5-5.0); Calcium 9.1 mg/dL (8.4-10.2); Magnesium 2.2 mg/dL (1.6-2.3); Potassium 4.7 mmol/L (3.5-5.1); Total Bilirubin 0.5 mg/dL (0.2-1.3); Total Protein 5.5 g/dL (6.3-8.2)
[2018-04-30 17:50] LABS: Glucose,Whole Blood 193 mg/dL (75-99)
[2018-04-30 17:53] LABS: Creatine Kinase MB 1.8 ng/mL (0.0-2.4)
[2018-04-30 17:56] LABS: Troponin I 0.112 ng/mL (0.000-0.034)
[2018-04-30] MEDS ORDERED: ASPIRIN 81 MG PO STA (18:02)
[2018-04-30] MEDS: ASPIRIN 81 MG PO STA ×2 (18:19→18:25)
--- NOTE | 2018-04-30 19:07 | XR ---
EXAMINATION TYPE: XR chest 2V DATE OF EXAM: 04/30/2018 COMPARISON: 02/29/2016 HISTORY: Dysrhythmia TECHNIQUE: Frontal and lateral views of the chest are obtained. FINDINGS: There is no heart failure nor confluent pneumonic infiltrate. There is some linear density at the left lung base. There is slight elevated left diaphragm. There is coarsening of the interstit ial markings. There are chest leads. I see no definite pleural effusion. Bony thorax is intact. IMPRESSION: Mild pulmonary fibrosis. Minimal scarring and atelectasis at the left lung base increase d compared to old exam.
[2018-04-30 19:18] LABS: Appearance,Urine Clear (Clear); Bilirubin,Urine Negative (Negative); Blood,Urine Negative (Negative); Color,Urine Yellow; Glucose,Urine (UA) Negative (Negative); Ketones,Urine Negative (Negative); Leukocyte Esterase,Urine Negative (Negative); Nitrite,Urine Negative (Negative); PH, Urine 6.5 (5.0-8.0); Protein,Urine Trace (Negative); Urobilinogen,Urine <2.0 mg/dL (<2.0)
[2018-04-30] MEDS ORDERED: METOPROLOL TARTRATE 25 MG TAB PO STA (19:53)
[2018-04-30] MEDS ORDERED: NALOXONE 0.4 MG/ML 1 ML VIAL IV PRN (19:54)
[2018-04-30 21:35] LABS: Glucose,Whole Blood 235 mg/dL (75-99)
--- NOTE | 2018-04-30 21:45 | P.HPIM ---
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 who presents with dyspnea of one day duration , associated with some chest tightness ,central non radiating, also felt as dull at times as per daughter at bed side, which is mild pain and resolved now . pt gave history of common cold about 2-3 weeks ago when he was in [place]. he visited his pcp for his common cold last week who gave him nebulizor treatment and prednisone pack , and lowered his regular dose of lasix 80 mg BID to 40 mg BID because he was dehydrated as per family , his sugar was fluctuating between 100 and 500 , he has worening in his leg swelling on both sides he denies dizziness, syncope , no change in urine or bowel habits or fever. pt has chronic loose stool for one year since he had his gall bladder removed about one year ago on adission he was found to have new onset a fib with RVR, pt was started on heparin drip by ED team heart rate was 131 ,came down to 92, CBC and BMP were unremarkable , creatinine 1.7 which is close to his baseline. troponin is mildly elevated, UA is not suspicious for infection . EKG: A fib rate 117, CXR: mild pulmonary fibrosis. Review of Systems CONSTITUTIONAL: No fever, no malaise, no fatigue. HEENT: No recent visual problems or hearing problems. Denied any sore throat. CARDIOVASCULAR: No orthopnea, PND, no palpitations, no syncope. PULMONARY: No shortness of breath, no cough, no hemoptysis. GASTROINTESTINAL: No diarrhea, no nausea, no vomiting, no abdominal pain. Normoactive bowel sounds. NEUROLOGICAL: No headaches, no weakness, no numbness. HEMATOLOGICAL: Denies any bleeding or petechiae. GENITOURINARY: Denies any burning micturition, frequency, or urgency. MUSCULOSKELETAL/RHEUMATOLOGICAL: Denies any joint pain, swelling, or any muscle pain. ENDOCRINE: Denies any polyuria or polydipsia. Past Medical History Past Medical History: Coronary Artery Disease (CAD), Heart Failure, Diabetes Mellitus, GERD/Reflux, Hearing Disorder / Deafness, Hyperlipidemia, Hypertension , Musculoskeletal Disorder, Osteoarthritis (OA), Prostate Disorder, Renal Disease, Thyroid Disorder Additional Past Medical History / Comment(s): ANEMIA; SHORTNESS OF BREATH W/ ACTIVITY. SWELLING IN LOWER EXTREMITIES, VARICOSE VEINS. ENLARGED PROSTATE. GOUT. MULT LGE MOLES, TOM BACK. family states stage 3 kidney disease History of Any Multi-Drug Resistant Organisms: None Reported Past Surgical History: Back Surgery, Heart Catheterization With Stent, Hernia Repair, Joint Replacement, Orthopedic Surgery Additional Past Surgical History / Comment(s): CARPAL TUNNEL, ROTATOR CUFF REPAIR, PETE KNEE REPLACEMENT, has Rods/ CAGE in his back. Right Hip replacement. LAP REDUCTION/REPAIR HIATAL HERNIA 02/25/17. Past Anesthesia/Blood Transfusion Reactions: No Reported Reaction Date of Last Stent Placement:: 2006 Past Psychological History: Anxiety, Depression Additional Psychological History / Comment(s): MILD Smoking Status: Never smoker Past Alcohol Use History: Rare Past Drug Use History: None Reported - Past Family History Sister(s) Family Medical History: Cancer Brother(s) Family Medical History: Cancer Father Family Medical History: Cancer Additional Family Medical History / Comment(s): . Mother Family Medical History: Congestive Heart Failure (CHF) Medications and Allergies Home Medications Medication Instructions Recorded Confirmed Type Aspirin 81 mg PO DAILY@1200 08/31/13 04/30/18 History Gabapentin [Neurontin] 300 mg PO DAILY 08/31/13 04/30/18 History Simvastatin [Zocor] 40 mg PO 1200 08/31/13 04/30/18 History Tamsulosin [Flomax] 0.4 mg PO DAILY@1200 08/31/13 04/30/18 History Furosemide [Lasix] 40 mg PO BID 12/17/13 04/30/18 History Levothyroxine Sodium [Synthroid] 75 mcg PO DAILY@1200 12/17/13 04/30/18 History Allopurinol [Zyloprim] 300 mg PO HS 03/10/14 04/30/18 History Donepezil [Aricept] 10 mg PO HS 11/13/15 04/30/18 History Ferrous Sulfate [Iron (65 MG 325 mg PO BID 11/13/15 04/30/18 History Elemental)] Isosorbide Mononitrate [Imdur] 120 mg PO DAILY 11/13/15 04/30/18 History Multivit-Min/FA/Lycopen/Lutein 1 tab PO DAILY 11/13/15 04/30/18 History [Centrum Silver Tablet] Folic Acid 1 mg PO HS 01/18/17 04/30/18 History Magnesium Oxide [Mag-Ox] 400 mg PO BID 05/23/17 04/30/18 History Terazosin [Hytrin] 5 mg PO HS 05/23/17 04/30/18 History Epoetin Garrett [Procrit] 10,000 unit INJ Q7D PRN 04/30/18 04/30/18 History Fluticasone Nasal [place] [Flonase 2 spray EA NOSTRIL DAILY PRN 04/30/18 04/30/18 History Nasal [place]] Gabapentin [Neurontin] 600 mg PO HS 04/30/18 04/30/18 History Insulin Aspart Protam & Aspart See Protocol SQ AC-BID 04/30/18 04/30/18 History [NovoLOG MIX 70-30 Flexpen] Omeprazole [PriLOSEC] 10 mg PO DAILY@1200 04/30/18 04/30/18 History Ondansetron [Zofran] 4 mg PO Q8HR PRN 04/30/18 04/30/18 History metFORMIN HCL 1,000 mg PO BID 04/30/18 04/30/18 History Allergies Allergy/AdvReac Type Severity Reaction Status Date / Time baclofen Allergy Severe Unknown Verified 04/30/18 17:16 morphine Allergy Nausea & Verified 04/30/18 17:16 Vomiting sulfamethoxazole Allergy Rash/Hives Verified 04/30/18 17:16 [From Bactrim] trimethoprim [From Bactrim] Allergy Rash/Hives Verified 04/30/18 17:16 cow hair Allergy Anaphylaxis Uncoded 04/30/18 16:15 Physical Exam Vitals: Vital Signs Temp Pulse Pulse Resp BP BP Pulse Ox 04/30/18 20:09 93 20 119/108 99 04/30/18 20:06 97.6 F 131 H 18 123/79 98 04/30/18 18:27 18 04/30/18 18:26 99 18 125/79 100 04/30/18 18:00 99 125/79 100 04/30/18 17:30 124 H 111/96 99 04/30/18 17:00 124 H 110/88 04/30/18 16:32 118 H 04/30/18 16:27 141 H 04/30/18 16:12 98.2 F 129 H 22 135/88 98 Intake and Output 04/30/18 04/30/18 04/30/18 06:59 14:59 22:59 Intake Total 40 Balance 40 Intake: Intake, IV Titration 40 Amount Sodium Chloride 0.9% 1, 40 000 ml @ 20 mls/hr IV . Q24H [facility] Rx#:[id number] Other: Weight 83.007 kg GENERAL: The patient is alert and oriented x3, not in any acute distress. Well developed, well nourished. HEENT: Pupils are round and equally reacting to light. EOMI. No scleral icterus. No conjunctival pallor. Normocephalic, atraumatic. No pharyngeal erythema. No thyromegaly. CARDIOVASCULAR: S1 and S2 present. No murmurs, rubs, or gallops. PULMONARY: Chest is clear to auscultation, no wheezing or crackles. ABDOMEN: Soft, nontender, nondistended, normoactive bowel sounds. No palpable organomegaly. MUSCULOSKELETAL: No joint swelling or deformity. EXTREMITIES: No cyanosis, clubbing, or pedal edema. NEUROLOGICAL: Gross neurological examination did not reveal any focal deficits. SKIN: No rashes. Results CBC & Chem 7: 04/30/18 17:01 04/30/18 17: Labs: Abnormal Lab Results - Last 24 Hours (Table) 04/30/18 04/30/18 04/30/18 Range/Units 17:01 17:01 17:01 RBC 3.17 L (4.30-5.90) m/uL Hgb 9.8 L (13.0-17.5) gm/dL Hct 30.2 L (39.0-53.0) % RDW 18.4 H (11.5-15.5) % BUN 50 H (9-20) mg/dL Creatinine 1.70 H (0.66-1.25) mg/dL Glucose 188 H (74-99) mg/dL POC Glucose (mg/dL) (75-99) mg/dL Total Creatine Kinase 42 L (55-170) U/L Troponin I 0.112 H* (0.000-0.034) ng/mL Total Protein 5.5 L (6.3-8.2) g/dL Albumin 3.1 L (3.5-5.0) g/dL Urine Protein (Negative) 04/30/18 04/30/18 Range/Units 17:47 19:03 RBC (4.30-5.90) m/uL Hgb (13.0-17.5) gm/dL Hct (39.0-53.0) % RDW (11.5-15.5) % BUN (9-20) mg/dL Creatinine (0.66-1.25) mg/dL Glucose (74-99) mg/dL POC Glucose (mg/dL) 193 H (75-99) mg/dL Total Creatine Kinase (55-170) U/L Troponin I (0.000-0.034) ng/mL Total Protein (6.3-8.2) g/dL Albumin (3.5-5.0) g/dL Urine Protein Trace H (Negative) Thrombosis Risk Factor Assmnt - Choose All That Apply Any of the Below Risk Factors Present?: Yes Each Factor Represents 1 point: Obesity (BMI >25) Each Risk Factor Represents 3 Points: Age 75 years or older Other congenital or acquired thrombophilia - If yes, enter type in comment: No Thrombosis Risk Factor Assessment Total Risk Factor Score: 4 Thrombosis Risk Factor Assessment Level: Moderate Risk Assessment and Plan Assessment: a fib with RVR present on admission , new onset upper resp infection , recent h/o congestvie heart failure history of coronary artery disease hypertension hyperlipidemia Diabetes Mellitus , type II Chronic kidney disease , stage III hypothyroidism hearing difficulty Plan: this is a pleasant 87 yo M , who present with new onset a fib with RVR, continue with diuretic , call cardiology consult , hold metformin and start levemir , check Hb A1c, c/w heparin drip, aspirin and metoprolol . Labs and medication were reviewed.. Continue same treatment. Continue with symptomatic treatment. Resume home medication. Monitor lytes and vitals. DVT and GI prophylaxis. Further recommendations of the clinical course of the patient DVT prophylaxis: Subcutaneous heparin GI Prophylaxis: Pepcid PT/OT: Pending Prognosis is guarded
[2018-04-30] MEDS: ATORVASTATIN 40 MG TAB PO SCH (21:54)
[2018-04-30] MEDS: FERROUS SULFATE 325 MG TAB PO SCH (21:54)
[2018-04-30] MEDS: DONEPEZIL 10 MG TAB PO SCH (21:54)
[2018-04-30] MEDS: FOLIC ACID 1 MG TAB PO SCH (21:54)
[2018-04-30] MEDS: GABAPENTIN 300 MG CAP PO SCH (21:54)
[2018-04-30] MEDS: FUROSEMIDE 80 MG TAB PO SCH (21:54)
[2018-04-30] MEDS: ALLOPURINOL 100 MG TAB PO SCH (21:55)
[2018-04-30] MEDS: DOXAZOSIN 4 MG TAB PO SCH (21:55)
[2018-04-30] MEDS: SODIUM CHLORIDE 0.9% 1,000 ML IV SCH (21:58)
[2018-04-30] MEDS: INSULIN DETEMIR (LEVEMIR) 100 UNIT/ML SYR SQ SCH (22:03)
[2018-05-01] MEDS: ALPRAZolam 0.5 MG TAB PO PRN ×2 (01:03→23:34)
[2018-05-01] MEDS: INSULIN ASPART (NovoLOG) 100 UNIT/ML VIAL SQ SCH ×4 (06:44→21:22)
[2018-05-01 06:46] LABS: Glucose,Whole Blood 147 mg/dL (75-99)
[2018-05-01 06:46] LABS: Glucose,Whole Blood 146 mg/dL (75-99)
[2018-05-01 06:54] LABS: Anisocytosis Slight; Basophils % (A) 0 %; Eosinophils # (A) 0.2 k/uL (0-0.7); Eosinophils % (A) 3 %; HCT 28.7 % (39.0-53.0); HGB 9.5 gm/dL (13.0-17.5); Lymphocytes # (A) 1.1 k/uL (1.0-4.8); Lymphocytes % (A) 16 %; MCH 31.9 pg (25.0-35.0); MCV 96.6 fL (80.0-100.0); Macrocytosis Slight; Mean Platelet Volume 7.6; Monocytes # (A) 0.5 k/uL (0-1.0); Monocytes % (A) 6 %; Neutrophils # (A) 5.1 k/uL (1.3-7.7); Neutrophils % (A) 73 %; Platelet Count 203 k/uL (150-450); RBC 2.97 m/uL (4.30-5.90); RDW 19.1 % (11.5-15.5)
[2018-05-01 07:38] LABS: Calcium 8.9 mg/dL (8.4-10.2)
[2018-05-01] MEDS ORDERED: PANTOPRAZOLE 40 MG/10 ML VIAL IV SCH (09:00)
[2018-05-01] MEDS ORDERED: DILTIAZEM ORAL 30 MG TAB PO SCH (09:00)
[2018-05-01 09:51] LABS: Glucose,Whole Blood 150 mg/dL (75-99)
--- NOTE | 2018-05-01 11:07 | P.CRDCN ---
History of Present Illness Consult date: 05/01/18 Requesting physician: Quang E Sheet Consult reason: chest pain Chief complaint: Chest tightness and shortness of breath History of present illness: This is an 87-year-old gentleman who follows with Dr. Cates in the office. He has a known history of coronary artery disease with prior stent placement, hypertension, chronic persistent atrial fibrillation, diabetes, hyperlipidemia, he states he was taken off all blood pressure medications about 45 years ago, hypothyroidism, chronic kidney disease, prostate disorder, who presents to the hospital on this admission with symptoms of chest tightness and discomfort with associated shortness of breath, one day duration. Approximately 3 weeks ago he was diagnosed with influenza while he was in [place], he was treated with nebulizer and a Medrol Dosepak. They also decrease his home dose of Lasix in half from 80 twice a day to 40 twice a day. Chest x-ray on admission here showed mild pulmonary fibrosis with minimal scarring and atelectasis at the left lung base. EKG on admission here showed atrial fibrillation with a moderately rapid ventricular response, occasional PVC and nonspecific ST-T wave changes, right bundle branch block pattern. Blood pressure on arrival here 134/80 with a heart rate in the 120s, 98% on room air, temperature 98.2. Blood pressure this morning 130/80 with a heart rate in the 60s, 99% on 2 L of oxygen. White blood cell count 7.0, hemoglobin 9.5, platelet count 203. Sodium 139, potassium 4.0, BUN 50 on admission and creatinine 1.7, 52 and 1.6 this morning. Magnesium level 2.2. Troponin 0.112, BNP level 8160, TSH 1.6. At the time of my examination this morning, the patient is currently chest pain-free. Breathing overall is stable. Past Medical History Past Medical History: Coronary Artery Disease (CAD), Heart Failure, Diabetes Mellitus, GERD/Reflux, Hearing Disorder / Deafness, Hyperlipidemia, Hypertension , Musculoskeletal Disorder, Osteoarthritis (OA), Prostate Disorder, Renal Disease, Thyroid Disorder Additional Past Medical History / Comment(s): ANEMIA; SHORTNESS OF BREATH W/ ACTIVITY. SWELLING IN LOWER EXTREMITIES, VARICOSE VEINS. ENLARGED PROSTATE. GOUT. MULT LGE MOLES, TOM BACK. family states stage 3 kidney disease History of Any Multi-Drug Resistant Organisms: None Reported Past Surgical History: Back Surgery, Heart Catheterization With Stent, Hernia Repair, Joint Replacement, Orthopedic Surgery Additional Past Surgical History / Comment(s): CARPAL TUNNEL, ROTATOR CUFF REPAIR, PETE KNEE REPLACEMENT, has Rods/ CAGE in his back. Right Hip replacement. LAP REDUCTION/REPAIR HIATAL HERNIA 02/25/17. Past Anesthesia/Blood Transfusion Reactions: No Reported Reaction Date of Last Stent Placement:: 2006 Past Psychological History: Anxiety, Depression Additional Psychological History / Comment(s): MILD Smoking Status: Never smoker Past Alcohol Use History: Rare Past Drug Use History: None Reported - Past Family History Sister(s) Family Medical History: Cancer Brother(s) Family Medical History: Cancer Father Family Medical History: Cancer Additional Family Medical History / Comment(s): . Mother Family Medical History: Congestive Heart Failure (CHF) Medications and Allergies Home Medications Medication Instructions Recorded Confirmed Type Aspirin 81 mg PO DAILY@1200 08/31/13 04/30/18 History Gabapentin [Neurontin] 300 mg PO DAILY 08/31/13 04/30/18 History Simvastatin [Zocor] 40 mg PO 1200 08/31/13 04/30/18 History Tamsulosin [Flomax] 0.4 mg PO DAILY@1200 08/31/13 04/30/18 History Furosemide [Lasix] 40 mg PO BID 12/17/13 04/30/18 History Levothyroxine Sodium [Synthroid] 75 mcg PO DAILY@1200 12/17/13 04/30/18 History Allopurinol [Zyloprim] 300 mg PO HS 03/10/14 04/30/18 History Donepezil [Aricept] 10 mg PO HS 11/13/15 04/30/18 History Ferrous Sulfate [Iron (65 MG 325 mg PO BID 11/13/15 04/30/18 History Elemental)] Isosorbide Mononitrate [Imdur] 120 mg PO DAILY 11/13/15 04/30/18 History Multivit-Min/FA/Lycopen/Lutein 1 tab PO DAILY 11/13/15 04/30/18 History [Centrum Silver Tablet] Folic Acid 1 mg PO HS 01/18/17 04/30/18 History Magnesium Oxide [Mag-Ox] 400 mg PO BID 05/23/17 04/30/18 History Terazosin [Hytrin] 5 mg PO HS 05/23/17 04/30/18 History Epoetin [place] [Procrit] 10,000 unit INJ Q7D PRN 04/30/18 04/30/18 History Fluticasone Nasal [place] [Flonase 2 spray EA NOSTRIL DAILY PRN 04/30/18 04/30/18 History Nasal [place]] Gabapentin [Neurontin] 600 mg PO HS 04/30/18 04/30/18 History Insulin Aspart Protam & Aspart See Protocol SQ AC-BID 04/30/18 04/30/18 History [NovoLOG MIX 70-30 Flexpen] Omeprazole [PriLOSEC] 10 mg PO DAILY@1200 04/30/18 04/30/18 History Ondansetron [Zofran] 4 mg PO Q8HR PRN 04/30/18 04/30/18 History metFORMIN HCL 1,000 mg PO BID 04/30/18 04/30/18 History Allergies Allergy/AdvReac Type Severity Reaction Status Date / Time baclofen Allergy Severe Unknown Verified 04/30/18 17:16 morphine Allergy Nausea & Verified 04/30/18 17:16 Vomiting sulfamethoxazole Allergy Rash/Hives Verified 04/30/18 17:16 [From Bactrim] trimethoprim [From Bactrim] Allergy Rash/Hives Verified 04/30/18 17:16 cow hair Allergy Anaphylaxis Uncoded 04/30/18 16:15 Physical Exam Vitals: Vital Signs Temp Pulse Pulse Resp BP BP Pulse Ox 05/01/18 04:00 98.0 F 68 18 130/80 99 04/30/18 23:18 131 H 18 04/30/18 23:16 97.6 F 114 H 19 131/83 97 04/30/18 20:09 93 20 119/108 99 04/30/18 20:06 97.6 F 131 H 18 123/79 98 04/30/18 18:27 18 04/30/18 18:26 99 18 125/79 100 04/30/18 18:00 99 125/79 100 04/30/18 17:30 124 H 111/96 99 04/30/18 17:00 124 H 110/88 04/30/18 16:32 118 H 04/30/18 16:27 141 H 04/30/18 16:12 98.2 F 129 H 22 135/88 98 Intake and Output 04/30/18 05/01/18 05/01/18 22:59 06:59 14:59 Intake Total 40 71.214 Output Total 900 Balance 40 -828.786 Intake: Intake, IV Titration 40 71.214 Amount Heparin Sod,Pork in 0.45% 71.214 NaCl 25,000 unit In 0.45 % NaCl 1 250ml.bag @ 12 UNITS/KG/HR 9.96 mls/hr IV .Q24H ERNST Rx#: [id number] Sodium Chloride 0.9% 1, 40 000 ml @ 20 mls/hr IV . Q24H ERNST Rx#:[id number] Output: Urine 900 Other: Voiding Method Urinal # Voids 1 Weight 83.007 kg 85.9 kg PHYSICAL EXAMINATION: GENERAL: 87-year-old gentleman in no acute distress at the time of my examination HEENT: Head is atraumatic, normocephalic. Pupils equal, round. Sclera anicteric. Conjunctiva are clear. Mucous membranes of the mouth are moist. Neck is supple. There is elevated jugular venous pressure. No carotid bruit is heard. HEART EXAMINATION: Heart S1 and S2 irregularly irregular a systolic ejection murmur is heard CHEST EXAMINATION: Lungs reveal crackles bilaterally with diminished air entry to the bases. ABDOMEN: Soft, nontender. Bowel sounds are heard. No organomegaly noted. EXTREMITIES: 2+ peripheral pulses with evidence of peripheral edema and no calf tenderness noted. NEUROLOGIC patient is awake, alert and oriented 3 . . Results 05/01/18 06:30 05/01/18 06:30 Cardiac Enzymes 04/30/18 04/30/18 Range/Units 17:01 17: AST 29 (17-59) U/L CK-MB (CK-2) 1.8 (0.0-2.4) ng/mL Troponin I 0.112 H* (0.000-0.034) ng/mL Coagulation 04/30/18 05/01/18 Range/Units 17:01 00:46 PT 10.3 (9.0-12.0) sec APTT 23.2 72.7 H (22.0-30.0) sec CBC 04/30/18 05/01/18 Range/Units 17:01 06:30 WBC 7.5 7.0 (3.8-10.6) k/uL RBC 3.17 L 2.97 L (4.30-5.90) m/uL Hgb 9.8 L 9.5 L (13.0-17.5) gm/dL Hct 30.2 L 28.7 L (39.0-53.0) % Plt Count 213 203 (150-450) k/uL Comprehensive Metabolic Panel 04/30/18 05/01/18 Range/Units 17:01 06:30 Sodium 137 139 (137-145) mmol/L Potassium 4.7 4.0 (3.5-5.1) mmol/L Chloride 104 107 (98-107) mmol/L Carbon Dioxide 25 28 (22-30) mmol/L BUN 50 H 52 H (9-20) mg/dL Creatinine 1.70 H 1.62 H (0.66-1.25) mg/dL Glucose 188 H 138 H (74-99) mg/dL Calcium 9.1 8.9 (8.4-10.2) mg/dL AST 29 (17-59) U/L ALT 33 (21-72) U/L Alkaline Phosphatase 83 (38-126) U/L Total Protein 5.5 L (6.3-8.2) g/dL Albumin 3.1 L (3.5-5.0) g/dL Current Medications Generic Name Dose Route Start Last Admin Trade Name Freq PRN Reason Stop Dose Admin Allopurinol 200 mg 04/30/18 21:30 04/30/18 21:55 Zyloprim PO 200 mg HS ERNST Administration Alprazolam 0.5 mg 05/01/18 00:54 05/01/18 01:03 Xanax PO 0.5 mg BID PRN Administration Anxiety Aspirin 81 mg 05/01/18 12:00 Aspirin PO DAILY@1200 ERNST Atorvastatin Calcium 40 mg 04/30/18 21:30 04/30/18 21:54 Lipitor PO 40 mg HS ERNST Administration Diltiazem HCl 30 mg 05/01/18 09:00 Cardizem Oral PO QID ERNST Donepezil HCl 10 mg 04/30/18 21:30 04/30/18 21:54 Aricept PO 10 mg HS ERNST Administration Doxazosin Mesylate 4 mg 04/30/18 21:30 04/30/18 21:55 Cardura PO 4 mg HS ERNST Administration Ferrous Sulfate 325 mg 04/30/18 21:30 04/30/18 21:54 Feosol PO 325 mg BID ERNST Administration Folic Acid 1 mg 04/30/18 21:30 04/30/18 21:54 Folic Acid PO 1 mg HS ERNST Administration Furosemide 40 mg 04/30/18 21:30 04/30/18 21:54 Lasix PO 40 mg BID@0900,1600 ERNST Administration Gabapentin 300 mg 05/01/18 09:00 Neurontin PO DAILY ERNST Gabapentin 600 mg 04/30/18 21:30 04/30/18 21:54 Neurontin PO 600 mg HS ERNST Administration Heparin Sodium (Porcine) 0 unit 04/30/18 16:32 Heparin IV PER PROTOCOL PRN Low PTT Protocol Heparin Sodium/Sodium Chloride 250 mls @ 9.96 mls/hr 04/30/18 16:45 05/01/18 01:22 25,000 unit/ Sodium Chloride IV 12 units/kg/hr .Q24H ERNST 9.96 mls/hr Titration Protocol 12 UNITS/KG/HR Sodium Chloride 1,000 mls @ 20 mls/hr 04/30/18 20:00 04/30/18 21:58 Saline 0.9% IV 20 mls/hr .Q24H ERNST Administration Insulin Aspart 0 unit 05/01/18 07:30 05/01/18 06:44 Novolog SQ Not Given [facility] Protocol Insulin Detemir 5 unit 04/30/18 21:30 04/30/18 22:03 Levemir SQ 5 unit HS [facility] Administration Isosorbide Mononitrate 120 mg 05/01/18 09:00 Imdur PO DAILY [facility] Levothyroxine Sodium 75 mcg 05/01/18 12:00 Synthroid PO DAILY@1200 [facility] Naloxone HCl 0.2 mg 04/30/18 19:54 Narcan IV Q2M PRN Opioid Reversal Pantoprazole Sodium 40 mg 05/01/18 09:00 Protonix IV DAILY [facility] Pantoprazole Sodium 40 mg 05/01/18 12:00 Protonix PO DAILY@1200 [facility] Tamsulosin HCl 0.4 mg 05/01/18 12:00 Flomax PO DAILY@1200 [facility] Intake and Output 04/30/18 05/01/18 05/01/18 22:59 06:59 14:59 Intake Total 40 71.214 Output Total 900 Balance 40 -828.786 Intake: Intake, IV Titration 40 71.214 Amount Heparin Sod,Pork in 0.45% 71.214 NaCl 25,000 unit In 0.45 % NaCl 1 250ml.bag @ 12 UNITS/KG/HR 9.96 mls/hr IV .Q24H ERNST Rx#: [id number] Sodium Chloride 0.9% 1, 40 000 ml @ 20 mls/hr IV . Q24H ERNST Rx#:[id number] Output: Urine 900 Other: Voiding Method Urinal # Voids 1 Weight 83.007 kg 85.9 kg 05/01/18 06:30 05/01/18 06:30 EKG Interpretations (text) EKG shows atrial fibrillation with mildly rapid ventricular response, nonspecific ST-T wave changes. Assessment and Plan Plan: Assessment and plan #1 symptoms of chest tightness with associated shortness of breath, evidence of mild congestive cardiac failure, LV function unknown. Could also be secondary to atrial fibrillation with rapid ventricular response which appears to be of new onset for this patient. Mild abnormality in troponin, rule out acute coronary syndrome. #2 known history of coronary artery disease with prior stenting of the LAD and RCA in the past #3 hypertension #4 diabetes #5 hyperlipidemia #6 chronic kidney disease #7 hypothyroidism Plan We will obtain an echocardiogram with Doppler study as well as a TSH level. Decrease aspirin to 81 mg daily, continue Lipitor. Discontinue Cardizem and start the patient on a beta william. Start the patient on IV Lasix monitoring renal function closely. Monitor intake and output along with daily weights and daily lytes BUN and creatinine. We will diurese the patient today, obtain 2 subsequent troponins. Patient may need a cardiac catheterization prior to discharge, we'll continue IV heparin, and look into one of the newer anticoagulants to be initiated prior to discharge. Further recommendations to follow.
[2018-05-01] MEDS: ASPIRIN 81 MG PO SCH (11:18)
[2018-05-01] MEDS: TAMSULOSIN 0.4 MG CAP.ER.24H PO SCH (11:18)
[2018-05-01] MEDS: METOPROLOL TARTRATE 25 MG TAB PO SCH ×2 (11:18→21:23)
[2018-05-01] MEDS: PANTOPRAZOLE 40 MG TABLET PO SCH (11:18)
[2018-05-01] MEDS: ISOSORBIDE MONONITRATE ER 60 MG TAB.ER.24H PO SCH (11:18)
[2018-05-01] MEDS: LEVOTHYROXINE 75 MCG TAB PO SCH (11:18)
[2018-05-01] MEDS: GABAPENTIN 300 MG CAP PO SCH ×2 (11:19→21:21)
[2018-05-01] MEDS: FUROSEMIDE 10 MG/ML 4 ML VIAL IV SCH ×2 (11:20→21:21)
[2018-05-01] MEDS: FERROUS SULFATE 325 MG TAB PO SCH ×2 (11:20→21:22)
[2018-05-01 11:23] LABS: Glucose,Whole Blood 128 mg/dL (75-99)
[2018-05-01] MEDS: FUROSEMIDE 80 MG TAB PO SCH (11:36)
--- NOTE | 2018-05-01 12:49 | P.PN ---
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 who presents with dyspnea of one day duration , associated with some chest tightness ,central non radiating, also felt as dull at times as per daughter at bed side, which is mild pain and resolved now . pt gave history of common cold about 2-3 weeks ago when he was in [place]. he visited his pcp for his common cold last week who gave him nebulizor treatment and prednisone pack , and lowered his regular dose of lasix 80 mg BID to 40 mg BID because he was dehydrated as per family , his sugar was fluctuating between 100 and 500 , he has worening in his leg swelling on both sides he denies dizziness, syncope , no change in urine or bowel habits or fever. pt has chronic loose stool for one year since he had his gall bladder removed about one year ago on adission he was found to have new onset a fib with RVR, pt was started on heparin drip by ED team heart rate was 131 ,came down to 92, CBC and BMP were unremarkable , creatinine 1.7 which is close to his baseline. troponin is mildly elevated, UA is not suspicious for infection . EKG: A fib rate 117, CXR: mild pulmonary fibrosis. 05/01/2018 Today patient is not dyspneic with no chest pain. Cardiology has been evaluated the patient and they recommended to to switch Cardizem with beta william while getting IV Lasix. And the recommended echocardiogram and stress troponins. Vision currently is on IV heparin which is continued was possible switched to new oral anticoagulation upon discharge. Repeat troponin looks his stable at 0.112 and 0.119. She was started on metoprolol 25 mg twice a day and IV Lasix 40 mg twice a day. Patient is already on levothyroxine at 75 g per oral daily, however with check TSH level. My review of systems CONSTITUTIONAL: No fever, no malaise, no fatigue. HEENT: No recent visual problems or hearing problems. Denied any sore throat. PULMONARY: no cough, no hemoptysis. GASTROINTESTINAL: No diarrhea, no nausea, no vomiting, no abdominal pain. Normoactive bowel sounds. NEUROLOGICAL: No headaches, no weakness, no numbness. HEMATOLOGICAL: Denies any bleeding or petechiae. GENITOURINARY: Denies any burning micturition, frequency, or urgency. MUSCULOSKELETAL/RHEUMATOLOGICAL: Denies any joint pain, swelling, or any muscle pain. ENDOCRINE: Denies any polyuria or polydipsia. Medication: Allopurinol, Xanax, aspirin, Lipitor, Aricept, doxazosin, heparin drip, Neurontin, Lasix, folic acid, iron pills, insulin, Imdur, Synthroid, Lopressor, Protonix, normal saline, Flomax, Narcan. Objective - Vital Signs Vital signs: Vital Signs Temp 98.1 F 05/01/18 11:15 Pulse 79 05/01/18 11:15 Resp 16 05/01/18 11:15 BP 130/92 05/01/18 11:15 Pulse Ox 98 05/01/18 11:15 Intake & Output 04/30/18 05/01/18 05/01/18 18:59 06:59 18:59 Intake Total 111.214 Output Total 900 Balance -788.786 Weight 83.007 kg 85.9 kg Intake: Intake, IV Titration 111.214 Amount Heparin Sod,Pork in 0.45% 71.214 NaCl 25,000 unit In 0.45 % NaCl 1 250ml.bag @ 12 UNITS/KG/HR 9.96 mls/hr IV .Q24H ERNST Rx#: [id number] Sodium Chloride 0.9% 1, 40 000 ml @ 20 mls/hr IV . Q24H ERNST Rx#:[id number] Output: Urine 900 Other: Voiding Method Urinal # Voids 1 - Exam GENERAL: The patient is alert and oriented x3, not in any acute distress. Well developed, well nourished. HEENT: Pupils are round and equally reacting to light. EOMI. No scleral icterus. No conjunctival pallor. Normocephalic, atraumatic. No pharyngeal erythema. No thyromegaly. CARDIOVASCULAR: S1 and S2 present. No murmurs, rubs, or gallops. PULMONARY: Chest is clear to auscultation, no wheezing or crackles. ABDOMEN: Soft, nontender, nondistended, normoactive bowel sounds. No palpable organomegaly. MUSCULOSKELETAL: No joint swelling or deformity. EXTREMITIES: No cyanosis, clubbing, or pedal edema. NEUROLOGICAL: Gross neurological examination did not reveal any focal deficits. SKIN: No rashes. - Labs CBC & Chem 7: 05/01/18 06:30 05/01/18 06:30 Labs: Abnormal Lab Results - Last 24 Hours (Table) 04/30/18 04/30/18 04/30/18 Range/Units 17:01 17:01 17:01 RBC 3.17 L (4.30-5.90) m/uL Hgb 9.8 L (13.0-17.5) gm/dL Hct 30.2 L (39.0-53.0) % RDW 18.4 H (11.5-15.5) % APTT (22.0-30.0) sec BUN 50 H (9-20) mg/dL Creatinine 1.70 H (0.66-1.25) mg/dL Glucose 188 H (74-99) mg/dL POC Glucose (mg/dL) (75-99) mg/dL Total Creatine Kinase 42 L (55-170) U/L Troponin I 0.112 H* (0.000-0.034) ng/mL Total Protein 5.5 L (6.3-8.2) g/dL Albumin 3.1 L (3.5-5.0) g/dL Urine Protein (Negative) 04/30/18 04/30/18 04/30/18 Range/Units 17:47 19:03 21:21 RBC (4.30-5.90) m/uL Hgb (13.0-17.5) gm/dL Hct (39.0-53.0) % RDW (11.5-15.5) % APTT (22.0-30.0) sec BUN (9-20) mg/dL Creatinine (0.66-1.25) mg/dL Glucose (74-99) mg/dL POC Glucose (mg/dL) 193 H 235 H (75-99) mg/dL Total Creatine Kinase (55-170) U/L Troponin I (0.000-0.034) ng/mL Total Protein (6.3-8.2) g/dL Albumin (3.5-5.0) g/dL Urine Protein Trace H (Negative) 05/01/18 05/01/18 05/01/18 Range/Units 00:46 06:16 06:30 RBC 2.97 L (4.30-5.90) m/uL Hgb 9.5 L (13.0-17.5) gm/dL Hct 28.7 L (39.0-53.0) % RDW 19.1 H (11.5-15.5) % APTT 72.7 H (22.0-30.0) sec BUN (9-20) mg/dL Creatinine (0.66-1.25) mg/dL Glucose (74-99) mg/dL POC Glucose (mg/dL) 146 H (75-99) mg/dL Total Creatine Kinase (55-170) U/L Troponin I (0.000-0.034) ng/mL Total Protein (6.3-8.2) g/dL Albumin (3.5-5.0) g/dL Urine Protein (Negative) 05/01/18 05/01/18 05/01/18 Range/Units 06:30 06:43 09:49 RBC (4.30-5.90) m/uL Hgb (13.0-17.5) gm/dL Hct (39.0-53.0) % RDW (11.5-15.5) % APTT (22.0-30.0) sec BUN 52 H (9-20) mg/dL Creatinine 1.62 H (0.66-1.25) mg/dL Glucose 138 H (74-99) mg/dL POC Glucose (mg/dL) 147 H 150 H (75-99) mg/dL Total Creatine Kinase (55-170) U/L Troponin I (0.000-0.034) ng/mL Total Protein (6.3-8.2) g/dL Albumin (3.5-5.0) g/dL Urine Protein (Negative) 05/01/18 05/01/18 Range/Units 10:50 11:22 RBC (4.30-5.90) m/uL Hgb (13.0-17.5) gm/dL Hct (39.0-53.0) % RDW (11.5-15.5) % APTT (22.0-30.0) sec BUN (9-20) mg/dL Creatinine (0.66-1.25) mg/dL Glucose (74-99) mg/dL POC Glucose (mg/dL) 128 H (75-99) mg/dL Total Creatine Kinase (55-170) U/L Troponin I 0.119 H* (0.000-0.034) ng/mL Total Protein (6.3-8.2) g/dL Albumin (3.5-5.0) g/dL Urine Protein (Negative) Assessment and Plan Assessment: a fib with RVR present on admission , new onset Chest tightness, rule out acute coronary syndrome upper resp infection , recent h/o congestvie heart failure history of coronary artery disease hypertension hyperlipidemia Diabetes Mellitus , type II Chronic kidney disease , stage III hypothyroidism hearing difficulty Plan: this is a pleasant 87 yo M , who present with new onset a fib with RVR, continue with diuretic , call cardiology consult , hold metformin and start levemir , check Hb A1c, c/w heparin drip, aspirin and metoprolol . Labs and medication were reviewed.. Continue same treatment. Continue with symptomatic treatment. Resume home medication. Monitor lytes and vitals. DVT and GI prophylaxis. Further recommendations of the clinical course of the patient DVT prophylaxis: Subcutaneous heparin GI Prophylaxis: Pepcid PT/OT: Pending Prognosis is guarded
[2018-05-01 14:25] LABS: Hemoglobin A1C 8.4 % (4.0-6.0)
[2018-05-01 16:33] LABS: Glucose,Whole Blood 267 mg/dL (75-99)
[2018-05-01 20:53] LABS: Glucose,Whole Blood 147 mg/dL (75-99)
[2018-05-01] MEDS: INSULIN DETEMIR (LEVEMIR) 100 UNIT/ML SYR SQ SCH (21:21)
[2018-05-01] MEDS: APIXABAN 2.5 MG TABLET PO SCH (21:21)
[2018-05-01] MEDS: DOXAZOSIN 4 MG TAB PO SCH (21:22)
[2018-05-01] MEDS: ALLOPURINOL 100 MG TAB PO SCH (21:22)
[2018-05-01] MEDS: FOLIC ACID 1 MG TAB PO SCH (21:22)
[2018-05-01] MEDS: DONEPEZIL 10 MG TAB PO SCH (21:22)
[2018-05-01] MEDS: ATORVASTATIN 40 MG TAB PO SCH (21:22)
[2018-05-01] MEDS: SODIUM CHLORIDE 0.9% 1,000 ML IV SCH (21:23)
[2018-05-02 06:45] LABS: Glucose,Whole Blood 117 mg/dL (75-99)
[2018-05-02] MEDS: INSULIN ASPART (NovoLOG) 100 UNIT/ML VIAL SQ SCH ×4 (06:46→20:27)
[2018-05-02 07:31] LABS: Anisocytosis Slight; Basophils % (A) 0 %; Eosinophils # (A) 0.2 k/uL (0-0.7); Eosinophils % (A) 3 %; HGB 9.7 gm/dL (13.0-17.5); Lymphocytes # (A) 1.2 k/uL (1.0-4.8); Lymphocytes % (A) 18 %; MCH 31.7 pg (25.0-35.0); MCHC 32.4 g/dL (31.0-37.0); MCV 97.8 fL (80.0-100.0); Macrocytosis Slight; Mean Platelet Volume 7.5; Monocytes # (A) 0.4 k/uL (0-1.0); Monocytes % (A) 6 %; Neutrophils # (A) 4.9 k/uL (1.3-7.7); Neutrophils % (A) 71 %; Platelet Count 169 k/uL (150-450); RBC 3.06 m/uL (4.30-5.90); RDW 19.4 % (11.5-15.5); WBC 6.8 k/uL (3.8-10.6)
[2018-05-02 07:52] LABS: Calcium 8.8 mg/dL (8.4-10.2); Potassium 3.6 mmol/L (3.5-5.1)
[2018-05-02] MEDS: METOPROLOL TARTRATE 25 MG TAB PO SCH ×2 (09:32→20:28)
[2018-05-02] MEDS: GABAPENTIN 300 MG CAP PO SCH ×2 (09:32→20:28)
[2018-05-02] MEDS: FUROSEMIDE 10 MG/ML 4 ML VIAL IV SCH ×2 (09:33→20:28)
[2018-05-02] MEDS: FERROUS SULFATE 325 MG TAB PO SCH ×2 (09:33→20:28)
[2018-05-02] MEDS: APIXABAN 2.5 MG TABLET PO SCH ×2 (09:33→20:28)
[2018-05-02] MEDS: ISOSORBIDE MONONITRATE ER 60 MG TAB.ER.24H PO SCH (09:33)
[2018-05-02 11:43] LABS: Glucose,Whole Blood 156 mg/dL (75-99)
[2018-05-02] MEDS: TAMSULOSIN 0.4 MG CAP.ER.24H PO SCH (13:11)
[2018-05-02] MEDS: PANTOPRAZOLE 40 MG TABLET PO SCH (13:11)
[2018-05-02] MEDS: LEVOTHYROXINE 75 MCG TAB PO SCH (13:11)
[2018-05-02] MEDS: ASPIRIN 81 MG PO SCH (13:11)
--- NOTE | 2018-05-02 14:00 | P.PN ---
Subjective Progress Note Date: 05/02/18 This is an 87-year-old gentleman who follows with Dr. Cates in the office. He has a known history of coronary artery disease with prior stent placement, hypertension, chronic persistent atrial fibrillation, diabetes, hyperlipidemia, he states he was taken off all blood pressure medications about 45 years ago, hypothyroidism, chronic kidney disease, prostate disorder, who presents to the hospital on this admission with symptoms of chest tightness and discomfort with associated shortness of breath, one day duration. Approximately 3 weeks ago he was diagnosed with influenza while he was in [place], he was treated with nebulizer and a Medrol Dosepak. They also decrease his home dose of Lasix in half from 80 twice a day to 40 twice a day. Chest x-ray on admission here showed mild pulmonary fibrosis with minimal scarring and atelectasis at the left lung base. EKG on admission here showed atrial fibrillation with a moderately rapid ventricular response, occasional PVC and nonspecific ST-T wave changes, right bundle branch block pattern. Blood pressure on arrival here 134/80 with a heart rate in the 120s, 98% on room air, temperature 98.2. Blood pressure this morning 130/80 with a heart rate in the 60s, 99% on 2 L of oxygen. White blood cell count 7.0, hemoglobin 9.5, platelet count 203. Sodium 139, potassium 4.0, BUN 50 on admission and creatinine 1.7, 52 and 1.6 this morning. Magnesium level 2.2. Troponin 0.112, BNP level 8160, TSH 1.6. At the time of my examination this morning, the patient is currently chest pain-free. Breathing overall is stable. 05/02/2018 Patient seen and examined today, the time of my examination he sitting up in his chair at bedside, feels well overall. He does state that last evening he had an episode where he felt all anxious inside, he felt some mild tightness in the chest. Blood pressure and heart rate stable. This morning's blood pressure is 142/60 with a heart rate of 90, 96% on room air. White blood cell count 6.8, hemoglobin 9.7, platelet count 169. Sodium 140, potassium 3.6, BUN 45 and creatinine 1.7. Echocardiogram with Doppler study remains pending. We will continue with current dose of Lasix for 24 hours. Continue to monitor intake and output along with daily weights and daily lytes BUN and creatinine. Objective - Vital Signs Vital signs: Vital Signs Temp 98.1 F 05/02/18 08:00 Pulse 98 05/02/18 08:00 Resp 18 05/02/18 08:00 BP 143/60 05/02/18 08:00 Pulse Ox 96 05/02/18 08:00 Intake & Output 05/01/18 05/02/18 05/02/18 18:59 06:59 18:59 Intake Total 240 180 Output Total 1600 225 0 Balance -1360 -225 180 Intake: Oral 240 180 Output: Urine 1600 225 0 Other: Voiding Method Toilet Urinal - Exam PHYSICAL EXAMINATION: GENERAL: 87-year-old gentleman in no acute distress at the time of my examination HEENT: Head is atraumatic, normocephalic. Pupils equal, round. Sclera anicteric. Conjunctiva are clear. Mucous membranes of the mouth are moist. Neck is supple. There is elevated jugular venous pressure. No carotid bruit is heard. HEART EXAMINATION: Heart S1 and S2 irregularly irregular a systolic ejection murmur is heard CHEST EXAMINATION: Lungs reveal crackles bilaterally with diminished air entry to the bases. ABDOMEN: Soft, nontender. Bowel sounds are heard. No organomegaly noted. EXTREMITIES: 2+ peripheral pulses with evidence of peripheral edema and no calf tenderness noted. NEUROLOGIC patient is awake, alert and oriented 3 . - Labs CBC & Chem 7: 05/02/18 06:25 05/02/18 06:25 Labs: Abnormal Lab Results - Last 24 Hours (Table) 04/30/18 05/01/18 05/01/18 Range/Units 17:01 16:02 16:31 RBC (4.30-5.90) m/uL Hgb (13.0-17.5) gm/dL Hct (39.0-53.0) % RDW (11.5-15.5) % BUN (9-20) mg/dL Creatinine (0.66-1.25) mg/dL POC Glucose (mg/dL) 267 H (75-99) mg/dL Hemoglobin A1c 8.4 H (4.0-6.0) % Troponin I 0.102 H* (0.000-0.034) ng/mL 05/01/18 05/01/18 05/02/18 Range/Units 20:24 20:52 06:25 RBC 3.06 L (4.30-5.90) m/uL Hgb 9.7 L (13.0-17.5) gm/dL Hct 30.0 L (39.0-53.0) % RDW 19.4 H (11.5-15.5) % BUN (9-20) mg/dL Creatinine (0.66-1.25) mg/dL POC Glucose (mg/dL) 147 H (75-99) mg/dL Hemoglobin A1c (4.0-6.0) % Troponin I 0.114 H* (0.000-0.034) ng/mL 05/02/18 05/02/18 05/02/18 Range/Units 06:25 06:35 11:36 RBC (4.30-5.90) m/uL Hgb (13.0-17.5) gm/dL Hct (39.0-53.0) % RDW (11.5-15.5) % BUN 45 H (9-20) mg/dL Creatinine 1.73 H (0.66-1.25) mg/dL POC Glucose (mg/dL) 117 H 156 H (75-99) mg/dL Hemoglobin A1c (4.0-6.0) % Troponin I (0.000-0.034) ng/mL Assessment and Plan Plan: Assessment and plan #1 symptoms of chest tightness with associated shortness of breath, evidence of mild congestive cardiac failure, LV function unknown. Could also be secondary to atrial fibrillation with rapid ventricular response which appears to be of new onset for this patient. Mild abnormality in troponin, rule out acute coronary syndrome. #2 known history of coronary artery disease with prior stenting of the LAD and RCA in the past #3 hypertension #4 diabetes #5 hyperlipidemia #6 chronic kidney disease #7 hypothyroidism Plan TSH level came back to be normal. Echo remains pending. We will continue current dose of IV Lasix, monitoring intake and output along with daily weights and daily lytes BUN and creatinine. DNP note has been reviewed, I agree with a documented findings and plan of care. Patient was seen and examined.
[2018-05-02 16:51] LABS: Glucose,Whole Blood 272 mg/dL (75-99)
--- NOTE | 2018-05-02 19:20 | P.PN ---
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 Dutch Juares and follow up with his wedding day coordinator. who presents with dyspnea of one day duration , associated with some chest tightness ,central non radiating, also felt as dull at times as per daughter at bed side, which is mild pain and resolved now . pt gave history of common cold about 2-3 weeks ago when he was in [place]. he visited his pcp for his common cold last week who gave him nebulizor treatment and prednisone pack , and lowered his regular dose of lasix 80 mg BID to 40 mg BID because he was dehydrated as per family , his sugar was fluctuating between 100 and 500 , he has worening in his leg swelling on both sides he denies dizziness, syncope , no change in urine or bowel habits or fever. pt has chronic loose stool for one year since he had his gall bladder removed about one year ago on adission he was found to have new onset a fib with RVR, pt was started on heparin drip by ED team heart rate was 131 ,came down to 92, CBC and BMP were unremarkable , creatinine 1.7 which is close to his baseline. troponin is mildly elevated, UA is not suspicious for infection . EKG: A fib rate 117, CXR: mild pulmonary fibrosis. 05/01/2018 Today patient is not dyspneic with no chest pain. Cardiology has been evaluated the patient and they recommended to to switch Cardizem with beta william while getting IV Lasix. And the recommended echocardiogram and stress troponins. Vision currently is on IV heparin which is continued was possible switched to new oral anticoagulation upon discharge. Repeat troponin looks his stable at 0.112 and 0.119. She was started on metoprolol 25 mg twice a day and IV Lasix 40 mg twice a day. Patient is already on levothyroxine at 75 g per oral daily, however with check TSH level. 05/02/2018 Patient today feels a little better, although he still dyspneic. Patient has been evaluated by wedding day coordinator and patient continued to receive IV Lasix. TSH came back normal. Creatinine 1.7 My review of systems CONSTITUTIONAL: No fever, no malaise, no fatigue. HEENT: No recent visual problems or hearing problems. Denied any sore throat. PULMONARY: no cough, no hemoptysis. GASTROINTESTINAL: No diarrhea, no nausea, no vomiting, no abdominal pain. Normoactive bowel sounds. NEUROLOGICAL: No headaches, no weakness, no numbness. HEMATOLOGICAL: Denies any bleeding or petechiae. GENITOURINARY: Denies any burning micturition, frequency, or urgency. MUSCULOSKELETAL/RHEUMATOLOGICAL: Denies any joint pain, swelling, or any muscle pain. ENDOCRINE: Denies any polyuria or polydipsia. Medication: Allopurinol, Xanax, aspirin, Lipitor, Aricept, doxazosin, heparin drip, Neurontin, Lasix, folic acid, iron pills, insulin, Imdur, Synthroid, Lopressor, Protonix, normal saline, Flomax, Narcan. Objective - Vital Signs Vital signs: Vital Signs Temp 98.1 F 05/02/18 16:00 Pulse 89 05/02/18 16:00 Resp 18 05/02/18 16:00 BP 122/68 05/02/18 16:00 Pulse Ox 96 05/02/18 16:00 Intake & Output 05/02/18 05/02/18 05/03/18 06:59 18:59 06:59 Intake Total 540 Output Total 225 500 Balance -225 40 Weight 86 kg Intake: Oral 540 Output: Urine 225 500 Other: Voiding Method Toilet Urinal # Bowel Movements 2 - Exam GENERAL: The patient is alert and oriented x3, not in any acute distress. Well developed, well nourished. HEENT: Pupils are round and equally reacting to light. EOMI. No scleral icterus. No conjunctival pallor. Normocephalic, atraumatic. No pharyngeal erythema. No thyromegaly. CARDIOVASCULAR: S1 and S2 present. No murmurs, rubs, or gallops. PULMONARY: Chest is clear to auscultation, no wheezing or crackles. ABDOMEN: Soft, nontender, nondistended, normoactive bowel sounds. No palpable organomegaly. MUSCULOSKELETAL: No joint swelling or deformity. EXTREMITIES: No cyanosis, clubbing, or pedal edema. NEUROLOGICAL: Gross neurological examination did not reveal any focal deficits. SKIN: No rashes. - Labs CBC & Chem 7: 05/02/18 06:25 05/02/18 06:25 Labs: Abnormal Lab Results - Last 24 Hours (Table) 05/01/18 05/01/18 05/02/18 Range/Units 20:24 20:52 06:25 RBC 3.06 L (4.30-5.90) m/uL Hgb 9.7 L (13.0-17.5) gm/dL Hct 30.0 L (39.0-53.0) % RDW 19.4 H (11.5-15.5) % BUN (9-20) mg/dL Creatinine (0.66-1.25) mg/dL POC Glucose (mg/dL) 147 H (75-99) mg/dL Troponin I 0.114 H* (0.000-0.034) ng/mL 05/02/18 05/02/18 05/02/18 Range/Units 06:25 06:35 11:36 RBC (4.30-5.90) m/uL Hgb (13.0-17.5) gm/dL Hct (39.0-53.0) % RDW (11.5-15.5) % BUN 45 H (9-20) mg/dL Creatinine 1.73 H (0.66-1.25) mg/dL POC Glucose (mg/dL) 117 H 156 H (75-99) mg/dL Troponin I (0.000-0.034) ng/mL 05/02/18 Range/Units 16:41 RBC (4.30-5.90) m/uL Hgb (13.0-17.5) gm/dL Hct (39.0-53.0) % RDW (11.5-15.5) % BUN (9-20) mg/dL Creatinine (0.66-1.25) mg/dL POC Glucose (mg/dL) 272 H (75-99) mg/dL Troponin I (0.000-0.034) ng/mL Assessment and Plan Assessment: a fib with RVR present on admission , new onset Chest tightness, rule out acute coronary syndrome upper resp infection , recent h/o congestvie heart failure history of coronary artery disease hypertension hyperlipidemia Diabetes Mellitus , type II Chronic kidney disease , stage III hypothyroidism hearing difficulty Plan: this is a pleasant 87 yo M , who present with new onset a fib with RVR, continue with diuretic , call cardiology consult , hold metformin and start levemir , check Hb A1c, c/w heparin drip, aspirin and metoprolol . Labs and medication were reviewed.. Continue same treatment. Continue with symptomatic treatment. Resume home medication. Monitor lytes and vitals. DVT and GI prophylaxis. Further recommendations of the clinical course of the patient DVT prophylaxis: Subcutaneous heparin GI Prophylaxis: Pepcid PT/OT: Pending Prognosis is guarded
[2018-05-02 20:18] LABS: Glucose,Whole Blood 180 mg/dL (75-99)
[2018-05-02] MEDS: SODIUM CHLORIDE 0.9% 1,000 ML IV SCH (20:21)
[2018-05-02] MEDS: INSULIN DETEMIR (LEVEMIR) 100 UNIT/ML SYR SQ SCH (20:27)
[2018-05-02] MEDS: ALPRAZolam 0.5 MG TAB PO PRN (20:27)
[2018-05-02] MEDS: ALLOPURINOL 100 MG TAB PO SCH (20:28)
[2018-05-02] MEDS: ATORVASTATIN 40 MG TAB PO SCH (20:28)
[2018-05-02] MEDS: DOXAZOSIN 4 MG TAB PO SCH (20:28)
[2018-05-02] MEDS: DONEPEZIL 10 MG TAB PO SCH (20:28)
[2018-05-02] MEDS: FOLIC ACID 1 MG TAB PO SCH (20:28)
[2018-05-03 06:00] LABS: Glucose,Whole Blood 96 mg/dL (75-99)
[2018-05-03] MEDS: INSULIN ASPART (NovoLOG) 100 UNIT/ML VIAL SQ SCH ×4 (06:06→20:43)
[2018-05-03 06:29] LABS: Anisocytosis Slight; Basophils % (A) 0 %; Eosinophils # (A) 0.2 k/uL (0-0.7); Eosinophils % (A) 2 %; HCT 30.9 % (39.0-53.0); HGB 9.8 gm/dL (13.0-17.5); Lymphocytes # (A) 1.4 k/uL (1.0-4.8); Lymphocytes % (A) 17 %; MCH 31.2 pg (25.0-35.0); MCHC 31.8 g/dL (31.0-37.0); Macrocytosis Slight; Mean Platelet Volume 8.5; Monocytes # (A) 0.6 k/uL (0-1.0); Monocytes % (A) 7 %; Neutrophils # (A) 5.9 k/uL (1.3-7.7); Neutrophils % (A) 72 %; Platelet Count 175 k/uL (150-450); RBC 3.16 m/uL (4.30-5.90); RDW 18.4 % (11.5-15.5); WBC 8.1 k/uL (3.8-10.6)
[2018-05-03 06:57] LABS: Calcium 8.8 mg/dL (8.4-10.2); Potassium 3.9 mmol/L (3.5-5.1)
[2018-05-03] MEDS ORDERED: INSULIN DETEMIR (LEVEMIR) 100 UNIT/ML SYR SQ ONE (07:10)
[2018-05-03] MEDS: ISOSORBIDE MONONITRATE ER 60 MG TAB.ER.24H PO SCH (08:02)
[2018-05-03] MEDS: FERROUS SULFATE 325 MG TAB PO SCH ×2 (08:02→20:43)
[2018-05-03] MEDS: LEVOTHYROXINE 75 MCG TAB PO SCH (08:03)
[2018-05-03] MEDS: PANTOPRAZOLE 40 MG TABLET PO SCH (08:03)
[2018-05-03] MEDS: GABAPENTIN 300 MG CAP PO SCH ×2 (08:03→20:43)
[2018-05-03] MEDS: APIXABAN 2.5 MG TABLET PO SCH ×2 (08:03→20:43)
[2018-05-03] MEDS: FUROSEMIDE 10 MG/ML 4 ML VIAL IV SCH (08:03)
[2018-05-03] MEDS: METOPROLOL TARTRATE 25 MG TAB PO SCH ×2 (08:03→20:43)
[2018-05-03] MEDS: ASPIRIN 81 MG PO SCH (08:03)
[2018-05-03] MEDS: TAMSULOSIN 0.4 MG CAP.ER.24H PO SCH (08:03)
[2018-05-03 11:53] LABS: Glucose,Whole Blood 261 mg/dL (75-99)
--- NOTE | 2018-05-03 12:05 | ECHOF ---
Referral Reason:chf MEASUREMENTS -------- HEIGHT: 160.0 cm WEIGHT: 85.7 kg BP: 143/60 RVIDd: 3.2 cm (< 3.3) IVSd: 1.4 cm (0.6 - 1.1) LVIDd: 4.1 cm (3.9 - 5.3) LVPWd: 1.4 cm (0.6 - 1.1) IVSs: 1.6 cm LVIDs: 3.2 cm LVPWs: 1.6 cm LAESV Index (A-L): 63.93 ml/m Ao Diam: 3.2 cm (2.0 - 3.7) AV Cusp: 2.0 cm (1.5 - 2.6) LA Diam: 4.4 cm (2.7 - 3.8) MV EXCURSION: 23.254 mm (> 18.000) MV EF SLOPE: 229 mm/s (70 - 150) EPSS: 0.7 cm RAP: 5.00 mmHg RVSP: 30.57 mmHg FINDINGS -------- Atrial fibrillation. This was a technically adequate study. The left ventricular size is normal. There is moderate concentric left ventricular hypertrophy. O verall left ventricular systolic function is mildly impaired with, an EF between 45 - 50 %. The right ventricle is mildly enlarged. LA is severely dilated >40 ml/m2 RA appears enlarged. Aortic valve is trileaflet and is mildly thickened. There is mild aortic regurgitation. There is no evidence of aortic stenosis. The mitral valve leaflets are mildly thickened. [id number] mitral regurgitation is present. Mild tricuspid regurgitation present. Right ventricular systolic pressure is normal at < 35 mmHg. There is no evidence of pulmonary hypertension. Trace/mild (physiologic) pulmonic regurgitation. The aortic root size is normal. Normal inferior vena cava with normal inspiratory collapse consistent with estimated right atrial pre ssure of 5 mmHg. There is a small, generalized pericardial effusion present. CONCLUSIONS -------- 1. Atrial fibrillation. 2. This was a technically adequate study. 3. The left ventricular size is normal. 4. There is moderate concentric left ventricular hypertrophy. 5. Overall left ventricular systolic function is mildly impaired with, an EF between 45 - 50 %. 6. The right ventricle is mildly enlarged. 7. LA is severely dilated >40 ml/m2 8. RA appears enlarged. 9. Aortic valve is trileaflet and is mildly thickened. 10. There is mild aortic regurgitation. 11. The mitral valve leaflets are mildly thickened. 12. [id number] mitral regurgitation is present. 13. Mild tricuspid regurgitation present. 14. Trace/mild (physiologic) pulmonic regurgitation. 15. The aortic root size is normal. 16. There is a small, generalized pericardial effusion present. ELEVATOR ATTENDANT: Iván Winters RDCS
--- NOTE | 2018-05-03 15:04 | P.PN ---
Subjective Progress Note Date: 05/03/18 This is an 87-year-old gentleman who follows with Dr. Cates in the office. He has a known history of coronary artery disease with prior stent placement, hypertension, chronic persistent atrial fibrillation, diabetes, hyperlipidemia, he states he was taken off all blood pressure medications about 45 years ago, hypothyroidism, chronic kidney disease, prostate disorder, who presents to the hospital on this admission with symptoms of chest tightness and discomfort with associated shortness of breath, one day duration. Approximately 3 weeks ago he was diagnosed with influenza while he was in [place], he was treated with nebulizer and a Medrol Dosepak. They also decrease his home dose of Lasix in half from 80 twice a day to 40 twice a day. Chest x-ray on admission here showed mild pulmonary fibrosis with minimal scarring and atelectasis at the left lung base. EKG on admission here showed atrial fibrillation with a moderately rapid ventricular response, occasional PVC and nonspecific ST-T wave changes, right bundle branch block pattern. Blood pressure on arrival here 134/80 with a heart rate in the 120s, 98% on room air, temperature 98.2. Blood pressure this morning 130/80 with a heart rate in the 60s, 99% on 2 L of oxygen. White blood cell count 7.0, hemoglobin 9.5, platelet count 203. Sodium 139, potassium 4.0, BUN 50 on admission and creatinine 1.7, 52 and 1.6 this morning. Magnesium level 2.2. Troponin 0.112, BNP level 8160, TSH 1.6. At the time of my examination this morning, the patient is currently chest pain-free. Breathing overall is stable. 05/02/2018 Patient seen and examined today, the time of my examination he sitting up in his chair at bedside, feels well overall. He does state that last evening he had an episode where he felt all anxious inside, he felt some mild tightness in the chest. Blood pressure and heart rate stable. This morning's blood pressure is 142/60 with a heart rate of 90, 96% on room air. White blood cell count 6.8, hemoglobin 9.7, platelet count 169. Sodium 140, potassium 3.6, BUN 45 and creatinine 1.7. Echocardiogram with Doppler study remains pending. We will continue with current dose of Lasix for 24 hours. Continue to monitor intake and output along with daily weights and daily lytes BUN and creatinine. 05/03/2018 Patient seen and examined today, overall he states he is feeling significantly better, still has some mild shortness of breath. Heart rate today in the 80s, his weight is down 0.5 kg. Blood pressure 106/60, 100% on room air. BUN 46 and creatinine 1.8. We will obtain a repeat chest x-ray today. Continue IV Lasix for today and from tomorrow start the patient on oral diuretics. Objective - Vital Signs Vital signs: Vital Signs Temp 97.7 F 05/02/18 20:00 Pulse 97 05/03/18 12:00 Resp 20 05/03/18 12:00 BP 106/58 05/03/18 12:00 Pulse Ox 100 05/03/18 12:00 Intake & Output 05/02/18 05/03/18 05/03/18 18:59 06:59 18:59 Intake Total 540 480 Output Total 500 400 Balance 40 -400 480 Weight 85.5 kg Intake: Oral 540 480 Output: Urine 500 400 Other: Voiding Method Toilet Urinal # Voids 1 0 # Bowel Movements 2 - Exam PHYSICAL EXAMINATION: GENERAL: 87-year-old gentleman in no acute distress at the time of my examination HEENT: Head is atraumatic, normocephalic. Pupils equal, round. Sclera anicteric. Conjunctiva are clear. Mucous membranes of the mouth are moist. Neck is supple. There is elevated jugular venous pressure. No carotid bruit is heard. HEART EXAMINATION: Heart S1 and S2 irregularly irregular a systolic ejection murmur is heard CHEST EXAMINATION: Lungs reveal crackles bilaterally with improvement in air entry to the bases. ABDOMEN: Soft, nontender. Bowel sounds are heard. No organomegaly noted. EXTREMITIES: 2+ peripheral pulses with evidence of peripheral edema and no calf tenderness noted. NEUROLOGIC patient is awake, alert and oriented 3 . - Labs CBC & Chem 7: 05/03/18 05:19 05/03/18 05:19 Labs: Abnormal Lab Results - Last 24 Hours (Table) 05/02/18 05/02/18 05/03/18 Range/Units 16:41 20:17 05:19 RBC 3.16 L (4.30-5.90) m/uL Hgb 9.8 L (13.0-17.5) gm/dL Hct 30.9 L (39.0-53.0) % RDW 18.4 H (11.5-15.5) % BUN (9-20) mg/dL Creatinine (0.66-1.25) mg/dL POC Glucose (mg/dL) 272 H 180 H (75-99) mg/dL 05/03/18 05/03/18 Range/Units 05:19 11:42 RBC (4.30-5.90) m/uL Hgb (13.0-17.5) gm/dL Hct (39.0-53.0) % RDW (11.5-15.5) % BUN 46 H (9-20) mg/dL Creatinine 1.89 H (0.66-1.25) mg/dL POC Glucose (mg/dL) 261 H (75-99) mg/dL Assessment and Plan Plan: Assessment and plan #1 symptoms of chest tightness with associated shortness of breath, evidence of mild congestive cardiac failure, diastolic acute on chronic . Could also be secondary to atrial fibrillation with rapid ventricular response which appears to be of new onset for this patient. Mild abnormality in troponin, rule out acute coronary syndrome. #2 known history of coronary artery disease with prior stenting of the LAD and RCA in the past #3 hypertension #4 diabetes #5 hyperlipidemia #6 chronic kidney disease #7 hypothyroidism Plan We will continue IV Lasix for today, from tomorrow we will change him over to oral diuretics. Repeat chest x-ray. Echocardiogram with Doppler study revealed an ejection fraction of 45-50%. DNP note has been reviewed, I agree with a documented findings and plan of care. Patient was seen and examined.
[2018-05-03 15:39] VITALS: BMI 33.3
--- NOTE | 2018-05-03 16:28 | P.PN ---
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 Dutch Juares and follow up with his evening anchor. who presents with dyspnea of one day duration , associated with some chest tightness ,central non radiating, also felt as dull at times as per daughter at bed side, which is mild pain and resolved now . pt gave history of common cold about 2-3 weeks ago when he was in [place]. he visited his pcp for his common cold last week who gave him nebulizor treatment and prednisone pack , and lowered his regular dose of lasix 80 mg BID to 40 mg BID because he was dehydrated as per family , his sugar was fluctuating between 100 and 500 , he has worening in his leg swelling on both sides he denies dizziness, syncope , no change in urine or bowel habits or fever. pt has chronic loose stool for one year since he had his gall bladder removed about one year ago on adission he was found to have new onset a fib with RVR, pt was started on heparin drip by ED team heart rate was 131 ,came down to 92, CBC and BMP were unremarkable , creatinine 1.7 which is close to his baseline. troponin is mildly elevated, UA is not suspicious for infection . EKG: A fib rate 117, CXR: mild pulmonary fibrosis. 05/01/2018 Today patient is not dyspneic with no chest pain. Cardiology has been evaluated the patient and they recommended to to switch Cardizem with beta william while getting IV Lasix. And the recommended echocardiogram and stress troponins. Vision currently is on IV heparin which is continued was possible switched to new oral anticoagulation upon discharge. Repeat troponin looks his stable at 0.112 and 0.119. She was started on metoprolol 25 mg twice a day and IV Lasix 40 mg twice a day. Patient is already on levothyroxine at 75 g per oral daily, however with check TSH level. 05/02/2018 Patient today feels a little better, although he still dyspneic. Patient has been evaluated by evening anchor and patient continued to receive IV Lasix. TSH came back normal. Creatinine 1.7. Latest heart rate is 97. Labs reviewed creatinine is 1.8 which is close to baseline of 1.7-1.9, hemoglobin A1c is 8.4, and increase his Levemir from 5 units up to 8 units. 05/03/2018 Patient breathing keep improving., His little bit short of breath and wheezing today and his breathing became calmer. No chest pain or coughing.Metformin was discontinued went in the [facility] chronic kidney disease. Patient heparin drip was discontinued and started on Eliquis. Also he is on metoprolol and Lasix. Cardiology team R following the case. Objective - Vital Signs Vital signs: Vital Signs Temp 97.7 F 05/02/18 20:00 Pulse 97 05/03/18 12:00 Resp 20 05/03/18 12:00 BP 106/58 05/03/18 12:00 Pulse Ox 100 05/03/18 12:00 Intake & Output 05/02/18 05/03/18 05/03/18 18:59 06:59 18:59 Intake Total 540 480 Output Total 500 400 Balance 40 -400 480 Weight 85.5 kg 85.5 kg Intake: Oral 540 480 Output: Urine 500 400 Other: Voiding Method Toilet Urinal # Voids 1 0 # Bowel Movements 2 - Exam GENERAL: The patient is alert and oriented x3, not in any acute distress. Well developed, well nourished. HEENT: Pupils are round and equally reacting to light. EOMI. No scleral icterus. No conjunctival pallor. Normocephalic, atraumatic. No pharyngeal erythema. No thyromegaly. CARDIOVASCULAR: S1 and S2 present. No murmurs, rubs, or gallops. PULMONARY: Chest is clear to auscultation, no wheezing or crackles. ABDOMEN: Soft, nontender, nondistended, normoactive bowel sounds. No palpable organomegaly. MUSCULOSKELETAL: No joint swelling or deformity. EXTREMITIES: No cyanosis, clubbing, or pedal edema. NEUROLOGICAL: Gross neurological examination did not reveal any focal deficits. SKIN: No rashes. - Labs CBC & Chem 7: 05/03/18 05:19 05/03/18 05:19 Labs: Abnormal Lab Results - Last 24 Hours (Table) 05/02/18 05/02/18 05/03/18 Range/Units 16:41 20:17 05:19 RBC 3.16 L (4.30-5.90) m/uL Hgb 9.8 L (13.0-17.5) gm/dL Hct 30.9 L (39.0-53.0) % RDW 18.4 H (11.5-15.5) % BUN (9-20) mg/dL Creatinine (0.66-1.25) mg/dL POC Glucose (mg/dL) 272 H 180 H (75-99) mg/dL 05/03/18 05/03/18 Range/Units 05:19 11:42 RBC (4.30-5.90) m/uL Hgb (13.0-17.5) gm/dL Hct (39.0-53.0) % RDW (11.5-15.5) % BUN 46 H (9-20) mg/dL Creatinine 1.89 H (0.66-1.25) mg/dL POC Glucose (mg/dL) 261 H (75-99) mg/dL Assessment and Plan Assessment: a fib with RVR present on admission , new onset Chest tightness, rule out acute coronary syndrome upper resp infection , recent h/o congestvie heart failure history of coronary artery disease hypertension hyperlipidemia Diabetes Mellitus , type II Chronic kidney disease , stage III hypothyroidism hearing difficulty Plan: this is a pleasant 87 yo M , who present with new onset a fib with RVR, continue with diuretic , call cardiology consult , hold metformin and start levemir , check Hb A1c, c/w heparin drip, aspirin and metoprolol . Labs and medication were reviewed.. Continue same treatment. Continue with symptomatic treatment. Resume home medication. Monitor lytes and vitals. DVT and GI prophylaxis. Further recommendations of the clinical course of the patient DVT prophylaxis: Subcutaneous heparin GI Prophylaxis: Pepcid PT/OT: Pending Prognosis is guarded
[2018-05-03 16:36] LABS: Glucose,Whole Blood 137 mg/dL (75-99)
--- NOTE | 2018-05-03 16:39 | XR ---
EXAMINATION TYPE: XR chest 2V DATE OF EXAM: 05/03/2018 COMPARISON: 04/30/2018 HISTORY: Heart failure TECHNIQUE: Frontal and lateral views of the chest are obtained. FINDINGS: Heart and mediastinum are within normal limits. There is no heart failure. There is minima l blunting of the costophrenic angles. There are no hilar masses. There are chest leads. IMPRESSION: Minimal pleural reaction at the lung bases unchanged. No heart failure seen. No pulmonar y consolidation.
[2018-05-03] MEDS: FUROSEMIDE 40 MG TAB PO SCH (17:49)
[2018-05-03 20:30] LABS: Glucose,Whole Blood 263 mg/dL (75-99)
[2018-05-03] MEDS: SODIUM CHLORIDE 0.9% 1,000 ML IV SCH (20:40)
[2018-05-03] MEDS: ALLOPURINOL 100 MG TAB PO SCH (20:42)
[2018-05-03] MEDS: INSULIN DETEMIR (LEVEMIR) 100 UNIT/ML SYR SQ SCH (20:43)
[2018-05-03] MEDS: DONEPEZIL 10 MG TAB PO SCH (20:43)
[2018-05-03] MEDS: FOLIC ACID 1 MG TAB PO SCH (20:43)
[2018-05-03] MEDS: ATORVASTATIN 40 MG TAB PO SCH (20:43)
[2018-05-03] MEDS: DOXAZOSIN 4 MG TAB PO SCH (20:43)
[2018-05-04] MEDS: ALPRAZolam 0.5 MG TAB PO PRN ×2 (00:31→23:17)
[2018-05-04 05:56] LABS: Glucose,Whole Blood 123 mg/dL (75-99)
[2018-05-04] MEDS: INSULIN ASPART (NovoLOG) 100 UNIT/ML VIAL SQ SCH ×4 (06:06→21:21)
[2018-05-04 06:37] LABS: Anisocytosis Slight; Basophils % (A) 0 %; Eosinophils # (A) 0.2 k/uL (0-0.7); Eosinophils % (A) 3 %; HCT 28.5 % (39.0-53.0); Lymphocytes # (A) 1.1 k/uL (1.0-4.8); Lymphocytes % (A) 16 %; MCH 30.9 pg (25.0-35.0); MCHC 31.5 g/dL (31.0-37.0); MCV 98.1 fL (80.0-100.0); Macrocytosis Slight; Mean Platelet Volume 9.3; Monocytes # (A) 0.5 k/uL (0-1.0); Monocytes % (A) 7 %; Neutrophils # (A) 5.1 k/uL (1.3-7.7); Neutrophils % (A) 72 %; Platelet Count 173 k/uL (150-450); RDW 18.4 % (11.5-15.5)
[2018-05-04 06:44] LABS: Calcium 8.6 mg/dL (8.4-10.2); Potassium 3.8 mmol/L (3.5-5.1)
[2018-05-04] MEDS: PANTOPRAZOLE 40 MG TABLET PO SCH (09:07)
[2018-05-04] MEDS: GABAPENTIN 300 MG CAP PO SCH ×2 (09:07→20:19)
[2018-05-04] MEDS: FUROSEMIDE 40 MG TAB PO SCH ×2 (09:07→17:48)
[2018-05-04] MEDS: ISOSORBIDE MONONITRATE ER 60 MG TAB.ER.24H PO SCH (09:07)
[2018-05-04] MEDS: TAMSULOSIN 0.4 MG CAP.ER.24H PO SCH (09:08)
[2018-05-04] MEDS: LEVOTHYROXINE 75 MCG TAB PO SCH (09:08)
[2018-05-04] MEDS: APIXABAN 2.5 MG TABLET PO SCH ×2 (09:08→20:20)
[2018-05-04] MEDS: FERROUS SULFATE 325 MG TAB PO SCH ×2 (09:08→20:20)
[2018-05-04] MEDS: METOPROLOL TARTRATE 25 MG TAB PO SCH ×2 (09:14→20:19)
[2018-05-04] MEDS ORDERED: predniSONE 20 MG TAB PO STA (09:49)
--- NOTE | 2018-05-04 10:55 | XR ---
EXAMINATION TYPE: XR elbow complete LT DATE OF EXAM: 05/04/2018 COMPARISON: NONE HISTORY: Pain FINDINGS: Three views of the elbow demonstrate no pathologic joint effusion. The osseous structures are intact . There is no acute fracture or dislocation. There is hypertrophic changes involving the joint with narrowing. No erosive changes. Soft tissue edema suggested. IMPRESSION: 1. Arthropathy of the elbow joint with joint space narrowing but no definite erosive changes. Hypertr ophic spurring also noted.
[2018-05-04 11:37] LABS: Glucose,Whole Blood 188 mg/dL (75-99)
--- NOTE | 2018-05-04 12:42 | PN ---
PROGRESS NOTE This patient was admitted with new onset of atrial fibrillation and congestive cardiac failure. Patient is doing better. He is ambulating in the hallway with the help. He slept fairly well. The patient is afebrile. Heart rate is 90 per minute, blood pressure is 115/49 mmHg, oxygen saturation is normal. First and second heart sounds are heard. Lungs are clinically clear to auscultation and percussion. Patient's hemoglobin was 9.0. Electrolytes are normal. Creatinine is 1.85. IMPRESSION: The congestive heart failure is improving. We will discontinue the IV Lasix and put him on oral Lasix. MMODL / IJN: [id number] /
[2018-05-04] MEDS ORDERED: traMADol 50 MG TAB PO PRN (13:00)
[2018-05-04 16:47] LABS: Glucose,Whole Blood 288 mg/dL (75-99)
--- NOTE | 2018-05-04 19:21 | P.PN ---
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 Dutch Juares and follow up with his identification technician. who presents with dyspnea of one day duration , associated with some chest tightness ,central non radiating, also felt as dull at times as per daughter at bed side, which is mild pain and resolved now . pt gave history of common cold about 2-3 weeks ago when he was in [place]. he visited his pcp for his common cold last week who gave him nebulizor treatment and prednisone pack , and lowered his regular dose of lasix 80 mg BID to 40 mg BID because he was dehydrated as per family , his sugar was fluctuating between 100 and 500 , he has worening in his leg swelling on both sides he denies dizziness, syncope , no change in urine or bowel habits or fever. pt has chronic loose stool for one year since he had his gall bladder removed about one year ago on adission he was found to have new onset a fib with RVR, pt was started on heparin drip by ED team heart rate was 131 ,came down to 92, CBC and BMP were unremarkable , creatinine 1.7 which is close to his baseline. troponin is mildly elevated, UA is not suspicious for infection . EKG: A fib rate 117, CXR: mild pulmonary fibrosis. 05/01/2018 Today patient is not dyspneic with no chest pain. Cardiology has been evaluated the patient and they recommended to to switch Cardizem with beta william while getting IV Lasix. And the recommended echocardiogram and stress troponins. Vision currently is on IV heparin which is continued was possible switched to new oral anticoagulation upon discharge. Repeat troponin looks his stable at 0.112 and 0.119. She was started on metoprolol 25 mg twice a day and IV Lasix 40 mg twice a day. Patient is already on levothyroxine at 75 g per oral daily, however with check TSH level. 05/02/2018 Patient today feels a little better, although he still dyspneic. Patient has been evaluated by identification technician and patient continued to receive IV Lasix. TSH came back normal. Creatinine 1.7. Latest heart rate is 97. Labs reviewed creatinine is 1.8 which is close to baseline of 1.7-1.9, hemoglobin A1c is 8.4, and increase his Levemir from 5 units up to 8 units. 05/03/2018 Patient breathing keep improving., His little bit short of breath and wheezing today and his breathing became calmer. No chest pain or coughing.Metformin was discontinued went in the [facility] chronic kidney disease. Patient heparin drip was discontinued and started on Eliquis. Also he is on metoprolol and Lasix. Cardiology team R following the case. 05/04/18 Patient today breathing came back to normal or close to normal. No cough no chest pain. He is fully awake with no palpitation. However today he started complaining of from left elbow pain and swelling. X-ray was done of the left elbow shows arthropathy of the elbow joints with joint space narrowing but no definite erosive changes no pathologic joint effusion was demonstrated. Patient has history of gout, uric acid is 5.3 which is within normal limits and patient was started on a prednisone 40 mg for possible acute gouty attack. Pain management with Ultram. Patient showed partial improvement. If no improvement within 24-48 hours , then I would recommend orthopedic consultation to evaluate the patient. Objective - Vital Signs Vital signs: Vital Signs Temp 98 F 05/04/18 12:00 Pulse 124 H 05/04/18 16:00 Resp 16 05/04/18 16:00 BP 107/43 05/04/18 16:00 Pulse Ox 98 05/04/18 16:00 Intake & Output 05/04/18 05/04/18 05/05/18 06:59 18:59 06:59 Intake Total 480 Balance 480 Weight 86.5 kg Intake: Oral 480 Other: Voiding Method Toilet Toilet Urinal Urinal # Voids 1 - Exam GENERAL: The patient is alert and oriented x3, not in any acute distress. Well developed, well nourished. HEENT: Pupils are round and equally reacting to light. EOMI. No scleral icterus. No conjunctival pallor. Normocephalic, atraumatic. No pharyngeal erythema. No thyromegaly. CARDIOVASCULAR: S1 and S2 present. No murmurs, rubs, or gallops. PULMONARY: Chest is clear to auscultation, no wheezing or crackles. ABDOMEN: Soft, nontender, nondistended, normoactive bowel sounds. No palpable organomegaly. MUSCULOSKELETAL: No joint swelling or deformity. EXTREMITIES: No cyanosis, clubbing, or pedal edema. NEUROLOGICAL: Gross neurological examination did not reveal any focal deficits. SKIN: No rashes. - Labs CBC & Chem 7: 05/04/18 06:11 05/04/18 06:11 Labs: Abnormal Lab Results - Last 24 Hours (Table) 05/03/18 05/04/18 05/04/18 Range/Units 20:28 05:55 06:11 RBC 2.90 L (4.30-5.90) m/uL Hgb 9.0 L (13.0-17.5) gm/dL Hct 28.5 L (39.0-53.0) % RDW 18.4 H (11.5-15.5) % BUN (9-20) mg/dL Creatinine (0.66-1.25) mg/dL Glucose (74-99) mg/dL POC Glucose (mg/dL) 263 H 123 H (75-99) mg/dL 05/04/18 05/04/18 05/04/18 Range/Units 06:11 11:30 16:29 RBC (4.30-5.90) m/uL Hgb (13.0-17.5) gm/dL Hct (39.0-53.0) % RDW (11.5-15.5) % BUN 47 H (9-20) mg/dL Creatinine 1.85 H (0.66-1.25) mg/dL Glucose 104 H (74-99) mg/dL POC Glucose (mg/dL) 188 H 288 H (75-99) mg/dL Assessment and Plan Assessment: a fib with RVR present on admission , new onset Right elbow arthralgia, most likely gouty attack area versus others Chest tightness, rule out acute coronary syndrome upper resp infection , recent h/o congestvie heart failure history of coronary artery disease hypertension hyperlipidemia Diabetes Mellitus , type II Chronic kidney disease , stage III hypothyroidism hearing difficulty Plan: this is a pleasant 87 yo M , who present with new onset a fib with RVR, continue with diuretic , call cardiology consult , hold metformin and start levemir , check Hb A1c, c/w heparin drip, aspirin and metoprolol . Labs and medication were reviewed.. Continue same treatment. Continue with symptomatic treatment. Resume home medication. Monitor lytes and vitals. DVT and GI prophylaxis. Further recommendations of the clinical course of the patient DVT prophylaxis: Subcutaneous heparin GI Prophylaxis: Pepcid PT/OT: Pending Prognosis is guarded
[2018-05-04] MEDS: DOXAZOSIN 4 MG TAB PO SCH (20:20)
[2018-05-04] MEDS: ATORVASTATIN 40 MG TAB PO SCH (20:20)
[2018-05-04] MEDS: DONEPEZIL 10 MG TAB PO SCH (20:20)
[2018-05-04] MEDS: ALLOPURINOL 100 MG TAB PO SCH (20:20)
[2018-05-04] MEDS: FOLIC ACID 1 MG TAB PO SCH (20:20)
[2018-05-04 20:46] LABS: Glucose,Whole Blood 268 mg/dL (75-99)
[2018-05-04] MEDS: SODIUM CHLORIDE 0.9% 1,000 ML IV SCH (21:21)
[2018-05-04] MEDS: INSULIN DETEMIR (LEVEMIR) 100 UNIT/ML SYR SQ SCH (21:21)
[2018-05-05] MEDS: INSULIN ASPART (NovoLOG) 100 UNIT/ML VIAL SQ SCH ×3 (07:15→17:38)
[2018-05-05 07:20] LABS: Anisocytosis Slight; Basophils % (A) 0 %; Eosinophils # (A) 0.1 k/uL (0-0.7); Eosinophils % (A) 0 %; HCT 30.1 % (39.0-53.0); HGB 9.4 gm/dL (13.0-17.5); Lymphocytes # (A) 0.7 k/uL (1.0-4.8); Lymphocytes % (A) 6 %; MCH 30.9 pg (25.0-35.0); MCHC 31.4 g/dL (31.0-37.0); MCV 98.4 fL (80.0-100.0); Macrocytosis Slight; Mean Platelet Volume 8.8; Monocytes # (A) 0.6 k/uL (0-1.0); Monocytes % (A) 5 %; Neutrophils # (A) 9.5 k/uL (1.3-7.7); Neutrophils % (A) 87 %; Platelet Count 181 k/uL (150-450); RBC 3.06 m/uL (4.30-5.90); RDW 18.3 % (11.5-15.5); WBC 10.9 k/uL (3.8-10.6)
[2018-05-05 07:34] LABS: Calcium 8.7 mg/dL (8.4-10.2); Potassium 4.4 mmol/L (3.5-5.1)
[2018-05-05] MEDS ORDERED: predniSONE 20 MG TAB PO SCH (09:00)
[2018-05-05] MEDS: APIXABAN 2.5 MG TABLET PO SCH (09:07)
[2018-05-05] MEDS: FERROUS SULFATE 325 MG TAB PO SCH (09:08)
[2018-05-05] MEDS: FUROSEMIDE 40 MG TAB PO SCH ×2 (09:08→17:37)
[2018-05-05] MEDS: GABAPENTIN 300 MG CAP PO SCH (09:09)
[2018-05-05] MEDS: METOPROLOL TARTRATE 25 MG TAB PO SCH (09:10)
[2018-05-05 11:43] VITALS: BP 118/71; PULSE 91; RESP 16; TEMP 97.4
[2018-05-05 12:00] LABS: Glucose,Whole Blood 272 mg/dL (75-99)
[2018-05-05 12:01] LABS: Glucose,Whole Blood 222 mg/dL (75-99)
[2018-05-05] MEDS: PANTOPRAZOLE 40 MG TABLET PO SCH (12:09)
[2018-05-05] MEDS: LEVOTHYROXINE 75 MCG TAB PO SCH (12:09)
[2018-05-05] MEDS: TAMSULOSIN 0.4 MG CAP.ER.24H PO SCH (12:09)
[2018-05-05] MEDS: ISOSORBIDE MONONITRATE ER 60 MG TAB.ER.24H PO SCH (12:18)
--- NOTE | 2018-05-05 13:55 | P.PN ---
Subjective Progress Note Date: 05/05/18 This is an 87-year-old gentleman who follows with Dr. Cates in the office. He has a known history of coronary artery disease with prior stent placement, hypertension, chronic persistent atrial fibrillation, diabetes, hyperlipidemia, he states he was taken off all blood pressure medications about 45 years ago, hypothyroidism, chronic kidney disease, prostate disorder, who presents to the hospital on this admission with symptoms of chest tightness and discomfort with associated shortness of breath, one day duration. Approximately 3 weeks ago he was diagnosed with influenza while he was in [place], he was treated with nebulizer and a Medrol Dosepak. They also decrease his home dose of Lasix in half from 80 twice a day to 40 twice a day. Chest x-ray on admission here showed mild pulmonary fibrosis with minimal scarring and atelectasis at the left lung base. EKG on admission here showed atrial fibrillation with a moderately rapid ventricular response, occasional PVC and nonspecific ST-T wave changes, right bundle branch block pattern. Blood pressure on arrival here 134/80 with a heart rate in the 120s, 98% on room air, temperature 98.2. Blood pressure this morning 130/80 with a heart rate in the 60s, 99% on 2 L of oxygen. White blood cell count 7.0, hemoglobin 9.5, platelet count 203. Sodium 139, potassium 4.0, BUN 50 on admission and creatinine 1.7, 52 and 1.6 this morning. Magnesium level 2.2. Troponin 0.112, BNP level 8160, TSH 1.6. At the time of my examination this morning, the patient is currently chest pain-free. Breathing overall is stable. 05/02/2018 Patient seen and examined today, the time of my examination he sitting up in his chair at bedside, feels well overall. He does state that last evening he had an episode where he felt all anxious inside, he felt some mild tightness in the chest. Blood pressure and heart rate stable. This morning's blood pressure is 142/60 with a heart rate of 90, 96% on room air. White blood cell count 6.8, hemoglobin 9.7, platelet count 169. Sodium 140, potassium 3.6, BUN 45 and creatinine 1.7. Echocardiogram with Doppler study remains pending. We will continue with current dose of Lasix for 24 hours. Continue to monitor intake and output along with daily weights and daily lytes BUN and creatinine. 05/03/2018 Patient seen and examined today, overall he states he is feeling significantly better, still has some mild shortness of breath. Heart rate today in the 80s, his weight is down 0.5 kg. Blood pressure 106/60, 100% on room air. BUN 46 and creatinine 1.8. We will obtain a repeat chest x-ray today. Continue IV Lasix for today and from tomorrow start the patient on oral diuretics. 05/05/2018 Patient was seen and examined this morning, doing well overall. Anticipating possible discharge home today. Blood pressure 118/70 with a heart rate in 80s to 90s, 98% on room air. White blood cell count 10.9, hemoglobin 9.4, platelet count 181. Sodium 135, potassium 4.4, BUN 51 and creatinine 1.8. Objective - Vital Signs Vital signs: Vital Signs Temp 97.4 F L 05/05/18 11:43 Pulse 91 05/05/18 11:43 Resp 16 05/05/18 11:43 BP 118/71 05/05/18 11:43 Pulse Ox 98 05/05/18 11:43 Intake & Output 05/04/18 05/05/18 05/05/18 18:59 06:59 18:59 Intake Total 480 240 Balance 480 240 Weight 86.9 kg Intake: Oral 480 240 Other: Voiding Method Toilet Toilet Toilet Urinal Urinal # Voids 1 1 # Bowel Movements 1 - Exam PHYSICAL EXAMINATION: GENERAL: 87-year-old gentleman in no acute distress at the time of my examination HEENT: Head is atraumatic, normocephalic. Pupils equal, round. Sclera anicteric. Conjunctiva are clear. Mucous membranes of the mouth are moist. Neck is supple. There is elevated jugular venous pressure. No carotid bruit is heard. HEART EXAMINATION: Heart S1 and S2 irregularly irregular a systolic ejection murmur is heard CHEST EXAMINATION: Lungs reveal crackles bilaterally with improvement in air entry to the bases. ABDOMEN: Soft, nontender. Bowel sounds are heard. No organomegaly noted. EXTREMITIES: 2+ peripheral pulses with evidence of peripheral edema and no calf tenderness noted. NEUROLOGIC patient is awake, alert and oriented 3 . - Labs CBC & Chem 7: 05/05/18 06:59 05/05/18 06:59 Labs: Abnormal Lab Results - Last 24 Hours (Table) 05/04/18 05/04/18 05/05/18 Range/Units 16:29 20:44 05:56 WBC (3.8-10.6) k/uL RBC (4.30-5.90) m/uL Hgb (13.0-17.5) gm/dL Hct (39.0-53.0) % RDW (11.5-15.5) % Neutrophils # (1.3-7.7) k/uL Lymphocytes # (1.0-4.8) k/uL Sodium (137-145) mmol/L BUN (9-20) mg/dL Creatinine (0.66-1.25) mg/dL Glucose (74-99) mg/dL POC Glucose (mg/dL) 288 H 268 H 272 H (75-99) mg/dL 05/05/18 05/05/18 05/05/18 Range/Units 06:59 06:59 11:22 WBC 10.9 H (3.8-10.6) k/uL RBC 3.06 L (4.30-5.90) m/uL Hgb 9.4 L (13.0-17.5) gm/dL Hct 30.1 L (39.0-53.0) % RDW 18.3 H (11.5-15.5) % Neutrophils # 9.5 H (1.3-7.7) k/uL Lymphocytes # 0.7 L (1.0-4.8) k/uL Sodium 135 L (137-145) mmol/L BUN 51 H (9-20) mg/dL Creatinine 1.81 H (0.66-1.25) mg/dL Glucose 247 H (74-99) mg/dL POC Glucose (mg/dL) 222 H (75-99) mg/dL Assessment and Plan Plan: Assessment and plan #1 symptoms of chest tightness with associated shortness of breath, evidence of mild congestive cardiac failure, diastolic acute on chronic . Could also be secondary to atrial fibrillation with rapid ventricular response which appears to be of new onset for this patient. Mild abnormality in troponin, rule out acute coronary syndrome. #2 known history of coronary artery disease with prior stenting of the LAD and RCA in the past #3 hypertension #4 diabetes #5 hyperlipidemia #6 chronic kidney disease #7 hypothyroidism Plan From cardiology's perspective, IV Lasix will be discontinued, patient placed on 40 mg of Lasix by mouth twice a day. He may be able to be discharged home once cleared by primary and we will follow him up in the office as an outpatient. DNP note has been reviewed, I agree with a documented findings and plan of care. Patient was seen and examined.
[2018-05-05 16:24] LABS: Glucose,Whole Blood 292 mg/dL (75-99)
--- NOTE | 2018-05-05 17:42 | P.DS ---
Providers Date of admission: 04/30/18 19:53 Expected date of discharge: 05/05/18 Attending physician: Quang Ramirez MD Consults: 04/30/18 17:53 Consult Physician Routine Consulting Provider: Cherelle Cates Consult Reason/Comments: new onset afib Do you want consulting provider notified?: Yes Primary care physician: [facility] Course: 87-year-old gentleman who follows with Dr. Cates in the office. He has a known history of coronary artery disease with prior stent placement, hypertension, chronic persistent atrial fibrillation, diabetes, hyperlipidemia, he states he was taken off all blood pressure medications about 45 years ago, hypothyroidism, chronic kidney disease, prostate disorder, who presents to the hospital on this admission with symptoms of chest tightness and discomfort with associated shortness of breath, one day duration. Approximately 3 weeks ago he was diagnosed with influenza while he was in [place], he was treated with nebulizer and a Medrol Dosepak. They also decrease his home dose of Lasix in half from 80 twice a day to 40 twice a day. Chest x-ray on admission here showed mild pulmonary fibrosis with minimal scarring and atelectasis at the left lung base. EKG on admission here showed atrial fibrillation with a moderately rapid ventricular response, occasional PVC and nonspecific ST-T wave changes, right bundle branch block pattern. Blood pressure on arrival here 134/ 80 with a heart rate in the 120s, 98% on room air, temperature 98.2. Blood pressure this morning 130/80 with a heart rate in the 60s, 99% on 2 L of oxygen. White blood cell count 7.0, hemoglobin 9.5, platelet count 203. Sodium 139, potassium 4.0, BUN 50 on admission and creatinine 1.7, 52 and 1.6 this morning. Magnesium level 2.2. Troponin 0.112, BNP level 8160, TSH 1.6. At the time of my examination this morning, the patient is currently chest pain- free. Breathing overall is stable. 05/02/2018 Patient seen and examined today, the time of my examination he sitting up in his chair at bedside, feels well overall. He does state that last evening he had an episode where he felt all anxious inside, he felt some mild tightness in the chest. Blood pressure and heart rate stable. This morning's blood pressure is 142/60 with a heart rate of 90, 96% on room air. White blood cell count 6.8, hemoglobin 9.7, platelet count 169. Sodium 140, potassium 3.6, BUN 45 and creatinine 1.7. Echocardiogram with Doppler study remains pending. We will continue with current dose of Lasix for 24 hours. Continue to monitor intake and output along with daily weights and daily lytes BUN and creatinine. 05/03/2018 Patient seen and examined today, overall he states he is feeling significantly better, still has some mild shortness of breath. Heart rate today in the 80s, his weight is down 0.5 kg. Blood pressure 106/60, 100% on room air. BUN 46 and creatinine 1.8. We will obtain a repeat chest x-ray today. Continue IV Lasix for today and from tomorrow start the patient on oral diuretics. 05/05/2018 Patient was seen and examined this morning, doing well overall. Anticipating possible discharge home today. Blood pressure 118/70 with a heart rate in 80s to 90s, 98% on room air. White blood cell count 10.9, hemoglobin 9.4, platelet count 181. Sodium 135, potassium 4.4, BUN 51 and creatinine 1.8. Patient is switched to oral Lasix 40 mg twice a day and is planned to be discharged home on current medications and follow-up with cardiology service in 1-2 weeks Patient Condition at Discharge: Fair Plan - Discharge Summary Discharge Rx Participant: No New Discharge Prescriptions: New Apixaban [Eliquis] 2.5 mg PO BID #30 tablet Atorvastatin [Lipitor] 40 mg PO HS #30 tab Metoprolol Tartrate [Lopressor] 25 mg PO BID #30 tab predniSONE See Taper PO DIRECTED #20 tab Continue Gabapentin [Neurontin] 300 mg PO DAILY Aspirin 81 mg PO DAILY@1200 Tamsulosin [Flomax] 0.4 mg PO DAILY@1200 Simvastatin [Zocor] 40 mg PO 1200 Levothyroxine Sodium [Synthroid] 75 mcg PO DAILY@1200 Furosemide [Lasix] 40 mg PO BID Allopurinol [Zyloprim] 300 mg PO HS Donepezil [Aricept] 10 mg PO HS Ferrous Sulfate [Iron (65 MG Elemental)] 325 mg PO BID Isosorbide Mononitrate [Imdur] 120 mg PO DAILY Multivit-Min/FA/Lycopen/Lutein [Centrum Silver Tablet] 1 tab PO DAILY Folic Acid 1 mg PO HS Terazosin [Hytrin] 5 mg PO HS Magnesium Oxide [Mag-Ox] 400 mg PO BID Ondansetron [Zofran] 4 mg PO Q8HR PRN PRN Reason: Nausea Insulin Aspart Protam & Aspart [NovoLOG MIX 70-30 Flexpen] See Protocol SQ AC -BID Fluticasone Nasal Triangle [Flonase Nasal Triangle] 2 spray EA NOSTRIL DAILY PRN PRN Reason: Allergy Symptoms metFORMIN HCL 1,000 mg PO BID Omeprazole [PriLOSEC] 10 mg PO DAILY@1200 Gabapentin [Neurontin] 600 mg PO HS Epoetin Garrett [Procrit] 10,000 unit INJ Q7D PRN PRN Reason: ANEMIA Discharge Medication List Aspirin 81 mg PO DAILY@1200 08/31/13 [History] Gabapentin [Neurontin] 300 mg PO DAILY 08/31/13 [History] Simvastatin [Zocor] 40 mg PO 1200 08/31/13 [History] Tamsulosin [Flomax] 0.4 mg PO DAILY@1200 08/31/13 [History] Furosemide [Lasix] 40 mg PO BID 12/17/13 [History] Levothyroxine Sodium [Synthroid] 75 mcg PO DAILY@1200 12/17/13 [History] Allopurinol [Zyloprim] 300 mg PO HS 03/10/14 [History] Donepezil [Aricept] 10 mg PO HS 11/13/15 [History] Ferrous Sulfate [Iron (65 MG Elemental)] 325 mg PO BID 11/13/15 [History] Isosorbide Mononitrate [Imdur] 120 mg PO DAILY 11/13/15 [History] Multivit-Min/FA/Lycopen/Lutein [Centrum Silver Tablet] 1 tab PO DAILY 11/13/15 [ History] Folic Acid 1 mg PO HS 01/18/17 [History] Magnesium Oxide [Mag-Ox] 400 mg PO BID 05/23/17 [History] Terazosin [Hytrin] 5 mg PO HS 05/23/17 [History] Epoetin Garrett [Procrit] 10,000 unit INJ Q7D PRN 04/30/18 [History] Fluticasone Nasal Triangle [Flonase Nasal Triangle] 2 spray EA NOSTRIL DAILY PRN 04/30 [History] Gabapentin [Neurontin] 600 mg PO HS 04/30/18 [History] Insulin Aspart Protam & Aspart [NovoLOG MIX 70-30 Flexpen] See Protocol SQ AC- BID 04/30/18 [History] Omeprazole [PriLOSEC] 10 mg PO DAILY@1200 04/30/18 [History] Ondansetron [Zofran] 4 mg PO Q8HR PRN 04/30/18 [History] metFORMIN HCL 1,000 mg PO BID 04/30/18 [History] Apixaban [Eliquis] 2.5 mg PO BID #30 tablet 05/05/18 [Rx] Atorvastatin [Lipitor] 40 mg PO HS #30 tab 05/05/18 [Rx] Metoprolol Tartrate [Lopressor] 25 mg PO BID #30 tab 05/05/18 [Rx] predniSONE See Taper PO DIRECTED #20 tab 05/05/18 [Rx] Follow up Appointment(s)/Referral(s): Cherelle Cates MD [STAFF PHYSICIAN] - 05/08/18 11:15 am Mor Lara MD [Primary Care Provider] - 05/09/18 2:00 pm [facility], [NON-STAFF] - Patient Instructions/Handouts: Heart Failure (DC), A-fib (Atrial Fibrillation) (ED), Heart Healthy Diet (DC), Safe Use of Anticoagulants (ED) Discharge Disposition: HOME WITH HOME HEALTH SERVICES
== END 2018-05-05 18:42 | disposition home health service (06) | DRG 308 ==
LOC: EC 16:07 → 3SCARD 19:53
PROVIDERS: ADMIT Internal Medicine; ATTEND Internal Medicine
DX: I48.1 Persistent atrial fibrillation (principal); I50.33 Acute on chronic diastolic (congestive) heart failure; I13.0 Hypertensive heart and chronic kidney disease with heart failure and stage 1 through stage 4 chronic kidney disease, or unspecified chronic kidney disease; E11.22 Type 2 diabetes mellitus with diabetic chronic kidney disease; J84.10 Pulmonary fibrosis, unspecified; E86.0 Dehydration; I45.10 Unspecified right bundle-branch block; N18.3 Chronic kidney disease, stage 3 (moderate); I25.10 Atherosclerotic heart disease of native coronary artery without angina pectoris; R74.8 Abnormal levels of other serum enzymes; N40.0 Benign prostatic hyperplasia without lower urinary tract symptoms; K21.9 Gastro-esophageal reflux disease without esophagitis; H91.90 Unspecified hearing loss, unspecified ear; E78.5 Hyperlipidemia, unspecified; M19.90 Unspecified osteoarthritis, unspecified site; M10.9 Gout, unspecified; E03.9 Hypothyroidism, unspecified; F41.9 Anxiety disorder, unspecified; I83.90 Asymptomatic varicose veins of unspecified lower extremity; F32.9 Major depressive disorder, single episode, unspecified; Z79.82 Long term (current) use of aspirin; Z79.899 Other long term (current) drug therapy; Z79.890 Hormone replacement therapy; Z79.84 Long term (current) use of oral hypoglycemic drugs; Z96.653 Presence of artificial knee joint, bilateral; Z96.641 Presence of right artificial hip joint; Z95.5 Presence of coronary angioplasty implant and graft; Z90.49 Acquired absence of other specified parts of digestive tract; Z82.49 Family history of ischemic heart disease and other diseases of the circulatory system; Z80.9 Family history of malignant neoplasm, unspecified
CPT/HCPCS: 36415; 71046; 80048; 80053; 81003; 82550; 82553; 83036; 83735; 83880; 84443; 84484; 84550; 85025; 85610; 85730; 87502; 93005; 93306; 94760; 96365; 96366; 96376; 99285

== ENCOUNTER 2018-05-23 13:14 | Inpatient (IN) | payer MEDICARE ==
[2018-05-23] MEDS ORDERED: ONDANSETRON 4 MG/2 ML VIAL IVP PRN (21:05)
[2018-05-23 21:29] LABS: Glucose,Whole Blood 186 mg/dL (75-99)
[2018-05-23] MEDS: ATORVASTATIN 40 MG TAB PO SCH (22:05)
[2018-05-23] MEDS: APIXABAN 2.5 MG TABLET PO SCH (22:05)
[2018-05-23] MEDS: ALPRAZolam 0.25 MG TAB PO SCH (22:05)
[2018-05-23] MEDS: FUROSEMIDE 10 MG/ML 2 ML VIAL IV SCH (22:05)
[2018-05-23] MEDS: INSULIN ASPART (NovoLOG) 100 UNIT/ML VIAL SQ SCH (22:05)
[2018-05-23] MEDS: DONEPEZIL 10 MG TAB PO SCH (22:05)
[2018-05-24 06:07] LABS: Glucose,Whole Blood 129 mg/dL (75-99)
[2018-05-24] MEDS: INSULIN ASPART (NovoLOG) 100 UNIT/ML VIAL SQ SCH ×4 (06:10→21:42)
[2018-05-24] MEDS: APIXABAN 2.5 MG TABLET PO SCH ×2 (06:17→17:33)
[2018-05-24] MEDS: MAGNESIUM OXIDE 400 MG TAB PO SCH ×2 (06:17→17:33)
[2018-05-24] MEDS: ALPRAZolam 0.25 MG TAB PO SCH ×2 (06:17→21:41)
[2018-05-24] MEDS: METOPROLOL TARTRATE 25 MG TAB PO SCH ×2 (06:18→17:33)
[2018-05-24] MEDS: ISOSORBIDE MONONITRATE ER 60 MG TAB.ER.24H PO SCH (06:18)
[2018-05-24 07:04] LABS: Calcium 8.7 mg/dL (8.4-10.2); Potassium 3.7 mmol/L (3.5-5.1)
[2018-05-24 07:12] LABS: Anisocytosis Slight; Basophils % (A) 0 %; Eosinophils # (A) 0.2 k/uL (0-0.7); Eosinophils % (A) 4 %; HCT 28.1 % (39.0-53.0); HGB 9.4 gm/dL (13.0-17.5); Hypochromasia Slight; Lymphocytes # (A) 1.1 k/uL (1.0-4.8); Lymphocytes % (A) 25 %; MCH 32.5 pg (25.0-35.0); MCHC 33.3 g/dL (31.0-37.0); MCV 97.8 fL (80.0-100.0); Macrocytosis Slight; Mean Platelet Volume 7.8; Monocytes # (A) 0.3 k/uL (0-1.0); Monocytes % (A) 7 %; Neutrophils # (A) 2.6 k/uL (1.3-7.7); Neutrophils % (A) 62 %; Platelet Count 194 k/uL (150-450); RBC 2.88 m/uL (4.30-5.90); RDW 18.6 % (11.5-15.5); WBC 4.1 k/uL (3.8-10.6)
--- NOTE | 2018-05-24 09:05 | XR ---
EXAMINATION TYPE: XR chest 1V portable DATE OF EXAM: 05/24/2018 COMPARISON: 05/03/2018 HISTORY: Shortness of breath TECHNIQUE: Single frontal view of the chest is obtained. FINDINGS: Bilateral consolidation and small effusion. Interstitial pattern noted with cardiomegaly. Diffuse osteopenia. No pneumothorax. IMPRESSION: Bilateral infiltrate and small effusion. Underlying COPD noted. Correlate for mild CHF o therwise consider pneumonia.
[2018-05-24] MEDS: FUROSEMIDE 10 MG/ML 2 ML VIAL IV SCH ×2 (09:27→20:41)
--- NOTE | 2018-05-24 09:52 | P.CRDCN ---
History of Present Illness Consult date: 05/24/18 Requesting physician: Jatinder Dawn Consult reason: congestive heart failure Chief complaint: Diarrhea, weakness History of present illness: This is an 87-year-old gentleman who follows with Dr. Cates in the office. He has a known history of coronary artery disease with prior stent placement, hypertension, chronic persistent atrial fibrillation, diabetes, hyperlipidemia, hypothyroidism, chronic kidney disease, prostate disorder, who was just recently discharged from the hospital approximately 2 weeks ago. According to the patient, he had been having several episodes of diarrhea stools, was feeling extremely weak, his daughter brought him to [facility] and subsequently the patient was transferred here for further evaluation and treatment. Patient states he's been having diarrhea stools and stomach cramping since early Tuesday denies any nausea or vomiting. Overall, the patient states that his breathing has been stable, he's not had any chest discomfort, did have some peripheral edema, however improved from his recent admission here according to him. Laboratory data was performed at [place], BNP level 7260, sodium 136, potassium 3.9, BUN 55 and creatinine 2.4. AST 31, ALT 22, alk phos 112, total bilirubin 0.3, white blood cell count 5.2, hemoglobin 9.6, hematocrit 30.3 and platelets 209. Troponin 0.033. Blood pressure 120/70 with a heart rate in the 90s. Laboratory data reviewed here, white blood cell count 4.1, hemoglobin 9.4, patient has a known history of anemia, hemoglobin runs in that range. He does take iron at home. Sodium 138, potassium 3.7, BUN 59 and creatinine 2.1. Patient has known kidney disease, his creatinine at time of discharge on May 05 1.8. BNP level here 6390. BNP on most recent visit was 8160. CT of the head did not reveal any acute intracranial hemorrhage or midline shift, chest x-ray showed minimal interstitial edema and bibasilar atelectasis. EKG performed at [facility] showed atrial fibrillation with a right bundle branch block pattern. Echocardiogram with Doppler study was performed which revealed an ejection fraction of 45-50% mild to moderate mitral regurgitation. Blood pressure this morning 108/60 with a heart rate in the 80s to 90s, 95% on room air. Currently the patient is on Eliquis 2-1/2 twice a day, Lipitor 40, Lasix 20 IV twice a day, Imdur 120 daily, metoprolol 25 mg one tablet by mouth twice a day. At the time of my examination this morning, patient states that he urinated a significant amount through the night last night, he has a trace to 1+ bilateral peripheral edema. We will repeat a chest x-ray here. Past Medical History Past Medical History: Coronary Artery Disease (CAD), Heart Failure, Diabetes Mellitus, GERD/Reflux, Hearing Disorder / Deafness, Hyperlipidemia, Hypertension, Musculoskeletal Disorder, Osteoarthritis (OA), Prostate Disorder, Renal Disease, Thyroid Disorder Additional Past Medical History / Comment(s): ANEMIA; SHORTNESS OF BREATH W/ ACTIVITY. SWELLING IN LOWER EXTREMITIES, VARICOSE VEINS. ENLARGED PROSTATE. GOUT. MULT LGE MOLES, TOM BACK. family states stage 3 kidney disease History of Any Multi-Drug Resistant Organisms: None Reported Past Surgical History: Back Surgery, Heart Catheterization With Stent, Hernia Repair, Joint Replacement, Orthopedic Surgery Additional Past Surgical History / Comment(s): CARPAL TUNNEL, ROTATOR CUFF REPAIR, PETE KNEE REPLACEMENT, has Rods/ CAGE in his back. Right Hip replacement. LAP REDUCTION/REPAIR HIATAL HERNIA 02/25/17. Past Anesthesia/Blood Transfusion Reactions: No Reported Reaction Date of Last Stent Placement:: 2006 Past Psychological History: Anxiety, Depression Additional Psychological History / Comment(s): MILD Smoking Status: Never smoker Past Alcohol Use History: Rare Past Drug Use History: None Reported - Past Family History Sister(s) Family Medical History: Cancer Brother(s) Family Medical History: Cancer Father Family Medical History: Cancer Additional Family Medical History / Comment(s): . Mother Family Medical History: Congestive Heart Failure (CHF) Medications and Allergies Home Medications Medication Instructions Recorded Confirmed Type Gabapentin [Neurontin] 300 mg PO DAILY@0700 08/31/13 05/23/18 History Tamsulosin [Flomax] 0.4 mg PO DAILY@1200 08/31/13 05/23/18 History Furosemide [Lasix] 80 mg PO DAILY@0700 12/17/13 05/23/18 History Levothyroxine Sodium [Synthroid] 75 mcg PO DAILY@1200 12/17/13 05/23/18 History Allopurinol [Zyloprim] 300 mg PO HS@2200 03/10/14 05/23/18 History Donepezil [Aricept] 10 mg PO HS@2200 11/13/15 05/23/18 History Ferrous Sulfate [Iron (65 MG 325 mg PO BID@0700,1800 11/13/15 05/23/18 History Elemental)] Isosorbide Mononitrate [Imdur] 120 mg PO DAILY@0700 11/13/15 05/23/18 History Multivit-Min/FA/Lycopen/Lutein 1 tab PO DAILY@0700 11/13/15 05/23/18 History [Centrum Silver Tablet] Folic Acid 1 mg PO AC-SUPPER@1800 01/18/17 05/23/18 History Terazosin [Hytrin] 5 mg PO HS@219905/23/17 05/23/18 History Epoetin Garrett [Procrit] 10,000 unit INJ Q7D PRN 04/30/18 05/23/18 History Gabapentin [Neurontin] 600 mg PO HS@219904/30/18 05/23/18 History Insulin Aspart Protam & Aspart See Protocol SQ AC-BID 04/30/18 05/23/18 History [NovoLOG MIX 70-30 Flexpen] Omeprazole [PriLOSEC] 10 mg PO DAILY@1200 04/30/18 05/23/18 History Ondansetron [Zofran] 4 mg PO BID 04/30/18 05/23/18 History metFORMIN HCL 1,000 mg PO BID@0700,2200 04/30/18 05/23/18 History ALPRAZolam [Xanax] 0.25 mg PO BID@0700,2200 05/23/18 05/23/18 History Apixaban [Eliquis] 2.5 mg PO BID@0700,1800 05/23/18 05/23/18 History Atorvastatin [Lipitor] 40 mg PO HS@0 05/23/18 05/23/18 History Furosemide [Lasix] 40 mg PO DAILY@1200 05/23/18 05/23/18 History Magnesium Oxide [Mag-Ox] 250 mg PO BID@0700,1800 05/23/18 05/23/18 History Metoprolol Tartrate [Lopressor] 25 mg PO BID@0700,1800 05/23/18 05/23/18 History Allergies Allergy/AdvReac Type Severity Reaction Status Date / Time baclofen Allergy Severe Unknown Verified 05/23/18 19:34 morphine Allergy Nausea & Verified 05/23/18 19:34 Vomiting sulfamethoxazole Allergy Rash/Hives Verified 05/23/18 19:34 [From Bactrim] trimethoprim [From Bactrim] Allergy Rash/Hives Verified 05/23/18 19:34 cow hair Allergy Anaphylaxis Uncoded 04/30/18 16:15 Physical Exam Vitals: Vital Signs Temp Pulse Resp BP Pulse Ox 05/24/18 04:00 96.4 F L 98 16 108/65 95 05/24/18 03:48 20 05/24/18 00:00 97.8 F 85 20 135/74 98 05/23/18 20:00 98.3 F 89 20 129/92 98 05/23/18 18:20 98.1 F 85 18 120/69 98 Intake and Output 05/23/18 05/24/18 05/24/18 22:59 06:59 14:59 Intake Total 180 150 Output Total 300 1650 Balance -120 -1500 Intake: Oral 180 150 Output: Urine 300 1650 Other: Voiding Method Toilet Toilet Urinal Urinal # Voids 1 1 Weight 90.378 kg 89 kg PHYSICAL EXAMINATION: GENERAL: 87-year-old gentleman in no acute distress at the time of my examination HEENT: Head is atraumatic, normocephalic. Pupils equal, round. Sclera anicteric. Conjunctiva are clear. Mucous membranes of the mouth are moist. Neck is supple. There is no elevated jugular venous pressure. No carotid bruit is heard. HEART EXAMINATION: Heart S1 and S2 irregularly irregular a systolic ejection murmur is heard CHEST EXAMINATION: Lungs reveal crackles bilaterally ABDOMEN: Soft, nontender. Bowel sounds are heard. No organomegaly noted. EXTREMITIES: 2+ peripheral pulses with trace to 1+ evidence of peripheral edema and no calf tenderness noted. NEUROLOGIC patient is awake, alert and oriented 3 . Results 05/24/18 06:24 05/24/18 06:24 CBC 05/24/18 Range/Units 06:24 WBC 4.1 (3.8-10.6) k/uL RBC 2.88 L (4.30-5.90) m/uL Hgb 9.4 L (13.0-17.5) gm/dL Hct 28.1 L (39.0-53.0) % Plt Count 194 (150-450) k/uL Comprehensive Metabolic Panel 05/24/18 Range/Units 06:24 Sodium 138 (137-145) mmol/L Potassium 3.7 (3.5-5.1) mmol/L Chloride 103 (98-107) mmol/L Carbon Dioxide 28 (22-30) mmol/L BUN 59 H (9-20) mg/dL Creatinine 2.14 H (0.66-1.25) mg/dL Glucose 110 H (74-99) mg/dL Calcium 8.7 (8.4-10.2) mg/dL Current Medications Generic Name Dose Route Start Last Admin Trade Name Freq PRN Reason Stop Dose Admin Alprazolam 0.25 mg 05/23/18 22:00 05/24/18 06:17 Xanax PO 0.25 mg BID@0700,2200 ERNST Administration Apixaban 2.5 mg 05/23/18 21:00 05/24/18 06:17 Eliquis PO 2.5 mg BID@0700,1800 [facility] Administration Atorvastatin Calcium 40 mg 05/23/18 22:00 05/23/18 22:05 Lipitor PO 40 mg HS@2200 ERNST Administration Donepezil HCl 10 mg 05/23/18 22:00 05/23/18 22:05 Aricept PO 10 mg HS@2200 ERNST Administration Furosemide 20 mg 05/23/18 21:15 05/23/18 22:05 Lasix IV 20 mg Q12HR ERNST Administration Insulin Aspart 0 unit 05/23/18 21:15 05/24/18 06:10 Novolog SQ Not Given [facility] Protocol Isosorbide Mononitrate 120 mg 05/24/18 07:00 05/24/18 06:18 Imdur PO 120 mg DAILY@0700 [facility] Administration Levothyroxine Sodium 75 mcg 05/24/18 12:00 Synthroid PO DAILY@1200 ERNST Magnesium Oxide 200 mg 05/24/18 07:00 05/24/18 06:17 Mag-Ox PO 200 mg BID@0700,1800 [facility] Administration Metoprolol Tartrate 25 mg 05/24/18 07:00 05/24/18 06:18 Lopressor PO 25 mg BID@0700,1800 [facility] Administration Ondansetron HCl 4 mg 05/23/18 21:05 Zofran IVP Q6HR PRN Nausea And Vomiting Pantoprazole Sodium 40 mg 05/24/18 12:00 Protonix PO DAILY@1200 ERNST Tamsulosin HCl 0.4 mg 05/24/18 12:00 Flomax PO DAILY@1200 ERNST Intake and Output 05/23/18 05/24/18 05/24/18 22:59 06:59 14:59 Intake Total 180 150 Output Total 300 1650 Balance -120 -1500 Intake: Oral 180 150 Output: Urine 300 1650 Other: Voiding Method Toilet Toilet Urinal Urinal # Voids 1 1 Weight 90.378 kg 89 kg 05/24/18 06:24 05/24/18 06:24 EKG Interpretations (text) EKG shows atrial fibrillation with a right bundle branch block pattern Assessment and Plan Plan: Assessment and plan #1 diarrhea with evidence of worsening renal failure #2 known history of coronary artery disease with prior stenting of the LAD and RCA in the past #3 hypertension #4 diabetes #5 hyperlipidemia #6 chronic kidney disease #7 hypothyroidism #8 diastolic congestive heart failure acute on chronic #9 chronic persistent A. fib on Eliquis for anticoagulation Plan Patient just recently had an echo performed in April, we will not repeat an echo on this admission. Continue current dose of IV Lasix as well as the current medications. Further recommendations to follow. DNP note has been reviewed, I agree with a documented findings and plan of care. Patient was seen and examined.
[2018-05-24 11:20] LABS: Glucose,Whole Blood 358 mg/dL (75-99)
[2018-05-24] MEDS: LEVOTHYROXINE 75 MCG TAB PO SCH (12:38)
[2018-05-24] MEDS: TAMSULOSIN 0.4 MG CAP.ER.24H PO SCH (12:42)
[2018-05-24] MEDS: PANTOPRAZOLE 40 MG TABLET PO SCH (12:42)
[2018-05-24 14:22] VITALS: BMI 34.7
[2018-05-24 16:25] LABS: Glucose,Whole Blood 94 mg/dL (75-99)
--- NOTE | 2018-05-24 16:26 | P.HPIM ---
History of Present Illness H&P Date: 05/24/18 Chief Complaint: Shortness of breath and diarrhea Patient is a 87-year-old male with a known history of coronary artery disease status post stent placement, hypertension, CHF, chronic persistent atrial fibrillation, diabetes type 2, hypothyroidism and osteoarthritis was initially presented to [facility] with complaints of diarrhea for the past 4 days prior to admission and generalized weakness. Patient is having diarrhea with loose stools and cramping abdominal pain since last Tuesday along with nausea and vomiting. Patient also having slightly increased leg swelling and shortness of breath. Patient was admitted to the [facility] and was monitored o vernight. Patient was found to have elevated creatinine level and along with CHF with BNP level 7260. Patient was given Lasix and improvement in chest x-ray the following day. Patient is also on anticoagulation due to chronic atrial fibrillation. Hemoglobin level was 9.6 on admission and her hemoglobin slightly dropped on the following day at 9.2. Patient was eventually transferred to [facility] for cardiac and nephrology evaluation. FOBT was positive at the time. Patient was recently discharged from the hospital about 2 weeks ago. BUN 55, Creatinine 2.4 and WBC count 5.2 and hemoglobin 9.6. Troponin 0.033. Current BNP level is 6390 Creatinine was 1.[address] head showed no acute intracranial process. chest x-ray showed bilateral infiltrate and small effusion. Underlying COPD noted. Correlate for mild CHF otherwise consider pneumonia. EKG showed atrial fibrillation with right bundle branch block pattern. Recent echocardiogram showed ejection fraction 45-50% with mild to moderate mitral regurgitation. Patient denied any diarrhea today. Patient did have more formed stool today. Review of Systems Constitutional: Patient denies any fever or chills . No generalized weakness or weight loss. Abdomen: Patient denied nausea vomiting and diarrhea and abdominal pain. Cardiovascular: Patient denies any chest pain or short of breath no palpitations. Respiratory: patient denied any cough is from production. No shortness of breath Neurologic: Patient denied any numbness or tingling headache. Musculoskeletal: Patient denies any complaints of joint swelling or deformity. Skin: Negative Psychiatric: Negative Endocrine: No heat or cold intolerance. No recent weight gain. Genitourinary: No dysuria or hematuria. All other 14 point ROS negative except the above Past Medical History Past Medical History: Coronary Artery Disease (CAD), Heart Failure, Diabetes Mellitus, GERD/Reflux, Hearing Disorder / Deafness, Hyperlipidemia, Hypertension, Musculoskeletal Disorder, Osteoarthritis (OA), Prostate Disorder, Renal Disease, Thyroid Disorder Additional Past Medical History / Comment(s): ANEMIA; SHORTNESS OF BREATH W/ A CTIVITY. SWELLING IN LOWER EXTREMITIES, VARICOSE VEINS. ENLARGED PROSTATE. GOUT. MULT LGE MOLES, TOM BACK. family states stage 3 kidney disease History of Any Multi-Drug Resistant Organisms: None Reported Past Surgical History: Back Surgery, Heart Catheterization With Stent, Hernia Repair, Joint Replacement, Orthopedic Surgery Additional Past Surgical History / Comment(s): CARPAL TUNNEL, ROTATOR CUFF REPAIR, PETE KNEE REPLACEMENT, has Rods/ CAGE in his back. Right Hip replacement. LAP REDUCTION/REPAIR HIATAL HERNIA 02/25/17. Past Anesthesia/Blood Transfusion Reactions: No Reported Reaction Date of Last Stent Placement:: 2006 Past Psychological History: Anxiety, Depression Additional Psychological History / Comment(s): MILD Smoking Status: Never smoker Past Alcohol Use History: Rare Past Drug Use History: None Reported - Past Family History Sister(s) Family Medical History: Cancer Brother(s) Family Medical History: Cancer Father Family Medical History: Cancer Additional Family Medical History / Comment(s): . Mother Family Medical History: Congestive Heart Failure (CHF) Medications and Allergies Home Medications Medication Instructions Recorded Confirmed Type Gabapentin [Neurontin] 300 mg PO DAILY@0700 08/31/13 05/23/18 History Tamsulosin [Flomax] 0.4 mg PO DAILY@1200 08/31/13 05/23/18 History Furosemide [Lasix] 80 mg PO DAILY@0700 12/17/13 05/23/18 History Levothyroxine Sodium [Synthroid] 75 mcg PO DAILY@1200 12/17/13 05/23/18 History Allopurinol [Zyloprim] 300 mg PO HS@0 03/10/14 05/23/18 History Donepezil [Aricept] 10 mg PO HS@219911/13/15 05/23/18 History Ferrous Sulfate [Iron (65 MG 325 mg PO BID@0700,1800 11/13/15 05/23/18 History Elemental)] Isosorbide Mononitrate [Imdur] 120 mg PO DAILY@0700 11/13/15 05/23/18 History Multivit-Min/FA/Lycopen/Lutein 1 tab PO DAILY@0700 11/13/15 05/23/18 History [Centrum Silver Tablet] Folic Acid 1 mg PO AC-SUPPER@1800 01/18/17 05/23/18 History Terazosin [Hytrin] 5 mg PO HS@2200 05/23/17 05/23/18 History Epoetin Garrett [Procrit] 10,000 unit INJ Q7D PRN 04/30/18 05/23/18 History Gabapentin [Neurontin] 600 mg PO HS@2200 04/30/18 05/23/18 History Insulin Aspart Protam & Aspart See Protocol SQ AC-BID 04/30/18 05/23/18 History [NovoLOG MIX 70-30 Flexpen] Omeprazole [PriLOSEC] 10 mg PO DAILY@1200 04/30/18 05/23/18 History Ondansetron [Zofran] 4 mg PO BID 04/30/18 05/23/18 History metFORMIN HCL 1,000 mg PO BID@0700,2200 04/30/18 05/23/18 History ALPRAZolam [Xanax] 0.25 mg PO BID@0700,2200 05/23/18 05/23/18 History Apixaban [Eliquis] 2.5 mg PO BID@0700,1800 05/23/18 05/23/18 History Atorvastatin [Lipitor] 40 mg PO HS@2200 05/23/18 05/23/18 History Furosemide [Lasix] 40 mg PO DAILY@1200 05/23/18 05/23/18 History Magnesium Oxide [Mag-Ox] 250 mg PO BID@0700,1800 05/23/18 05/23/18 History Metoprolol Tartrate [Lopressor] 25 mg PO BID@0700,1800 05/23/18 05/23/18 History Allergies Allergy/AdvReac Type Severity Reaction Status Date / Time baclofen Allergy Severe Unknown Verified 05/23/18 19:34 morphine Allergy Nausea & Verified 05/23/18 19:34 Vomiting sulfamethoxazole Allergy Rash/Hives Verified 05/23/18 19:34 [From Bactrim] trimethoprim [From Bactrim] Allergy Rash/Hives Verified 05/23/18 19:34 cow hair Allergy Anaphylaxis Uncoded 04/30/18 16:15 Physical Exam Vitals: Vital Signs Temp Pulse Resp BP Pulse Ox 05/24/18 08:00 87 19 109/69 05/24/18 04:00 96.4 F L 98 16 108/65 95 05/24/18 03:48 20 05/24/18 00:00 97.8 F 85 20 135/74 98 05/23/18 20:00 98.3 F 89 20 129/92 98 05/23/18 18:20 98.1 F 85 18 120/69 98 Intake and Output 05/23/18 05/24/18 05/24/18 22:59 06:59 14:59 Intake Total 180 150 Output Total 300 1650 Balance -120 -1500 Intake: Oral 180 150 Output: Urine 300 1650 Other: Voiding Method Toilet Toilet Urinal Urinal # Voids 1 1 Weight 90.378 kg 89 kg PHYSICAL EXAMINATION: Patient is lying in the bed comfortably, no acute distress, awake alert and oriented.. HEENT: Normocephalic. Neck is supple. Pupils reactive. Nostrils clear. Oral cavity is moist. Ears reveal no drainage. Neck reveals no JVD, carotid bruits, or thyromegaly. CHEST EXAMINATION: Trachea is central. Symmetrical expansion. Bibasilar diminished air entry. Lung harris clear to auscultation and percussion. CARDIAC: Normal S1, S2 with no gallops. No murmurs ABDOMEN: Soft. Bowel sounds normal. No organomegaly. No abdominal bruits. Extremities: 1+ edema. No clubbing or cyanosis Neurologically awake, alert, oriented x3 with well-coordinated movements. No focal deficits noted Skin: No rash or skin lesions. Psychiatric: Coperative. Nonsuicidal Musculoskeletal: No joint swelling or deformity. Normal range of motion. Results CBC & Chem 7: 05/24/18 06:24 05/24/18 06:24 Labs: Abnormal Lab Results - Last 24 Hours (Table) 05/23/18 05/24/18 05/24/18 Range/Units 21:28 06:06 06:24 RBC 2.88 L (4.30-5.90) m/uL Hgb 9.4 L (13.0-17.5) gm/dL Hct 28.1 L (39.0-53.0) % RDW 18.6 H (11.5-15.5) % BUN (9-20) mg/dL Creatinine (0.66-1.25) mg/dL Glucose (74-99) mg/dL POC Glucose (mg/dL) 186 H 129 H (75-99) mg/dL 05/24/18 Range/Units 06:24 RBC (4.30-5.90) m/uL Hgb (13.0-17.5) gm/dL Hct (39.0-53.0) % RDW (11.5-15.5) % BUN 59 H (9-20) mg/dL Creatinine 2.14 H (0.66-1.25) mg/dL Glucose 110 H (74-99) mg/dL POC Glucose (mg/dL) (75-99) mg/dL Thrombosis Risk Factor Assmnt - DVT/VTE Prophylaxis DVT/VTE Prophylaxis: Pharmacologic Prophylaxis ordered - Choose All That Apply Any of the Below Risk Factors Present?: Yes Each Factor Represents 1 point: Abnormal pulmonary function (COPD), Serious lung disease incl. pneumonia (< 1month) Other Risk Factors: Yes Each Risk Factor Represents 3 Points: Age 75 years or older Other congenital or acquired thrombophilia - If yes, enter type in comment: No Thrombosis Risk Factor Assessment Total Risk Factor Score: 5 Thrombosis Risk Factor Assessment Level: High Risk Assessment and Plan Assessment: Acute diarrhea. Likely infectious. Improving now Acute on chronic kidney disease stage III. Creatinine 2.1 for baseline creatinine 1.8 Acute on chronic CHF with diastolic and mild systolic dysfunction ejection fraction 45-50% Chronic atrial fibrillation on anticoagulation. Hypertension Diabetes type 2 Hypothyroidism GERD Hearing disorder/deafness Hyperlipidemia Osteoarthritis BPH Chronic anemia Anxiety/depression Dementia Plan: Patient be continued on gentle diuresis. Monitor renal function. Monitor H&H and continue with home medications. Cardiology and nephrology is on board. Further recommendations based on the clinical course. Time with Patient: Greater than 30
[2018-05-24 17:00] VITALS: RESP 20
--- NOTE | 2018-05-24 20:41 | CONS ---
CONSULTATION REASON FOR CONSULT: Renal failure. HISTORY OF PRESENT ILLNESS: The patient is an 87-year-old male who was admitted to the hospital this morning with complaints of shortness of breath. Patient has also been weak and has been having diarrhea for the past 4 to 5 days. He has had cramping abdominal pain with some nausea. No complaints of chest pain. Patient states that he was recently hospitalized for fluid overload and CHF exacerbation on 04/30/2018. Patient was diuresed and discharged on oral Lasix 40 mg p.o. b.i.d. He was also diagnosed with influenza about 3 to 4 weeks prior to his admission in April. Serum creatinine was 2.14 on admission previously. It had been 1.7 to 1.8 mg/dL during his last admission. Patient does have chronic kidney disease, NKF stage IIIB to IV, with baseline creatinine about 1.4 to 1.5 mg/dL, most recently staying at about 1.7 to 1.6 as of April of 2018. Patient's blood pressure is slightly on the lower side, with systolic around 119 to 106 mm of Hg. Currently patient is maintained again on IV Lasix. He states he is feeling slightly better. Chest x-ray from this admission shows bilateral infiltrate and small effusions with suggestion for mild CHF. PAST MEDICAL HISTORY: 1. Hypertension. 2. Chronic kidney disease, stage IIIB, secondary to nephrosclerosis. 3. Cardiomyopathy, ejection fraction 45% to 50%, with concentric LVH and severely dilated left atrium. 4. Type 2 diabetes. 5. BPH. 6. Hypothyroidism. 7. Osteoarthritis. PAST SURGICAL HISTORY: 1. Back surgery. 2. Cardiac catheterization. 3. Coronary stent placement. 4. Hernia repair. 5. Carpal tunnel surgery. 6. Rotator cuff repair. 7. Bilateral knee arthroplasty. 8. Right hip replacement. 9. Hiatal hernia repair. SOCIAL HISTORY: Negative for smoking, drug abuse or alcohol abuse. Patient does have a history of anxiety and depression. MEDICATIONS: Medications at home prior to admission included: 1. Neurontin. 2. Zocor. 3. Lasix. 4. Flomax. 5. Zyloprim. 6. Aricept. 7. Hytrin. 8. Procrit. 9. Neurontin. 10.Prilosec. 11.Zofran. 12.Eliquis. 13.Lopressor. 14.Magnesium. ALLERGIES: Include: 1. BACLOFEN. 2. MORPHINE. 3. BACTRIM. REVIEW OF SYSTEMS: As per HPI. Other systems negative. PHYSICAL EXAMINATION: Patient is comfortable, awake. He is not in any acute distress. He is alert and oriented x3. Blood pressure this morning 109/69, heart rate 66 per minute. Patient is afebrile. EXAMINATION OF THE HEART: S1 and S2. EXAMINATION OF LUNGS: Bilateral breath sounds are heard. ABDOMEN: Soft, non-tender. Examination of lower extremities shows chronic skin changes. Edema is noted, 1+ bilaterally. HEALTH PROGRAM DIRECTOR exam is grossly intact. LABS: Hemoglobin 9.4, sodium 138, potassium 3.7, BUN 59, serum creatinine 2.14. ProBNP 6390. UA shows trace protein. ASSESSMENT: 1. Acute kidney injury, possibly prerenal, with history of diarrhea prior to admission. However, patient does not appear to be significantly volume-depleted. He does have lower extremity edema and chest x-ray suggestive of mild CHF. I will continue with the current dose of IV Lasix and repeat labs in a.m. Patient is not on any nephrotoxic medications at this time. We need to rule out urine retention, and I will check a post-void residual. 2. Diarrhea, possibly viral, currently improved. 3. Cardiomyopathy, ejection fraction 45% to 50%, based on last admission. 4. Coronary artery disease with previous coronary artery stenting. 5. Chronic kidney disease, stage III, secondary to nephrosclerosis and possibly underlying diabetic kidney disease as well. UA does show trace protein. 6. Anemia of chronic disease. Rule out iron deficiency. PLAN: Continue with current dose of Lasix. Check iron levels. Repeat labs in a.m. and check post-void residual. Thank you for this consultation. Will continue to follow the patient with you during his hospitalization. MMODL / IJN: [id number] /
[2018-05-24 21:17] LABS: Glucose,Whole Blood 184 mg/dL (75-99)
[2018-05-24] MEDS: DONEPEZIL 10 MG TAB PO SCH (21:41)
[2018-05-24] MEDS: ATORVASTATIN 40 MG TAB PO SCH (21:42)
[2018-05-25 05:51] LABS: Glucose,Whole Blood 144 mg/dL (75-99)
[2018-05-25] MEDS: METOPROLOL TARTRATE 25 MG TAB PO SCH (06:29)
[2018-05-25] MEDS: INSULIN ASPART (NovoLOG) 100 UNIT/ML VIAL SQ SCH ×2 (06:29→11:51)
[2018-05-25] MEDS: ISOSORBIDE MONONITRATE ER 60 MG TAB.ER.24H PO SCH (06:29)
[2018-05-25] MEDS: APIXABAN 2.5 MG TABLET PO SCH (06:29)
[2018-05-25] MEDS: ALPRAZolam 0.25 MG TAB PO SCH (06:29)
[2018-05-25] MEDS: MAGNESIUM OXIDE 400 MG TAB PO SCH (06:29)
[2018-05-25] MEDS: FUROSEMIDE 10 MG/ML 2 ML VIAL IV SCH (08:27)
--- NOTE | 2018-05-25 10:15 | P.PN ---
Progress Note - Text Progress Note Date: 05/25/18 This 87-year-old gentleman was very hard of hearing with known case of ischemic heart disease, hypertension, chronic persistent atrial fibrillation, diabetes, hyperlipidemia, hypothyroidism, and chronic kidney disease was recently discharged from this hospital about 2 weeks ago. Patient is now admitted with complaints of several bouts of diarrhea and feeling extremely weak. Patient was taken to [facility] and subsequently transferred here. Patient is feeling better today. Not having any significant pain, diarrhea. Denies any symptoms chest pain or shortness of breath. His BUN/creatinine are elevated. This most probably is from dehydration. Lungs appeared clear. Heart is regular. There doesn't seem to be significant CHF at this time. His BUN/creatinine to check her today. If they're stable, patient could be discharged home. Follow-up with the Dr. Cates as an outpatient. GENERAL EXAM: Patient is alert and oriented and doesn't appear to be in any acute distress HEENT: Normocephalic. Normal reaction of pupils, equal size, normal range of extraocular motion. No erythema or exudates in the throat. NECK: No masses, no nuchal rigidity. CHEST: No chest wall deformity. LUNGS: Equal air entry with no crackles or wheeze. HEART: S1 and S2 normal . Irregular heart sounds ABDOMEN: No hepatosplenomegaly, normal bowel sounds, no guarding or rigidity. SKIN: No rashes CENTRAL NERVOUS SYSTEM: No focal deficits. EXTREMITIES: No cyanosis, clubbing or edema. No Final impression: #1. Acute diarrhea. #2. Acute renal failure and dehydration secondary to diarrhea. #3. Chronic congestive heart failure #4. Chronic atrial fibrillation. #5. Ischemic heart disease. #7. Hypertensive coronary vascular disease. Plan: Patient could be discharged home if his BUN/creatinine are stable. Follow-up with the Dr. Cates as an outpatient
[2018-05-25 10:23] LABS: Potassium 3.7 mmol/L (3.5-5.1)
[2018-05-25 11:24] LABS: Glucose,Whole Blood 168 mg/dL (75-99)
[2018-05-25 11:30] LABS: Iron Saturation 15.92 (15.00-50.00)
[2018-05-25] MEDS: LEVOTHYROXINE 75 MCG TAB PO SCH (11:50)
[2018-05-25] MEDS: PANTOPRAZOLE 40 MG TABLET PO SCH (11:51)
[2018-05-25] MEDS: TAMSULOSIN 0.4 MG CAP.ER.24H PO SCH (11:51)
[2018-05-25 12:05] VITALS: BP 105/71; PULSE 59; TEMP 97.7
--- NOTE | 2018-05-25 14:36 | P.DS ---
Providers Date of admission: 05/23/18 18:05 Expected date of discharge: 05/25/18 Attending physician: Jatinder Dawn Consults: 05/23/18 20:53 Consult Physician Routine Consulting Provider: Monster Alaniz Consult Reason/Comments: CHF Do you want consulting provider notified?: Yes, Notify in am Placement Type Exists?: Yes 05/23/18 20:54 Consult Physician Routine Consulting Provider: Renetta Adorno Consult Reason/Comments: AKD Do you want consulting provider notified?: Yes, Notify in am Placement Type Exists?: Yes Primary care physician: [facility] Course: Discharge diagnosis Acute diarrhea. Likely infectious. Resolved now. Acute on chronic kidney disease stage III. Creatinine 2.1 for baseline creatinine 1.8. Creatinine level improved to 1.86 today. Acute on chronic CHF with diastolic and mild systolic dysfunction ejection fraction 45-50% Chronic atrial fibrillation on anticoagulation. Hypertension Diabetes type 2 Hypothyroidism GERD Hearing disorder/deafness Hyperlipidemia Osteoarthritis BPH Chronic anemia and anemia of chronic disease Anxiety/depression Dementia Hospital course Patient is a 87-year-old male with a known history of coronary artery disease status post stent placement, hypertension, CHF, chronic persistent atrial fibrillation, diabetes type 2, hypothyroidism and osteoarthritis was initially presented to [facility] with complaints of diarrhea for the past 4 days prior to admission and generalized weakness. Patient is having diarrhea with loose stools and cramping abdominal pain since last Tuesday along with nausea and vomiting. Patient also having slightly increased leg swelling and shortness of breath. Patient was admitted to the [facility] and was monitored overnight. Patient was found to have elevated creatinine level and along with CHF with BNP level 7260. Patient was given Lasix and improvement in chest x-ray the following day. Patient is also on anticoagulation due to chronic atrial fibrillation. Hemoglobin level was 9.6 on admission and her hemoglobin slightly dropped on the following day at 9.2. Patient was eventually transferred to [facility] for cardiac and nephrology evaluation. FOBT was positive at the time. Patient was recently discharged from the hospital about 2 weeks ago. BUN 55, Creatinine 2.4 and WBC count 5.2 and hemoglobin 9.6. Troponin 0.033. Current BNP level is 6390 Creatinine was 1.[address] head showed no acute intracranial process. chest x-ray showed bilateral infiltrate and small effusion. Underlying COPD noted. Correlate for mild CHF otherwise consider pneumonia. EKG showed atrial fibrillation with right bundle branch block pattern. Recent echocardiogram showed ejection fraction 45-50% with mild to moderate mitral regurgitation. Patient denied any diarrhea today. Patient did have more formed stool today. 04/27/2018 Patient says that his breathing is better today. No commerce of chest pain or worsening short of breath. Patient still having bilateral lower extremities swelling but improved. Renal function improved with creatinine level I.86. Patient was continued on IV Lasix 20 mg twice a day. Patient takes 80 mg of Lasix twice daily at home currently. We'll reduce to 40 mg to twice a day. Diarrhea is completely resolved. Monitor blood pressure closely. Patient is cleared from cardiology standpoint as well. Patient is stable to be discharged to infection care facility. PHYSICAL EXAMINATION: Patient is lying in the bed comfortably, no acute distress, awake alert and oriented.. HEENT: Normocephalic. Neck is supple. Pupils reactive. Nostrils clear. Oral cavity is moist. Ears reveal no drainage. Neck reveals no JVD, carotid bruits, or thyromegaly. CHEST EXAMINATION: Trachea is central. Symmetrical expansion. Lung harris clear to auscultation and percussion. CARDIAC: Normal S1, S2 with no gallops. No murmurs ABDOMEN: Soft. Bowel sounds normal. No organomegaly. No abdominal bruits. Extremities: reveal no edema. No clubbing or cyanosis Neurologically awake, alert, oriented x3 with well-coordinated movements. No focal deficits noted Skin: No rash or skin lesions. Psychiatric: Coperative. Nonsuicidal Musculoskeletal: No joint swelling or deformity. Normal range of motion. Vital Signs 05/25/18 05/25/18 08:31 12:02 Temperature 97.8 F 97.7 F Pulse Rate [ 92 59 L Pulse Oximetery ] Respiratory 18 18 Rate Blood Pressure 115/65 105/71 [Right Arm] O2 Sat by Pulse 95 97 Oximetry Total time taken greater than 35 minutes including 18 minutes for counseling and coordination of care. Plan - Discharge Summary New Discharge Prescriptions: New Furosemide [Lasix] 40 mg PO BID #30 tablet Continue Tamsulosin [Flomax] 0.4 mg PO DAILY@1200 Levothyroxine Sodium [Synthroid] 75 mcg PO DAILY@1200 Allopurinol [Zyloprim] 300 mg PO HS@2200 Donepezil [Aricept] 10 mg PO HS@2200 Ferrous Sulfate [Iron (65 MG Elemental)] 325 mg PO BID@0700,1800 Isosorbide Mononitrate [Imdur] 120 mg PO DAILY@0700 Multivit-Min/FA/Lycopen/Lutein [Centrum Silver Tablet] 1 tab PO DAILY@0700 Folic Acid 1 mg PO AC-SUPPER@1800 Terazosin [Hytrin] 5 mg PO HS@2200 Ondansetron [Zofran] 4 mg PO BID Insulin Aspart Protam & Aspart [NovoLOG MIX 70-30 Flexpen] See Protocol SQ AC-BID metFORMIN HCL 1,000 mg PO BID@0700,2200 Omeprazole [PriLOSEC] 10 mg PO DAILY@1200 Epoetin Garrett [Procrit] 10,000 unit INJ Q7D PRN PRN Reason: ANEMIA ALPRAZolam [Xanax] 0.25 mg PO BID@0700,2200 Magnesium Oxide [Mag-Ox] 250 mg PO BID@0700,1800 Metoprolol Tartrate [Lopressor] 25 mg PO BID@0700,1800 Atorvastatin [Lipitor] 40 mg PO HS@2200 Apixaban [Eliquis] 2.5 mg PO BID@0700,1800 Changed Gabapentin [Neurontin] 300 mg PO BID #30 cap Discontinued Furosemide [Lasix] 80 mg PO DAILY@0700 Gabapentin [Neurontin] 600 mg PO HS@2200 Furosemide [Lasix] 40 mg PO DAILY@1200 Discharge Medication List Tamsulosin [Flomax] 0.4 mg PO DAILY@1200 08/31/13 [History] Levothyroxine Sodium [Synthroid] 75 mcg PO DAILY@1200 12/17/13 [History] Allopurinol [Zyloprim] 300 mg PO HS@2200 03/10/14 [History] Donepezil [Aricept] 10 mg PO HS@2200 11/13/15 [History] Ferrous Sulfate [Iron (65 MG Elemental)] 325 mg PO BID@0700,1800 11/13/15 [History] Isosorbide Mononitrate [Imdur] 120 mg PO DAILY@0700 11/13/15 [History] Multivit-Min/FA/Lycopen/Lutein [Centrum Silver Tablet] 1 tab PO DAILY@0700 11/13/15 [History] Folic Acid 1 mg PO AC-SUPPER@1800 01/18/17 [History] Terazosin [Hytrin] 5 mg PO HS@219905/23/17 [History] Epoetin Garrett [Procrit] 10,000 unit INJ Q7D PRN 04/30/18 [History] Insulin Aspart Protam & Aspart [NovoLOG MIX 70-30 Flexpen] See Protocol SQ AC- BID 04/30/18 [History] Omeprazole [PriLOSEC] 10 mg PO DAILY@1200 04/30/18 [History] Ondansetron [Zofran] 4 mg PO BID 04/30/18 [History] metFORMIN HCL 1,000 mg PO BID@0700,0 04/30/18 [History] ALPRAZolam [Xanax] 0.25 mg PO BID@0700,2200 05/23/18 [History] Apixaban [Eliquis] 2.5 mg PO BID@0700,1800 05/23/18 [History] Atorvastatin [Lipitor] 40 mg PO HS@219905/23/18 [History] Magnesium Oxide [Mag-Ox] 250 mg PO BID@0700,1800 05/23/18 [History] Metoprolol Tartrate [Lopressor] 25 mg PO BID@0700,1800 05/23/18 [History] Furosemide [Lasix] 40 mg PO BID #30 tablet 05/25/18 [Rx] Gabapentin [Neurontin] 300 mg PO BID #30 cap 05/25/18 [Rx] Activity/Diet/Wound Care/Special Instructions: [facility] Discharge Disposition: TRANSFER TO SNF/ECF
--- NOTE | 2018-05-25 16:27 | PN ---
PROGRESS NOTE Patient is seen for followup for acute kidney injury and chronic kidney disease. He is currently being gently diuresed. Renal function is better, with creatinine decreasing from 2.1 to 1.8 mg/dL. Patient is doing well. He is actually going home today. On examination, blood pressure was 105/71, heart rate 59 per minute. He is afebrile. EXAMINATION OF THE HEART: S1 and S2. EXAMINATION OF LUNGS: Bilateral breath sounds are heard. ABDOMEN: Soft, non-tender. Examination of lower extremities shows chronic edema bilaterally. CONSULTANT TEACHER exam is grossly intact. Labs show sodium 140, potassium 3.7, BUN 53, serum creatinine 1.82. ASSESSMENT: 1. Acute kidney injury, currently improved, prerenal versus component of cardiorenal as well. Patient is maintained on small dose of IV Lasix. Renal function is improving. He is advised to resume his oral dose of diuretics at home. 2. Diarrhea, currently resolved. 3. Cardiomyopathy, ejection fraction 45% to 50%. 4. Congestive heart failure, currently improved. 5. Chronic kidney disease, stage III, secondary to nephrosclerosis. 6. Congestive heart failure, acute on top of chronic, mainly systolic. PLAN: Resume previous dose of oral diuretics at home and follow up as outpatient in about 1 to 2 weeks. MMODL / IJN: [id number] /
== END 2018-05-25 15:34 | DRG 291 ==
LOC: 3SCARD 18:05
PROVIDERS: ADMIT Internal Medicine; ATTEND Internal Medicine
DX: I13.0 Hypertensive heart and chronic kidney disease with heart failure and stage 1 through stage 4 chronic kidney disease, or unspecified chronic kidney disease (principal); I50.43 Acute on chronic combined systolic (congestive) and diastolic (congestive) heart failure; N17.9 Acute kidney failure, unspecified; I48.1 Persistent atrial fibrillation; A09 Infectious gastroenteritis and colitis, unspecified; E86.0 Dehydration; J44.9 Chronic obstructive pulmonary disease, unspecified; E11.22 Type 2 diabetes mellitus with diabetic chronic kidney disease; N18.3 Chronic kidney disease, stage 3 (moderate); E03.9 Hypothyroidism, unspecified; F03.90 Unspecified dementia, unspecified severity, without behavioral disturbance, psychotic disturbance, mood disturbance, and anxiety; I34.0 Nonrheumatic mitral (valve) insufficiency; I45.10 Unspecified right bundle-branch block; I42.9 Cardiomyopathy, unspecified; D63.8 Anemia in other chronic diseases classified elsewhere; I25.10 Atherosclerotic heart disease of native coronary artery without angina pectoris; K21.9 Gastro-esophageal reflux disease without esophagitis; H91.90 Unspecified hearing loss, unspecified ear; E78.5 Hyperlipidemia, unspecified; M19.90 Unspecified osteoarthritis, unspecified site; N40.0 Benign prostatic hyperplasia without lower urinary tract symptoms; F41.9 Anxiety disorder, unspecified; F32.9 Major depressive disorder, single episode, unspecified; I83.90 Asymptomatic varicose veins of unspecified lower extremity; M10.9 Gout, unspecified; Z79.01 Long term (current) use of anticoagulants; Z79.890 Hormone replacement therapy; Z79.899 Other long term (current) drug therapy; Z96.653 Presence of artificial knee joint, bilateral; Z96.641 Presence of right artificial hip joint; Z95.5 Presence of coronary angioplasty implant and graft; Z88.5 Allergy status to narcotic agent; Z88.2 Allergy status to sulfonamides; Z88.8 Allergy status to other drugs, medicaments and biological substances; Z91.048 Other nonmedicinal substance allergy status; Z82.49 Family history of ischemic heart disease and other diseases of the circulatory system; Z80.8 Family history of malignant neoplasm of other organs or systems
CPT/HCPCS: 71045; 80048; 83540; 83550; 83880; 85025